=== PATIENT | female | born 1935 | race Caucasian/White ===

== ENCOUNTER 2017-03-20 21:20 | Emergency (ER) | payer MEDICARE, OTHER ==
--- NOTE | ~2017-03-20 | CT71 ---
[facility] A Service [facility] RADIOLOGY TEXT RESULTS PATIENT: DELONTE HERRING LOCATION: [facility] : 37 UNIT #: [id number] AGE: [address]: Reyna Mccarthy MD SEX: F ORDER DR: [id number] [place] [id number] [facility]. [place], [place] [address] [id number] E MR#: [id number] Acc #: [id number] NAME: DELONTE HERRING : 1935 SEX: F STUDY DATE/TIME: 03/20/2017 23:50 UNIT: [facility] ROOM: STUDY DESCRIPTION: CT Head Wo Contrast Attending Physician: Reyna Mccarthy M.D. Ordering Physician: Reyna Mccarthy M.D. Primary Care Physician: Sofiya Flowers M.D. MEDICAL IMAGING REPORT This report is preliminary unless electronic signature is present EXAM CT head INDICATIONS Headache for [address] of the head without contrast. This CT exam was performed with one or more of the following radiation dose reduction techniques: Automatic exposure control, adjustment of mA and/or kV according to patient size, and iterative reconstruction. COMPARISON 04/11/2014. FINDINGS Axial noncontrast images were obtained from the skull base to the vertex. Ventricular size and configuration are normal. There is no evidence of acute infarct or hemorrhage. There are no extra-axial fluid collections. No mass lesion or mass effect is seen. There are no skull fractures. There is moderate atherosclerotic calcifications within the intracranial vasculature. IMPRESSION Normal noncontrast head CT. Dictated by... Tapan Dye M.D. THIS IS AN ELECTRONICALLY VERIFIED REPORT Tapan Dye M.D. at 03/21/2017 4:02 AM [facility] A Service [facility] RADIOLOGY TEXT RESULTS PATIENT: DELONTE HERRING LOCATION: [facility] : 37 UNIT #: [id number] AGE: [address]: Reyna Mccarthy MD SEX: F ORDER DR: Milly TD: 03/21/2017 03:29 JOB #: [id number] MEDICAL IMAGING REPORT Page 1 of 1 COPY
[~2017-03-20 21:20] MED LIST: ACETAMINOPHEN PO; ALBUTEROL17 GM INH; ATENOLOL25 MG PO; COUMADIN2.5 MG PO; COUMADIN3 MG PO; COUMADIN5 MG PO; FUROSEMIDE40 MG PO; GLIPIZIDE10 MG PO; GLUCOTROL10 MG PO; IMDUR-ER30 M2 PO; JANUVIA50 MG PO; LANOXICAPS0.1 M1 PO; LANOXIN PO; LASIX PO; LIPITOR PO; LISINOPRIL5 MG PO; METFORMIN HCL1000 M1 PO; METFORMIN HCL500 M1 PO; METFORMIN PO; NORCO 5/325 TAB1 TAB PO; PERCOCET5/325 PO; SIMVASTATIN20 MG PO; TENORMIN25 M1 PO; VENTOLIN5 MG/ML; ZESTRIL5 MG PO
[2017-03-20] MEDS ORDERED: COUMADIN5 MG PO (21:37)
[2017-03-20] MEDS ORDERED: METFORMIN HCL1000 M1 PO (21:37)
[2017-03-20] MEDS ORDERED: LASIX PO (21:38)
[2017-03-20] MEDS ORDERED: IMDUR-ER30 M1 PO (21:38)
[2017-03-20] MEDS ORDERED: ZESTRIL10 M1 PO (21:38)
[2017-03-20] MEDS ORDERED: VIT B-12 PO (21:38)
[2017-03-20] MEDS ORDERED: ADVANCED EYE RE OU (21:39)
[2017-03-20] MEDS ORDERED: LORTAB 5-325 M1 EACH PO (21:39)
== END 2017-03-21 04:00 | disposition home or self-care (01) ==
LOC: CED 21:20
DX: R51 Headache (principal); Z88.8 Allergy status to other drugs, medicaments and biological substances; Z79.899 Other long term (current) drug therapy; Z79.01 Long term (current) use of anticoagulants
CPT/HCPCS: 70450; 99284

== ENCOUNTER 2017-04-06 15:19 | Inpatient (IN) | payer MEDICARE, OTHER ==
--- NOTE | ~2017-04-06 | CR63 ---
[facility] A Service of [facility] RADIOLOGY TEXT RESULTS PATIENT: DELONTE HERRING LOCATION: [facility] 568-01 : 37 UNIT #: [id number] AGE: [address]: Hima Norman MD SEX: F ORDER DR: [id number] [facility] [address] [place], [place] [address] [id number] I MR#: [id number] Acc #: [id number] NAME: DELONTE HERRING : 1935 SEX: F STUDY DATE/TIME: 04/17/2017 15:31 UNIT: [facility] ROOM: [facility] STUDY DESCRIPTION: CR Chest 2 View Attending Physician: Hima Norman M.D. Ordering Physician: Jose Hnog M.D. Primary Care Physician: Sofiya Flowers M.D. MEDICAL IMAGING REPORT This report is preliminary unless electronic signature is present EXAM Chest 04/17/2017 15:31 hours HISTORY 81-year-old woman, short of air cough, respiratory failure. History of diabetes, lymphoma. COMPARISON Chest 04/16/2017. FINDINGS 2-view chest demonstrates cardiomegaly with vascular congestion and prominent bilateral pleural effusions. Right neck approach central line remains well positioned. No appreciable improvement over the past 24 hours. IMPRESSION Findings consistent with congestive heart failure with bilateral pleural effusions. Central line remains satisfactorily positioned Dictated by... Nicolas Bhakta M.D. THIS IS AN ELECTRONICALLY VERIFIED REPORT Nicolas Bhakta M.D. at 04/18/2017 9:39 AM KHADRA/grace TD: 04/17/2017 19:57 JOB #: [id number] MEDICAL IMAGING REPORT Page 1 of 1 COPY
--- NOTE | ~2017-04-06 | CR72 ---
[facility] A Service of [facility] RADIOLOGY TEXT RESULTS PATIENT: DELONTE HERRING LOCATION: [address] : 37 UNIT #: [id number] AGE: [address]: Hima Norman MD SEX: F ORDER DR: [id number] [facility] [address] [place], [place] [address] [id number] I MR#: [id number] Acc #: [id number] NAME: DELONTE HERRING. : 1935 SEX: F STUDY DATE/TIME: 04/13/2017 5:26 UNIT: [facility] ROOM: [facility] STUDY DESCRIPTION: CR Chest Single View Portable Attending Physician: Hima Norman M.D. Ordering Physician: Jose Hong M.D. Primary Care Physician: Sofiya Flowers M.D. MEDICAL IMAGING REPORT This report is preliminary unless electronic signature is present EXAM Portable chest INDICATION Follow up tracheostomy tube and infiltrates. FINDINGS Today's portable view of the chest shows no change from yesterday's study. The central venous catheter and endotracheal tube are stable. There is left lower lobe atelectasis or infiltrate. Dictated by... Geoff Aceves M.D. THIS IS AN ELECTRONICALLY VERIFIED REPORT Geoff Aceves M.D. at 04/13/2017 1:55 PM BIRGIT/petar TD: 04/13/2017 06:32 JOB #: [id number] MEDICAL IMAGING REPORT Page 1 of 1 COPY
--- NOTE | ~2017-04-06 | CR72 ---
[facility] A Service of [facility] RADIOLOGY TEXT RESULTS PATIENT: DELONTE HERRING LOCATION: [address] : 37 UNIT #: [id number] AGE: [address]: Hima Norman MD SEX: F ORDER DR: [id number] [facility] [address] [place], [place] [address] [id number] I MR#: [id number] Acc #: [id number] NAME: DELONTE HERRING. : 1935 SEX: F STUDY DATE/TIME: UNIT: [facility] ROOM: [facility] STUDY DESCRIPTION: CR Chest Single View Portable Attending Physician: Hima Norman M.D. Ordering Physician: Michele Nagel M.D. Primary Care Physician: Sofiya Flowers M.D. MEDICAL IMAGING REPORT This report is preliminary unless electronic signature is present EXAM Portable chest 04/15 at 04:21 INDICATIONS Shortness of air, CHF. Ventilator patient. TECHNIQUE/COMPARISON AP portable chest compared with 04/14/2017 FINDINGS Cardiomegaly is stable. ET tube and right IJ line remain in good position. There is a small left effusion. There is still some mild infiltrates in both mid and lower lungs, but they are slightly improved in the interval. No pneumothorax. Dictated by... Jeffrey Vance Jr., M.D. THIS IS AN ELECTRONICALLY VERIFIED REPORT Jeffrey Vance Jr., M.D. at 04/15/2017 9:26 PM RLK/douglas TD: 04/15/2017 11:33 JOB #: [id number] MEDICAL IMAGING REPORT Page 1 of 1 COPY
--- NOTE | ~2017-04-06 | CR72 ---
[facility] A Service of [facility] RADIOLOGY TEXT RESULTS PATIENT: DELONTE HERRING LOCATION: [place] [id number] : 37 UNIT #: [id number] AGE: [address]: Hima Norman MD SEX: F ORDER DR: [id number] [facility] [address] [place], [place] [address] [id number] I MR#: [id number] Acc #: [id number] NAME: DELONTE HERRING : 1935 SEX: F STUDY DATE/TIME: 04/09/2017 8:10 UNIT: [facility] ROOM: [facility] STUDY DESCRIPTION: CR Chest Single View Portable Attending Physician: Hima Norman M.D. Ordering Physician: Chitra Escobar M.D. Primary Care Physician: Sofiya Flowers M.D. MEDICAL IMAGING REPORT This report is preliminary unless electronic signature is present EXAM AP portable chest 04/09/2017 HISTORY Shortness of breath today. History of congestive heart failure. COMPARISON AP portable chest 04/06/2017. FINDINGS Diffuse interstitial thickening in both lungs appear slightly increased, thought to represent worsening edema. There are small layering bilateral pleural effusions, increased on the right, new on the left. Stable degree of cardiac enlargement. No pneumothorax. IMPRESSION Features of interstitial edema appear increased compared to 04/02/2017 with increasing small bilateral pleural effusions. Dictated by... Kary Stallings M.D. THIS IS AN ELECTRONICALLY VERIFIED REPORT Kary Stallings M.D. at 04/10/2017 8:46 AM ORLY/petar TD: 04/09/2017 11:01 JOB #: [id number] MEDICAL IMAGING REPORT Page 1 of 1 COPY
--- NOTE | ~2017-04-06 | CO ---
Unit #: [id number] #: [id number] Patient: JODIE HERRING [id number] [address] [place], [place] [address] [id number] I MR#: [id number] NAME: JODIE HERRING ROOM: 568 Age: 81 Sex: F Admission Date: 04/06/2017 : 1935 Attending Physician: Hima Norman M.D. Primary Care Physician: Sofiya Flowers M.D. Consultation Date: 04/18/2017 CONSULTATION REPORT REASON FOR CONSULTATION Thrombocytopenia, please evaluate. HISTORY OF PRESENT ILLNESS Ms. Jodie Herring is 81 years old, well known to me with a history of low-grade non-Hodgkin lymphoma, treated with chemotherapy in 2011 when she presented with liver involvement, underwent rituximab reactivation of hepatitis B, which spontaneously subsided. She has since been followed without any evidence of disease. She was admitted to the hospital on 04/06/2017 with shortness of breathing and bilateral leg edema and was found to be in congestive heart failure and has been evaluated by Pulmonary as well as Nephrology with findings of worsening kidney function. She is a longstanding diabetic. Platelet count at the time of admission was normal as it has been in the office as an outpatient. Following admission on 04/06/2017, the platelet count was 209,000. Platelet count started dropping on 04/12/2017 to 133,000 and is currently 87,000 with a allan of 82,000. CBC on 04/07/2017 showed a white count of 5.9, hemoglobin is 10 and a platelet count of 185,000. Her current hemoglobin is 10.3, white count is 9.1. Ms. Verdin tells me she has been bruising, but this is not a new problem after being on Coumadin. No history of epistaxis, gum bleeding, melena, or hematochezia. No prior history of problems with thrombocytopenia except for immediately after her treatments. PAST MEDICAL HISTORY Hyperlipidemia, type 2 diabetes, hepatitis B, hypertension, and non-Hodgkin lymphoma as mentioned and diagnosed in 2011. She also has history of coronary artery disease and chronic atrial fibrillation on long-term anticoagulation with warfarin. PAST SURGICAL HISTORY Includes cholecystectomy, tonsillectomy, hysterectomy and cataract extraction. MEDICATIONS Both in and out of the hospital were reviewed. She received one dose of Lovenox on 04/15/2017, which is after the initiation of thrombocytopenia. Review of the medications does not show any new medications, which may be potentially culprits. Home medications include Coumadin, metformin, Januvia, Lasix, lisinopril, glipizide, Lipitor, hydrocodone and Symbicort. ALLERGIES Listed to macrolides, prednisone and simvastatin. Unit #: [id number] #: [id number] Patient: JODIE HERRING SOCIAL HISTORY Single lives by herself. Does not smoke. Quit drinking alcohol. She is . FAMILY HISTORY Negative for blood disorders except for sister with lung cancer. REVIEW OF SYSTEMS A 14-point review of systems was taken: CONSTITUTIONAL: Fatigue, weakness and decreased appetite. EYES: Negative. EARS, NOSE, MOUTH, AND THROAT: Some hardness of hearing. CARDIOVASCULAR: Shortness of breathing as discussed. No palpitations. RESPIRATORY: Shortness of breathing, cough, expectoration which is scant. No hemoptysis. GASTROINTESTINAL: Negative. GENITOURINARY: Negative. NEUROLOGIC: Negative. ALLERGIC: Negative. LYMPHATIC: Negative. SKIN: Decubitus ulcer. PHYSICAL EXAMINATION GENERAL: She is a pleasant woman, lying in bed, in mild distress secondary to shortness of breathing. VITAL SIGNS: Temperature is 97.5, pulse 88, respirations 18, blood pressure 120/66, pulse oximetry 97% on 2 L. HEENT: Shows pupils are equal, reactive well to light. She is pale, but not icteric. Mucosa moist. NECK: Without adenopathy, JVD, or thyromegaly. CARDIOVASCULAR: First and second heart sounds are heard and regular. LUNGS: Chest expansion is symmetric. Bilateral basal rales. ABDOMEN: Soft and nontender. Bowel sounds are active. No organomegaly. EXTREMITIES: Showed 1+ pitting pedal edema. Foot pulses present. NEUROLOGIC: She is awake, alert, and oriented x3 without any focal findings. SKIN: Scattered bruises probably related to her phlebotomies and a large bruise in the right forearm again related to blood draw. PSYCHIATRIC: Normal affect. ALLERGIC AND LYMPHATIC: Negative with no palpable lymph nodes. DIAGNOSTIC STUDIES LABORATORY RESULTS: Pro-time is 13.1, INR 3.5. Complete metabolic panel shows a BUN of 31 and creatinine is 1.98, EGFR is 24.6, albumin is 3.4, magnesium is 3.1. CBC today shows a white count of 9.1, hemoglobin is 10.3, and platelet count is 87,000. ASSESSMENT/PLAN Ms. Jodie Verdin is 81 years old with history of non-Hodgkin lymphoma, diagnosed in 2011, admitted with worsening of heart failure and acute on chronic kidney disease. She has moderate thrombocytopenia during the hospital stay, which may be marginally better with the platelet count currently being 89,000 and previously 87,000. She has had no significant changes in her hemoglobin during this hospital stay and this coupled with currently normal RDW would suggest that thrombotic microangiopathy is unlikely to be the cause. She has had mild thrombocytopenia following the chemotherapy in the past and this may be related to the stress of acute illness. She is also moderately anemic, much of which is chronic and Unit #: [id number] #: [id number] Patient: JODIE HERRING likely related to her chronic kidney disease. RECOMMENDATIONS 1. Iron studies to evaluate for Procrit, renal replacement therapy or parenteral iron supplementation. 2. LDH, retic count, haptoglobin. Review this with a peripheral smear to evaluate for thrombotic microangiopathy. 3. Continue serial observation of CBC. 4. Plans discussed with the patient. She likely will require skilled rehab placement after discharge. Thank you for allowing me to participate in her care. Dictated by... Harinder Thompson M.D. FRANCO/jomar TD: 04/19/2017 04:25 JOB #: [id number] CONSULTATION REPORT Page 1 of 1 X Harinder Thompson MD CONSULTATION REPORT
--- NOTE | ~2017-04-06 | CR72 ---
[facility] A Service of [facility] RADIOLOGY TEXT RESULTS PATIENT: DELONTE HERRING LOCATION: [place] [address] : 37 UNIT #: [id number] AGE: [address]: Hima Norman MD SEX: F ORDER DR: [id number] [facility] [address] [place], [place] [address] [id number] I MR#: [id number] Acc #: [id number] NAME: DELONTE HERRING : 1935 SEX: F STUDY DATE/TIME: 04/11/2017 UNIT: [facility] ROOM: [facility] STUDY DESCRIPTION: CR Chest Single View Portable Attending Physician: Hima Norman M.D. Ordering Physician: Jose Hong M.D. Primary Care Physician: Sofiya Flowers M.D. MEDICAL IMAGING REPORT This report is preliminary unless electronic signature is present EXAM Chest portable 04/11/2017 12:44 hours HISTORY 81-year-old woman with shortness of air, right lower lobe infiltrates, endotracheal tube placement today. Symptoms since 03/1969 17 COMPARISON 04/11/2017 05:56 hours FINDINGS Single upright view demonstrates a new endotracheal tube with tip terminating 3.2 cm above the halle. Heart size is stable. There is patchy right greater than left midlung density with interstitial prominence at the bases. A right effusion cannot be excluded. IMPRESSION New endotracheal tube tip is 3.2 cm above the halle. There are persistent right greater than left parenchymal densities in the lungs which could represent asymmetric edema or pneumonia. Question right effusion. Dictated by... Lilian Gregg M.D. THIS IS AN ELECTRONICALLY VERIFIED REPORT Lilian Gregg M.D. at 04/12/2017 9:32 AM ZIONM/rhiannon TD: 04/11/2017 13:18 JOB #: [id number] MEDICAL IMAGING REPORT [facility] A Service [facility] RADIOLOGY TEXT RESULTS PATIENT: DELONTE HERRING LOCATION: [address] : 37 UNIT #: [id number] AGE: [address]: Hima Norman MD SEX: F ORDER DR: Page 1 of 1 COPY
--- NOTE | ~2017-04-06 | EKG ---
PATIENT: DELONTE HERRING UNIT #: [id number] Ventricular Rate: 108 BPM Atrial Rate: 107 BPM QRS Duration: 80 ms Q-T Interval: 308 ms QTC Calculation(Bezet): 412 ms Calculated R [place]: -34 degrees Calculated T [place]: 66 degrees Diagnosis Line: Atrial fibrillation with rapid ventricular Diagnosis Line: response Diagnosis Line: Left axis deviation Diagnosis Line: Abnormal ECG Diagnosis Line: When compared with ECG of 13-APR-2014 05:36, Diagnosis Line: Vent. rate has increased BY 48 BPM Diagnosis Line: Nonspecific T wave abnormality no longer evident Diagnosis Line: in Inferior leads Diagnosis Line: Confirmed by ANTHONY ALEXIS MD ([id number]) on 04/08/2017 Diagnosis Line: 4:28:01 PM INTERPRETING MD: REUBEN PEARCE
--- NOTE | ~2017-04-06 | CR72 ---
[facility] A Service of [facility] & [facility] RADIOLOGY TEXT RESULTS PATIENT: DELONTE HERRING LOCATION: [place] [address] : 37 UNIT #: [id number] AGE: [address]: Hima Norman MD SEX: F ORDER DR: [id number] [facility] [address] [place], [place] [address] [id number] I MR#: [id number] Acc #: [id number] NAME: DELONTE HERRING : 1935 SEX: F STUDY DATE/TIME: 04/12/2017 5:22 UNIT: [facility] ROOM: [facility] STUDY DESCRIPTION: CR Chest Single View Portable Attending Physician: Hima Norman M.D. Ordering Physician: Jose Hong M.D. Primary Care Physician: Sofiya Flowers M.D. MEDICAL IMAGING REPORT This report is preliminary unless electronic signature is present EXAM Portable chest INDICATION Shortness of breath for 6 days. Follow up support lines and tubes. COMPARISON 04/11/2017. FINDINGS There has been interval placement of a nasoenteric tube with tube projecting below the level of the diaphragm but the tip is not seen on this study. ET tube and right IV central venous catheter are stable. Slight improvement of interstitial and alveolar infiltrates within the lungs. IMPRESSION Slight interval improvement of interstitial and alveolar infiltrates within the lungs. Dictated by... Joshua Garcia M.D. THIS IS AN ELECTRONICALLY VERIFIED REPORT Joshua Garcia M.D. at 04/12/2017 6:58 AM TANI/petar TD: 04/12/2017 06:52 JOB #: [id number] MEDICAL IMAGING REPORT Page 1 of 1 COPY
--- NOTE | ~2017-04-06 | CR72 ---
[facility] A Service of [facility] RADIOLOGY TEXT RESULTS PATIENT: DELONTE HERRING LOCATION: [facility] CICCU3-20 : 37 UNIT #: [id number] AGE: [address]: Hima Norman MD SEX: F ORDER DR: [id number] [facility] [address] [place], [place] [address] [id number] I MR#: [id number] Acc #: [id number] NAME: DELONTE HERRING. : 1935 SEX: F STUDY DATE/TIME: 04/06/2017 16:24 UNIT: [facility] ROOM: [id number] STUDY DESCRIPTION: CR Chest Single View Portable Attending Physician: Osman Manzanares M.D. Ordering Physician: Reyna Mccarthy M.D. Primary Care Physician: Sofiya Flowers M.D. MEDICAL IMAGING REPORT This report is preliminary unless electronic signature is present EXAMINATION AP portable chest. DATE 04/06/2017 HISTORY Cough and shortness of breath for 2-1/2 weeks. Additional history of diabetes, hypertension, 30-year smoking history. COMPARISON PA and lateral chest radiograph, 04/06/2017 at 13:57. FINDINGS Interstitial thickening in both lungs with mild cardiomegaly, favored to represent features of interstitial edema, not appreciably changed. There may be a trace right pleural effusion. No lung consolidations are identified. Lung bases are partially obscured by the patient's soft tissue habitus. Benign calcified granuloma in the periphery of the right midlung. IMPRESSION 1. Mild cardiomegaly with features of interstitial edema. 2. No definite lung consolidation. There is partial attenuation of lung bases about the patient's body habitus. 3. Questionable trace right pleural effusion. Dictated by... Kary Stallings M.D. THIS IS AN ELECTRONICALLY VERIFIED REPORT Kary Stallings M.D. at 04/09/2017 9:29 AM [facility] A Service of [facility] RADIOLOGY TEXT RESULTS PATIENT: DELONTE HERRING LOCATION: [facility] CICCU3-20 : 37 UNIT #: [id number] AGE: [address]: Hima Norman MD SEX: F ORDER DR: ORLY/thelma TD: 04/06/2017 21:09 JOB #: [id number] MEDICAL IMAGING REPORT Page 1 of 1 COPY
--- NOTE | ~2017-04-06 | DS ---
Unit #: [id number] #: [id number] Patient: DELONTE HERRING [id number] [address] [address] [id number] I MR#: [id number] NAME: DELONTE HERRING ROOM: 568 Age: 81 Sex: F Admission Date: 04/06/2017 : 1935 Discharge Date: 04/20/2017 Attending Physician: Hima Norman M.D. Primary Care Physician: Sofiya Flowers M.D. DISCHARGE SUMMARY DISCHARGE DIAGNOSES 1. Acute hypoxic respiratory failure, resolved. 2. Atypical pneumonia, stable. 3. Urinary tract infection with e-coli. 4. Chronic obstructive pulmonary disease. 5. Acute on chronic diastolic congestive heart failure, compensated. 6. Permanent atrial fibrillation with controlled ventricular rate. 7. Chronic anticoagulation with Coumadin, INR currently therapeutic. 8. Coronary artery disease with a history of angioplasty, with details unavailable. 9. Two-dimensional echocardiogram 04/07/2017 revealed an ejection fraction of 50%. Mild LVH. D-shaped left ventricle, consistent with right ventricular volume overload/pressure overload. Left atrium mildly dilated. Moderately dilated RV. RVSP 47 mmHg. Aortic valve area 2 cm2 with a maximum gradient 28 mmHg and a mean gradient of 17 mmHg. Mild mitral regurgitation. Mild tricuspid regurgitation. Suboptimal study due to poor echocardiographic window. 10. Morbid obesity. 11. Acute kidney on chronic kidney disease stage 3. 12. Hypertension. 13. Hyperlipidemia. 14. Diabetes mellitus type 2. 15. History of hepatitis B. 16. History of chronic anemia. 17. History of non-Hodgkin lymphoma. 18. Thrombocytopenia, stable. 19. Reformed tobacco abuse. DISCHARGE MEDICATIONS 1. Symbicort 160/4.5 mcg 1 puff inhalation daily. 2. Cortisporin 1 drop a.d. t.i.d. 3. Coumadin 2.5 mg p.o. at bedtime. 4. Januvia 50 mg daily. 5. Claritin 50 mg p.o. daily. 6. Metoprolol tartrate 50 mg p.o. b.i.d. 7. Furosemide 40 mg p.o. daily. 8. Lipitor 10 mg p.o. at bedtime. 9. NovoLog high-dose sliding scale protocol morning and evening. 10. Pepcid 20 mg p.o. b.i.d. 11. Hydrocodone 5/325 mg 1 tablet p.o. q.6 h. p.r.n. pain. 12. Glucotrol 10 mg p.o. daily. 13. Imdur ER 30 mg p.o. daily. HOSPITAL COURSE Unit #: [id number] #: [id number] Patient: DELONTE HERRING This is a 81-year-old white female known to Dr. Norman, with a past medical history of coronary artery disease with a history of angioplasty with unknown details. The patient is known to have permanent atrial fibrillation on chronic anticoagulation with Coumadin. She has a history of chronic diastolic congestive heart failure, hypertension, hyperlipidemia, diabetes mellitus type 2, anemia, non-Hodgkin lymphoma as well as chronic kidney disease and chronic obstructive pulmonary disease. She presented to the emergency department on 04/06/2017 with complaints of shortness of breath. She was sent from her primary care physician's office with low O2 saturation of 76%. In the emergency department her O2 saturation was 95%. Initial BNP was 249. INR was mildly elevated at 3.9. Potassium was initially critical at 6.1. Creatinine was 1.2 with a BUN of 38. She was admitted for acute on chronic diastolic congestive heart failure and chronic kidney disease with hyperkalemia. She was placed on diuretics, strict intake and output and fluid restriction. Her potassium was treated with Kayexalate, calcium gluconate, insulin and D50. Her lisinopril was discontinued due to hyperkalemia. There were no complaints of chest pain. Cardiac enzymes are negative. She ruled out for myocardial infarction. A two-dimensional echocardiogram was obtained due to worsening congestive heart failure. Images revealed an ejection fraction of 60%. There was evidence of right ventricular volume overload and pressure overload. RVSP was 47. She had mild to moderate valvular disease. Please see details above. Dr. Escobar with nephrology was consulted for hyperkalemia and assistance with volume. The patient was placed on daily weights and a urinalysis and renal ultrasound were obtained. Please see details below. Her beta livia was adjusted. Her oral nitrates were stopped. She had some confusion on 04/09/2017 and ABG was obtained. Dr. Hong was consulted with pulmonology. She was given an extra dose of Lasix. She was placed on BiPAP, steroids and antibiotics. No sedating medicines were given. Blood cultures and sputum cultures were obtained. Nephrology stopped her Lasix briefly due to elevated creatinine and she was placed on gentle fluids. She was changed transferred to the intensive care unit for further management. She continued on BiPAP and antibiotics. She was found to be positive for pneumonia. However, final sputum report revealed rare normal respiratory taylor present. Cultures were negative. On 04/11/2017 a PICC line was ordered. The patient dropped her O2 saturations and ultimately had to be intubated on 04/11/2017. Dobbhoff tube was placed for medications. A central line was subsequently placed instead of PICC line on 04/11/2017. The patient was recently started on a Cardizem drip for management of her atrial fibrillation. Cardizem drip was discontinued. On 04/13/2017 she started weaning from the ventilator. She was extubated on 04/15/2017. She was ultimately transferred to [facility] telemetry for further management of respiratory failure and pneumonia. Physical therapy and occupational therapy were consulted and she was found to need outpatient rehab. On 04/17/2017 Dr. Thompson was consulted due to low platelets. The patient's platelets started at 208,000 and then dropped as low as 82,000. Labs were obtained by hematology. The patient's platelets have not dropped any further and are stable. The patient was given a percussion vest, which was also discontinued. Her steroids were weaned. Her antibiotics were stopped on 04/19/2017. Her creatinine is better and is currently 1.8. It did peak at 2.9. Films revealed atrial fibrillation with controlled ventricular rates. Volume Unit #: [id number] #: [id number] Patient: DELONTE HERRING status is stable. She is in stable condition and will be sent to [facility] today. Her Coumadin has been restarted at a lower dose. She will need outpatient INR testing with adjustment as needed. The patient's central line will be discontinued. Her IV steroids have been stopped and she is on all oral medications. CONSULTANTS 1. Dr. Escobar with nephrology. 2. Dr. Hong with pulmonology. 3. Dr. Thompson with hematology. DIAGNOSTIC DATA LABORATORY: White blood cell count 9.7, hemoglobin 9.7, hematocrit 31.2, platelets 92, sodium 137, potassium 4.5, chloride 92, CO2 36, BUN 80, creatinine 1.8, glucose 270, magnesium 1.8, total protein 5.5, albumin 3.2, AST 21, ALT 32, alkaline phosphatase 42, LVH 226, troponin 0.03 and 0.03. BNP 141. Hemoglobin A1c 6.9, lactic acid 1.2, TSH 1.34. Procalcitonin 0.08. INR 2.3 today. Peak INR 3.9. HVSAG negative. Hepatitis C antibody negative. AIDE screen pending. Compliment C3 128, compliment C4 30. AIDE negative. HIV nonreactive. Urinalysis with 3+ leukocytes, 2+ protein, 2+ blood, 2+ bacteria. Blood cultures negative. Sputum negative. Urine positive for e-coli. IMAGING: Chest x-ray on 04/17/2017 revealed no significant change in appearance. Small bilateral pleural effusions with bibasilar atelectasis. The heart size is stable. No new infiltrates. PHYSICAL EXAMINATION GENERAL: This is a 81-year-old female in no acute distress. VITALS: Blood pressure 100/63, heart rate 109. SKIN: Warm and dry. NECK: Supple. No jugular venous distension. No hepatojugular reflux. Normal carotid upstrokes. HEART: S1 and S2. Irregular irregular. No murmurs, rubs or gallops. LUNGS: Bilateral breath sounds have good air entry throughout all lung gilmore. Respirations are even and non-labored. No rales, rhonchi, or wheezes. ABDOMEN: Pendulous. Positive bowel sounds auscultated times four quadrants. EXTREMITIES: Bilateral lower extremities have decreased. Dorsalis pedis and posterior tibial pulses 2+. Capillary refill less than 3 seconds. DISCHARGE INSTRUCTIONS 1. The patient will be discharged to rehab today. 2. Follow up with Dr. Norman on 06/12/2017 at 1:45 p.m. 3. Follow up with Dr. Hong in six to eight weeks. 4. Follow up with Dr. Escobar or associate in six to eight weeks. 5. Follow up with Dr. Thompson in six to eight weeks. 6. Congestive heart failure education provided. 7. PT/INR monitoring as outpatient with adjustment of Coumadin as needed. Dictated by... Carla B. Jones, FAMILY COUNSELOR for Kathryn Gregory M.D. TR/gz Unit #: [id number] #: [id number] Patient: KEIRA HERRINGRODGER Fuentes TD: 04/20/2017 13:07 JOB #: [id number] DISCHARGE SUMMARY Page 1 of 1 X X DISCHARGE SUMMARY
--- NOTE | ~2017-04-06 | CR7 ---
[facility] A Service of [facility] RADIOLOGY TEXT RESULTS PATIENT: DELONTE HERRING [facility] UNIT #: [id number] AGE: [address]: Hima Norman MD SEX: F ORDER DR: [id number] [facility] [address] [place], [place] [address] [id number] MR#: [id number] Acc #: [id number] NAME: DELONTE HERRING : 1935 SEX: F STUDY DATE/TIME: 04/11/2017 18:27 UNIT: [facility] ROOM: [facility] STUDY DESCRIPTION: CR Abdomen Single AP View Attending Physician: Hima Norman M.D. Ordering Physician: Hima Norman M.D. Primary Care Physician: Sofiya Flowers M.D. MEDICAL IMAGING REPORT This report is preliminary unless electronic signature is present EXAM Frontal abdomen, 04/11/17. INDICATION 81-year-old female for Dobbhoff tube placement. TECHNIQUE Frontal abdomen was performed. COMPARISON No comparisons. FINDINGS Exam degraded by motion. There is an enteric tube present and the tip projects over expected location of a low-lying gastric pylorus or first segment of the duodenum. Probable small left effusion. IMPRESSION 1. The tip of the enteric tube is at the expected level of the gastric antrum/pylorus or perhaps the first segment of the duodenum of a low-lying stomach. Dictated by... Christophe Ash M.D. THIS IS AN ELECTRONICALLY VERIFIED REPORT Christophe Ash M.D. at 04/11/2017 10:18 PM Yusuf [facility] A Service [facility] RADIOLOGY TEXT RESULTS PATIENT: DELONTE HERRING [facility] : 37 UNIT #: [id number] AGE: [address]: Hima Norman MD SEX: F ORDER DR: TD: 04/11/2017 20:39 JOB #: [id number] MEDICAL IMAGING REPORT Page 1 of 1 COPY
--- NOTE | ~2017-04-06 | CO ---
Unit #: [id number] #: [id number] Patient: DELONTE HERRING [id number] [address] [place], [place] [address] [id number] MR#: [id number] NAME: DELONTE HERRING ROOM: [facility] Age: 81 Sex: F Admission Date: 04/06/2017 : 1935 Attending Physician: Hima Norman M.D. Primary Care Physician: Sofiya Flowers M.D. Consultation Date: 04/09/2017 CONSULTATION REPORT REASON FOR CONSULTATION Urgent evaluation for respiratory failure. HISTORY OF PRESENT ILLNESS A 81-year-old female who denies any history of lung disease, although apparently she is on some inhaled bronchodilators at home. Please note, her history may be somewhat unreliable. Her chief complaint to me was "I'm sleepy." She was awake, sitting up in bed, eating breakfast. She seemed in much less distress and I anticipated based on her ABG. She does have some chest congestion, some sputum production. She denies anginal chest pain, hemoptysis, fever, or wheezing. PAST MEDICAL HISTORY Remarkable for coronary artery disease, diastolic heart failure, pulmonary hypertension, permanent atrial fibrillation, hypertension, hyperlipidemia, diabetes, hepatitis B, non-Hodgkin lymphoma, and there is questionable history of COPD. MEDICATIONS At home were Coumadin, metformin, Januvia, Lasix, lisinopril, glipizide, Lipitor, Imdur, hydrocodone, and Symbicort. I see no benzodiazepines on her MAR. There is hydrocodone, it appears that she may have received 2 doses. ALLERGIES Macrolide antibiotics, prednisone, and simvastatin. When I asked her what her reaction was to prednisone, she could not really tell me, she could not describe the circumstances or definite reaction. She said "it may have taken my breath." SOCIAL HISTORY She lives at home. She has not been recently hospitalized other than this 3-day hospitalization. She is a reformed tobacco user, although she could not tell me exactly when she quit and she apparently does not drink alcohol. FAMILY HISTORY No definite familial lung disease. REVIEW OF SYSTEMS She does snore. She has not been diagnosed with sleep apnea, but said she was not tolerant to CPAP mask. Circumstances again are vague, but it sounds as if she may have been attempted with CPAP at one point in time, Unit #: [id number] #: [id number] Patient: DELONTE HERRING possibly during acute hospitalization. No fever. She does have arthritic pain that she says in her ribs and it comes and goes and has been that way for months. No chest pain per se. No abdominal pain, melena, hematochezia, hematuria, dysuria, focal weakness, paresthesias, leg pain, swelling, headache, dizziness. Further review of systems negative. PHYSICAL EXAMINATION GENERAL: Reveals an obese female. She appears sleepy, but she is awake and alert and in no distress. VITAL SIGNS: She is afebrile. Pulse 84, respiratory rate is 18, blood pressure is 95/57, 5 feet and 1, weight 253 pounds. BMI has not been calculated. HEENT: Pupils equal, round, and reactive to light. Sclerae anicteric. Head atraumatic. NECK: Supple. No supraclavicular or cervical adenopathy appreciated. She has dentures in place. Upper dentures, she has natural teeth which are in poor dentition. Mucous membranes are somewhat dry. CHEST: Decreased breath sounds. Decreased tidal volumes. She has crackles somewhat bilaterally more prominent posterior right lower lobe. There is some suggestion of egophony. CARDIAC: Reveals an irregular rhythm. Distant heart tones. Soft murmur. ABDOMEN: Soft and nontender. No hepatomegaly or rebound. EXTREMITIES: Reveal no clubbing, cyanosis, or edema. No calf tenderness. SKIN: Warm and dry without rash or diaphoresis. NEUROLOGIC: Grossly intact. No focal motor or sensory deficits. DIAGNOSTIC STUDIES IMAGING STUDIES: Chest x-ray, apparent new right lower lobe infiltrate. LABORATORY RESULTS: Arterial blood gas; pH is 7.18, pCO2 of 86, pO2 of 75. BUN is 59, creatinine is 2.9 and that has steadily increased, her sodium is 130. BNP is 392. INR is 2.1. Initial cardiac enzymes are negative. White blood cell count 5.9, hemoglobin 10, platelet count 185. Urinalysis; innumerable white cells, 25 to 50 red cells. Blood cultures have not been performed. Urine has been collected and is pending. Rhythm strips are atrial fibrillation. IMPRESSION 1. Acute hypercapnic hypoxemic respiratory failure, multifactorial. I suspect she has a new right lower lobe pneumonia. 2. Somnolence secondary to hypercapnia. 3. Suspect obstructive sleep apnea and some degree of obesity hypoventilation syndrome. 4. Pulmonary hypertension. Echocardiogram with normal LV function. Estimated RVSP at 47. 5. Coronary artery disease, diastolic heart failure, atrial fibrillation, urinary tract infection, and multiple medical problems listed above. PLAN Transfer to the intensive care unit, attempt noninvasive mask ventilation. I have discussed with the patient the severity of this condition and if she cannot tolerate mask ventilation, she may require intubation and mechanical ventilation. Blood cultures and broad-spectrum antibiotics. I will put her at somewhat increased risk of antibiotic resistant organisms because of her current hospitalization ranging 2 to 3 days. However, based on cultures, I suspect will be able to deescalate relatively rapidly. I would treat for atypicals for sure. I have discussed with her, her allergy to prednisone. As above, the circumstances are very Unit #: [id number] #: [id number] Patient: DELONTE HERRING zainab and I doubt that it is a true allergic reaction. I believe the benefits of treatment for severe pneumonia and possible airways disease in the setting of acute respiratory failure outweigh the risks of an allergic reaction. Therefore, a brief pulse steroids will be administered. Obviously, follow up cultures and adjust antibiotics as needed. Ultimately, she would benefit from nocturnal polysomnography and full PFTs. Thank you very much for allowing me to participate in the care of Ms. Herring. Dictated by... Jose Hong M.D. BRIGIDO/jomar TD: 04/10/2017 04:01 JOB #: [id number] CONSULTATION REPORT Page 1 of 1 X Jose Hong MD X CONSULTATION REPORT
--- NOTE | ~2017-04-06 | FU ---
[facility] Nutrition Therapy DATE: 04/13/17 Patient: DELONTE HERRING Physician: PANTERA Address: [address] [facility] Room/Bed: [address], Zip: [place] [address] Admit Date: 04/06/17 Date of : 39 Height: Weight: 266 121 NUTRITION MONITORING/FOLLOW-UP: Reason: Nutrition follow up Anthropometrics: Ht: 5'1" Adm wt: 115 kg BMI: 47.9 IBW: 47.7 kg Wt 04/13: 121 kg Labs: Gluc 325 BUN 87 Creat 1.8 Ca++ 8.1 Alb 3.2 Accuchecks 321-325 GFR 26.3 Meds: Solu-medrol, lopressor, protonix, novolog, versed, levaquin (IV), MgSO4, glucotrol I&O's: 1152/1, last BM unknown Skin: no changes noted Edema: BLE/ BUE 1+ Generalized Estimated Nutrition Needs: 7628-2885 kcals (11-14 kcals/kg adm BW) 95-105 grams protein (2.0-2.0 grams/kg IBW) Assessment: Chart reviewed, events noted. Pt is intubated in the ICU, currently receiving Nepro @ 35 mL/hr + 30 mL Prostat BID. Pt is tolerating this enteral regimen per RN report. Per pump history the pt has received 53% enteral goal volume over the past 24 hrs, noting that enteral nutrition was started yesterday. Pt's electrolytes have improved, and she no longer requires a renal enteral formula. Per RN report, MD is changing enteral formula to Glucerna. Please see recommendations below. Dx: Inadequate protein-energy intake RT clinical condition, respiratory distress AEB pt is too SOB to eat- NO LONGER RELEVANT (NPO, ENTERAL NUTRITION) 1) Morbid obesity RT likely poor lifestyle AEB BMI 47.9- ACTIVE 2) Inadequate protein-energy intake RT enteral nutrition recently started AEB 53% enteral goal volume met over 24 hrs. Intervention: 1. Change enteral nutrition formula to Glucerna Monitoring, Evaluation and Goals: [facility] Nutrition Therapy DATE: 04/13/17 Patient: DELONTE HERRING Physician: UMMARU Address: [address] [place] [address] Room/Bed: [address], Zip: [place] [address] Admit Date: 04/06/17 Date of : [birth year] Height: Weight: 266 121 1. Enteral nutrition; initiate- MET 2. Skin; prevent breakdown- IN PROGRESS/ CONTINUE 3. Weight; promote gradual weight loss towards healthy BMI range- IN PROGRESS/ CONTINUE 4. Oral intake- NO LONGER RELEVANT (INTUBATED) NEW GOALS: 1. Enteral nutrition; tolerate formula change, provide >80% goal volume x 24 hrs 2. Improve labs; glucose, BUN, creat, GFR Recommendations: 1. Recommend changing enteral formula from Nepro to Glucerna 1.5, as the pt's electrolytes have improved. Start Glucerna 1.5 @ 20 mL/hr + 30 mL Prostat once daily. Increase by 10 mL q 4 hrs as tolerated to goal of 40 mL/hr + 30 mL Prostat once daily to provide: 1540 kcals/ 94 grams protein/ 729 mL free H20 2. Optimize the pt's insulin regimen noting elevated blood glucose levels. 3. If the pt is extubated, recommend diet advancemet per MANUFACTURING [employer]CH[employer]IC recommendations + HH/CC diet restrictions. Status: Pt is at moderate nutritional risk. RD will continue to follow hospital course. Respectfully, BASIL MCCOLLUM RD, LD Food and Nutritional Services [facility] cc: client file
--- NOTE | ~2017-04-06 | A ---
[facility] Nutrition Therapy DATE: 04/11/17 Patient: DELONTE HERRING Physician: PANTERA Address: [id number] [place] [address] Room/Bed: [address], Zip: [place] [address] Admit Date: 04/06/17 Date of : [birth year] Height: Weight: 247 112.3 NUTRITIONAL ASSESSMENT: REASON: ICU nutrition assessment 81 yo female admitted for SOA, CHF, PNA PMH: CAD, Afib, CHF, HLD, DM, HTN, hepatitis B, anemia, possible COPD, non-hodgkin's lymphoma, cholecystectomy Anthropometrics: Ht: 61" Wt: 115 kg BMI: 47.9 IBW: 47.7 kg Labs: Na+ 131 Cl- 94 Gluc 168 BUN 78 Creat 2.7 Ca++ 7.4 Phos 6.2 Accuchecks 148 GFR 16.1 Meds: Levaquin (IV), coumadin, solu-medrol, lopressor, novolog, lipitor, MgSO4, gluctotrol I/O & Bowel function: 3681/840, last BM unknown Skin Integrity: Vericose vein BLE Intact abrasion to coccyx Redness to buttocks Edema: BLE 1+ Estimated Nutrition Needs: 4459-3892 kcals (11-14 kcals/kg ABW) 95-105 grams protein (2.0-2.0 grams/kg IBW) Diet: Heart healthy/ consistent carbohydrate Assessment: Chart reviewed, events noted. 81 yo female admitted for CHF exacerbation. Pt was transfered to the ICU for respiratory distress. Pt is ordered a heart healthy/ consistent carbohydrate diet, and was eating well yesterday with good appetite per information obtained at rounds. Per RN report today, the pt is too SOA to eat and may be intubated. Renal is following the pt, and notes that stage 3 CKD is likely. Phos, BUN and creat are elevated. Pt is on continuous BiPAP and no family in room to provided nutritional/ weight history at this time. Please refer to recommendations below. Dx: Inadequate protein-energy intake RT clinical condition, respiratory distress AEB pt too SOB to eat per RN report. 2) Morbid obesity RT likely poor lifestyle habits AEB BMI 47.9. [facility] Nutrition Therapy DATE: 04/11/17 Patient: DELONTE HERRING Physician: PANTERA Address: [address] [facility] Room/Bed: [address], Zip: [place] [address] Admit Date: 04/06/17 Date of : 37 Height: Weight: 247 112.3 Intervention: 1. Continue PO diet if respiratory status improves 2. EN if the pt is unable to take PO Monitoring, Evaluation and Goals: 1. Oral intake; monitor 2. EN; initiate if unable to take nutrition PO 3. Skin; prevent breakdown 4. Weight; promote gradual weight loss towards healthy BMI range as appropriate Recommendations: 1. Continue heart healthy/ consistent carbohydrate diet if the pt's respiratory status improves. 2. If the pt is intubated or unable to take nutrition PO, consider obtaining enteral access and initiating enteral nutrition with Nepro @ 15 mL/hr + 30 mL Prostat BID. Increase by 10 mL q 6 hrs as tolerated to goal of 35 mL/hr + 30 mL Prostat BID to provide: 1712 kcals/ 98 grams protein/ 613 mL free H20 -Free H20 flushes per MD orders noting CHF, CKD Please note: If the pt the's electrolytes improve, another enteral formula may be more appropriate. RD will follow up to make appropriate recommendations Pt is at moderate nutritional risk. RD will follow up per protocol. Respectfully, BASIL MCCOLLUM RD, LD Food and Nutritional Services [facility] cc: client file
--- NOTE | ~2017-04-06 | HP ---
Unit #: [id number] #: [id number] Patient: DELONTE HERRING [id number] [address] [place], [place] [address] [id number] MR#: [id number] NAME: DELONTE HERRING ROOM: 572 Age: 81 Sex: F Admission Date: 04/06/2017 : 1935 Attending Physician: Osman Manzanares M.D. Primary Care Physician: Sofiya Flowers M.D. HISTORY AND PHYSICAL HISTORY OF PRESENT ILLNESS This is a 81-year-old white female known to Dr. Norman with a past medical history of coronary artery disease with history of angioplasty with details unavailable. The patient is known to have permanent atrial fibrillation and is on chronic anticoagulation with Coumadin. She has a past medical history of chronic diastolic congestive heart failure with an ejection fraction of 60%, hyperlipidemia, diabetes mellitus type 2, hypertension, hepatitis B, anemia, and non-Hodgkin lymphoma. She is a reformed smoker. She presented to the emergency department with complaints of shortness of breath. She was sent from her primary care provider's office. In addition to shortness of breath, she has also had bilateral lower extremity edema. There are no reports of dizziness, chest pain, palpitations or syncope. She denies PND or orthopnea. Reportedly, in her primary care office, her O2 saturation was low at 76%. She states that her symptoms have been present for the last several days. She has had some pain in her back which she states is chronic. She denies a fever or chills. She has had an occasional productive cough and headache. She admits to some weight gain. In the emergency department, her temperature was 97.7, pulse 126, respirations 20 and blood pressure 110/70 with an O2 saturation of 95% on 3 L. Initial labs revealed a critical potassium of 6.1. EKG revealed atrial fibrillation with a left axis deviation and poor R waves. Labs revealed stable renal function. BNP was 249. INR was 3.9. Magnesium was normal. Chest x-ray revealed possible trace right pleural effusion. She was given a dose of IV Lasix and metoprolol. She was admitted for congestive heart failure and hyperkalemia. PAST MEDICAL HISTORY 1. Coronary artery disease with history of angioplasty with details unavailable. 2. 2D echocardiogram December 2013 revealed an ejection fraction of 60%, mild mitral regurgitation, moderate tricuspid regurgitation, mild aortic stenosis. RVSP 40 to 50 mmHg suggesting at least moderate pulmonary hypertension. 3. Permanent atrial fibrillation, on chronic anticoagulation with Coumadin. 4. Chronic diastolic congestive heart failure. 5. Hypertension. 6. Hyperlipidemia. 7. Diabetes mellitus type 2. 8. Hepatitis B. Unit #: [id number] #: [id number] Patient: DELONTE HERRING 9. Anemia, vitamin B12 deficiency. 10. Oral varices. 11. Non-Hodgkin lymphoma. 12. Possible COPD. 13. Reformed tobacco abuse. PAST SURGICAL HISTORY 1. Cholecystectomy. 2. Tonsillectomy. 3. Hysterectomy. 4. Cataract extraction. HOME MEDICATIONS 1. Coumadin 5 mg p.o. daily. 2. Metformin 1000 mg p.o. b.i.d. 3. Januvia 50 mg p.o. daily. 4. Lasix 40 mg p.o. daily. 5. Lisinopril 10 mg p.o. daily. 6. Glipizide 10 mg p.o. daily. 7. Lipitor 10 mg p.o. daily. 8. Imdur 30 mg p.o. daily. 9. Hydrocodone 5/325 mg, one tablet p.o. q.6 hours p.r.n. 10. Symbicort, one inhalation daily. ALLERGIES Macrolide antibiotics, prednisone, simvastatin. SOCIAL HISTORY The patient lives in a private residence alone. Her approximately six years ago. She is a reformed smoker. There are no reports of illicit drug use. No active alcohol use. FAMILY HISTORY Unchanged. REVIEW OF SYSTEMS Ten point review of systems negative except for details noted above in HPI. PHYSICAL EXAMINATION VITAL SIGNS: Temperature 97.8, pulse 90, blood pressure 105/59. CONSTITUTIONAL: This is a 81-year-old white female in no acute distress. SKIN: Warm and dry. NECK: Supple. No jugular vein distention. No hepatojugular reflux. Normal carotid upstrokes. No carotid bruits auscultated. HEART: S1 and S2. Irregularly irregular, slightly tachycardic. No murmurs, rubs or gallops. LUNGS: Bilateral breath sounds have fine rales in the bases. Respirations even and unlabored. No rhonchi or wheezes. ABDOMEN: Obese, soft, nontender, nondistended. Positive bowel sounds auscultated x4 quadrants. No ascites noted. EXTREMITIES: Lower extremities have 1+ pitting edema. DP and PT pulses 2+. Capillary refill less than three seconds. DIAGNOSTIC STUDIES LABORATORY: White blood cell count 6.1, hemoglobin 10.7, hematocrit 34.7, platelets 208, sodium 125, potassium 5.0, chloride 91, CO2 29, BUN 38, creatinine 1.2, previous potassium 6.1 yesterday. Magnesium 2.4, AST 23, Unit #: [id number] #: [id number] Patient: DELONTE HERRING ALT 20, alkaline phos. 77, BNP 249, INR 3.9 yesterday. IMAGING: Chest x-ray reveals mild cardiomegaly with a possible trace right pleural effusion. CARDIOVASCULAR: Electrocardiogram reveals atrial fibrillation with a left axis deviation. Poor R wave progression. IMPRESSION 1. Acute on chronic diastolic congestive heart failure: Ejection fraction 60%. 2. Moderate to severe pulmonary hypertension. 3. Moderate tricuspid regurgitation with mild aortic stenosis. 4. Permanent atrial fibrillation with rapid ventricular response, now controlled ventricular response. 5. Mild over anticoagulation with no evidence of bleeding. 6. Chronic anemia. 7. Hyperkalemia, improved. 8. Hyponatremia. 9. Hypertension. 10. Hyperlipidemia. 11. Diabetes mellitus type 2. 12. Reformed tobacco abuse. PLAN 1. The patient presented to the hospital with complaints of shortness of breath and lower extremity edema. She was admitted for congestive heart failure. 2. Will continue IV diuretics as dose and initiate strict intake and output and fluid restriction. 3. The patient's potassium was elevated on arrival and she was treated with Kayexalate, calcium gluconate, insulin and D50. Her lisinopril was discontinued. Her potassium has improved. 4. There are no complaints of chest pain. Will check serial cardiac enzymes and EKG. 5. 2D echocardiogram will be ordered to reassess LV function and valves due to worsening failure. 6. The patient's INR is slightly high at 3.9. Will check a daily PT/INR and hold Coumadin until INR is less than 3. 7. Nephrology has been consulted for hyperkalemia as well as low sodium. Dictated by Carla Jones APRN for Elina Maki TD: 04/08/2017 08:44 JOB #: [id number] Unit #: [id number] #: [id number] Patient: DELONTE HERRING HISTORY AND PHYSICAL Page 1 of 1 X X HISTORY AND PHYSICAL
--- NOTE | ~2017-04-06 | CO ---
Unit #: [id number] #: [id number] Patient: DELONTE HERRING [id number] [address] [address] [id number] I MR#: [id number] NAME: DELONTE HERRING. ROOM: [facility] Age: 81 Sex: F Admission Date: 04/06/2017 : 1935 Attending Physician: Hima Norman M.D. Primary Care Physician: Sofiya Flowers M.D. Consultation Date: 04/07/2017 CONSULTATION REPORT REASON FOR CONSULTATION Acute kidney injury and hyperkalemia. HISTORY OF PRESENT ILLNESS This 81-year-old white female with coronary artery disease, hypertension, atrial fibrillation, and pulmonary hypertension, came to the emergency room for shortness of breath. Her primary doctor sent her in. In the emergency room, she is found to have a potassium of 6.1 and a BUN and creatinine of 38 and 1.2. Her DEBRA inhibitor was discontinued. She was given 40 mg of Lasix, Kayexalate, insulin, and D50 as well as calcium gluconate. Her potassium responded quickly. She was also found to have some congestive heart failure on x-ray. PAST MEDICAL HISTORY 1. Type 2 diabetes. 2. Coronary artery disease. 3. Moderate pulmonary hypertension. 4. Atrial fibrillation, on chronic anticoagulation with Coumadin. 5. Diastolic dysfunction. 6. Hypertension. 7. Non-Hodgkin lymphoma. 8. Hyperlipidemia. PAST SURGICAL HISTORY Cholecystectomy, tonsillectomy, and hysterectomy. MEDICATIONS Home medicines include Coumadin, metformin, Januvia, Lasix, lisinopril, glipizide, Lipitor, Imdur, hydrocodone, and Symbicort. Current medicines include NovoLog, hydralazine, Lipitor, magnesium, Lopressor, Imdur, Januvia, furosemide, and Glucotrol. ALLERGIES To prednisone, simvastatin, and macrolides. SOCIAL HISTORY She is a and lives alone. FAMILY HISTORY Noncontributory. REVIEW OF SYSTEMS She is currently eating while she is talking to me. She says she is less Unit #: [id number] #: [id number] Patient: DELONTE HERRING short of breath. She does have some weakness. No nausea, vomiting, or diarrhea. She does complain of some exertional dyspnea and some mild pedal edema. No urinary symptoms. Other 13 systems reviewed, unless noted are negative. PHYSICAL EXAMINATION VITAL SIGNS: Her temperature is 97.8, heart rate 90, blood pressure is 105/59. HEENT: Extraocular muscles are intact. No eye drainage or icterus. NECK: No JVD. CHEST: Shows bibasilar crackles. CARDIAC: S1 and S2. Irregularly irregular. ABDOMEN: Soft, nontender, and nondistended. EXTREMITIES: Shows 1+ pitting edema. DIAGNOSTIC STUDIES LABORATORY RESULTS: Shows sodium 125, potassium 5, chloride 91, bicarbonate 29, BUN 38, and creatinine 1.2. Hemoglobin 10.7. ASSESSMENT 1. Acute kidney injury with hyperkalemia, likely due to congestive heart failure and her DEBRA inhibitor. Her DEBRA inhibitor has been stopped and she is now being diuresed for her congestive heart failure. 2. Acute on chronic congestive heart failure. Her ejection fraction is 60%. She has diastolic heart failure. I agree with her IV Lasix 40 mg q.12 hours. 3. Fqikvwyv-wf-htzuor pulmonary hypertension. 4. Atrial fibrillation, on warfarin. 5. Hyperkalemia. This quickly improved with measures in the emergency room and her DEBRA inhibitor has been stopped. Initial hyponatremia, this is likely due to hypervolemia and is improving. Thank you very much for allowing me to see Ms. Conrad in consultation. We will follow closely with you. Dictated by... Leonora Rosario M.D. ASPEN/jomar TD: 04/09/2017 15:04 JOB #: [id number] CONSULTATION REPORT Page 1 of 1 X Leonora Rosario MD X CONSULTATION REPORT
--- NOTE | ~2017-04-06 | CR72 ---
[facility] A Service of [facility] & [facility] RADIOLOGY TEXT RESULTS PATIENT: DELONTE HERRING LOCATION: [place] [id number] : 37 UNIT #: [id number] AGE: [address]: Hima Norman MD SEX: F ORDER DR: [id number] [facility] [address] [facility] [place], [place] [address] [id number] I MR#: [id number] Acc #: [id number] NAME: DELONTE HERRING : 1935 SEX: F STUDY DATE/TIME: 04/11/2017 15:22 UNIT: [facility] ROOM: [facility] STUDY DESCRIPTION: CR Chest Single View Portable Attending Physician: Hima Norman M.D. Ordering Physician: Staff Doctor Not On Primary Care Physician: Sofiya Flowers M.D. MEDICAL IMAGING REPORT This report is preliminary unless electronic signature is present EXAM Portable chest. INDICATION Central line placement. COMPARISON Earlier today. FINDINGS Interval placement of right IJ central venous catheter with tip projecting over the cavoatrial junction. There is no evidence for pneumothorax. ET tube is stable. Bilateral pulmonary infiltrates are also stable. There is probably small bilateral pleural effusions. IMPRESSION Right IJ central venous catheter tip projects over the cavoatrial junction. No evidence for pneumothorax. Dictated by... Joshua Garcia M.D. THIS IS AN ELECTRONICALLY VERIFIED REPORT Joshua Garcia M.D. at 04/12/2017 7:02 AM TANI/thelma TD: 04/11/2017 16:12 JOB #: [id number] MEDICAL IMAGING REPORT Page 1 of 1 COPY
--- NOTE | ~2017-04-06 | BMI ---
[facility] Nutrition Therapy DATE: 04/07/17 Patient: DELONTE HERRING Physician: FLO Address: [address] [place] [address] Room/Bed: [address] [place] [address], Zip: [place] [address] Admit Date: 04/06/17 Date of : 37 Height: Weight: 247 112.03 HIGH BMI NOTE: DX: PATIENT ADMITTED FOR CHF ANTHROPOMETRICS: HT: 61", WT: 247#, BMI: 46.7 DIET: HEALTHY HEART RECOMMENDATIONS: CONTINUE HEALTHY HEART DIET TO PROMOTE A STEADY WEIGHT LOSS TOWARDS A HEALTHY BMI OF 19-25 Respectfully, ANDRE MATTHEWS, IVETTE, LD [facility] cc: client file
--- NOTE | ~2017-04-06 | CR72 ---
[facility] A Service of [facility] & [facility] RADIOLOGY TEXT RESULTS PATIENT: DELONTE HERRING LOCATION: [place] [id number] : 37 UNIT #: [id number] AGE: [address]: Hima Norman MD SEX: F ORDER DR: [id number] [facility] [address] [facility] [address] [place], [place] [address] [id number] I MR#: [id number] Acc #: [id number] NAME: DELONTE HERRING. : 1935 SEX: F STUDY DATE/TIME: 04/10/2017 5:14 UNIT: [facility] ROOM: [facility] STUDY DESCRIPTION: CR Chest Single View Portable Attending Physician: Hima Norman M.D. Ordering Physician: Jose Hong M.D. Primary Care Physician: Sofiya Flowers M.D. MEDICAL IMAGING REPORT This report is preliminary unless electronic signature is present EXAM Portable chest INDICTIONS Cough for 5 days. DATE: 04/10/17 COMPARISON: 04/09/17 FINDINGS This portable view of the chest shows mild diffuse interstitial prominence with small right greater than left effusions and cardiomegaly. There has been no change from prior study. Dictated by... Geoff Aceves M.D. THIS IS AN ELECTRONICALLY VERIFIED REPORT Geoff Aceves M.D. at 04/10/2017 1:22 PM BIRGIT/rhiannon TD: 04/10/2017 10:44 JOB #: [id number] MEDICAL IMAGING REPORT Page 1 of 1 COPY
--- NOTE | ~2017-04-06 | FU ---
[facility] Nutrition Therapy DATE: 04/17/17 Patient: DELONTE HERRING Physician: PANTERA Address: [address] [facility] Room/Bed: [address] [place] [address], Zip: [place] [address] Admit Date: 04/06/17 Date of : 37 Height: Weight: 246 112 NUTRITION MONITORING/FOLLOW-UP: Reason: Nutrition follow-up/diet education Admitting Dx: 81 y/o female admitted with CHF, PNA, KELL Anthropometrics: Ht: 61", admission wt: 115 kg, current wt: 112 kg, BMI: 47.9 (stage III obese; based on admission weight) Labs: K+ 5.4 (1st high reading since admission), glucose 229, BUN 83, Creat 1.8, GFR 26.3, glucose POC 04/16 120-437, Na/Mg/Phos WNL Meds: Solu-medrol, PPI, Lopressor, Novolog (low SSI), IV Levaquin, MgSO4, Januvia, Glucotrol GI: Last BM 04/14 (constipation noted) Skin: No new issues Edema: BUE/BLE trace, generalized Assessment: Chart reviewed, events noted. RN/family requested CHF diet education once pt extubated. On the patient was on a full liquid diet which was advanced to consistent carb + fluid restriction. As of today she is on a low potassium diet (+ KELL; one high potassium reading today, otherwise K+ WNL this admission), no longer on a fluid restriction. Morbid obesity noted. She is on 8L oxymizer, plan is for rehab. RD provided both verbal and written diet education on heart failure nutrition therapy with sodium-free flavoring tips. Materials were reviewed with the patient who showed moderate understanding and motivation. Barriers include advanced age, big lifestyle change, patient unable to grocery shop for herself. States her son does the grocery shopping but the patient herself cooks and admits to adding excessive salt to meals after they've been cooked. RD encouraged patient to share the education materials with her son, contact info left. RD stressed importance of avoiding excessive fluid intake while maintaining hydration, restricting sodium and daily weights. Patient agreeable and appreciative, however future compliance is questionable and the patient could benefit from outpatient education/further reinforcement while in rehab. She states she is eating well ~75%. See nutrition dx, goals and recs below. Dx: 1) Morbid obesity r/t likely poor lifestyle habits AEB BMI 47.9 - ACTIVE (pt down 3kg since admission; likely fluid loss) 2) Inadequate protein energy intake r/t enteral nutrition recently started AEB 53% enteral [facility] Nutrition Therapy DATE: 04/17/17 Patient: DELONTE HERRING Physician: [facility] Address: [address] [place] [address] Room/Bed: [address] [place] [address], Zip: [place] [address] Admit Date: 04/06/17 Date of : 37 Height: Weight: 246 112 goal volume met over 24 hours - NO LONGER RELEVANT (pt on PO diet) New dx: Food and nutrition related knowledge deficit r/t no prior diet education AEB need for CHF diet education, moderate understanding of education provided, pt needs reinforcement. Intervention: CHF/low sodium diet education, fluids per MD, daily weights, 2g sodium diet Monitoring, Evaluation and Goals: 1. Tolerate EN formula change, provide > 80% goal volume x 24 hours - NO LONGER RELEVANT 2. Improve labs (glucose, BUN, creat, GFR) - NOT MET, IN PROGRESS New goals: 1. Understanding of CHF/low sodium diet education and fluid needs. 2. Gradual weight loss towards a healthy BMI range. Recommendations: 1. Suggest changing diet to 2g sodium/60g carb. MD please education on appropriate fluid intake. 2. Daily weights. 3. RD provided both verbal and written CHF/low sodium diet education with contact info. Please encourage patient compliance upon discharge. Emphasized following < 2g sodium diet, avoiding excessive fluid intake and daily weights. Diet education reinforcement needed. 4. Optimize the patient's insulin regimen noting continued hyperglycemia (of note, the patient is on steroids). 5. Please consult with any further nutritional needs. Status: Mild nutrition risk Respectfully, Kathya Elliott, RD, LD [facility] Nutrition Therapy DATE: 04/17/17 Patient: DELONTE HERRING Physician: [facility] Address: [address] [place] [address] Room/Bed: [address] [place] [address], Zip: [place] [address] Admit Date: 04/06/17 Date of : 37 Height: Weight: 246 112 [facility] cc: client file
--- NOTE | ~2017-04-06 | CR72 ---
[facility] A Service of [facility] & [facility] RADIOLOGY TEXT RESULTS PATIENT: DELONTE HERRING LOCATION: [facility] 568- : 37 UNIT #: [id number] AGE: [address]: Hima Norman MD SEX: F ORDER DR: [id number] [facility] [address] [place], [place] [address] [id number] I MR#: [id number] Acc #: [id number] NAME: DELONTE HERRING. : 1935 SEX: F STUDY DATE/TIME: 04/11/2017 5:56 UNIT: [facility] ROOM: [facility] STUDY DESCRIPTION: CR Chest Single View Portable Attending Physician: Hima Norman M.D. Ordering Physician: Jose Hong M.D. Primary Care Physician: Sofiya Flowers M.D. MEDICAL IMAGING REPORT This report is preliminary unless electronic signature is present EXAM Portable AP view of the chest COMPARISON April 10, 2017, April 09, 2017. INDICATIONS 81-year-old female with dyspnea and respiratory failure for 5 days. Right lower lobe infiltrate. History of non-Hodgkin's lymphoma, hypertension and COPD. FINDINGS and IMPRESSION There appears to be stable small to moderate right pleural effusion with increasing small to moderate left pleural effusion. Underlying left basilar atelectasis or pneumonia and/or pulmonary edema cannot be excluded. There is cephalization and indistinctness of pulmonary vasculature, which appears stable and would seem to favor pulmonary edema. Clinical correlation recommended. There does appear to be cardiomegaly which appears grossly stable but this could be accentuated by portable technique. No pneumothorax. Dictated by... Paco Morse M.D. THIS IS AN ELECTRONICALLY VERIFIED REPORT Paco Morse M.D. at 04/17/2017 7:20 AM GOLDEN/rhiannon TD: 04/11/2017 07:30 JOB #: [id number] MEDICAL IMAGING REPORT Page 1 of 1 COPY
--- NOTE | ~2017-04-06 | CR63 ---
[facility] A Service of [facility] & [facility] RADIOLOGY TEXT RESULTS PATIENT: DELONTE HERRING LOCATION: [facility] 568-01 : 37 UNIT #: [id number] AGE: [address]: Hima Norman MD SEX: F ORDER DR: [id number] [facility] [address] [facility]. [place], [place] [address] [id number] I MR#: [id number] Acc #: [id number] NAME: DELONTE HERRING : 1935 SEX: F STUDY DATE/TIME: 04/19/2017 11:16 UNIT: [facility] ROOM: [facility] STUDY DESCRIPTION: CR Chest 2 View Attending Physician: Hima Norman M.D. Ordering Physician: Jose Hong M.D. Primary Care Physician: Sofiya Flowers M.D. MEDICAL IMAGING REPORT This report is preliminary unless electronic signature is present EXAM PA and lateral chest INDICATIONS Shortness of breath seconds since April 13. COMPARISON STUDIES 04/17/2017. FINDINGS Small bilateral pleural effusions with bibasilar atelectasis or consolidation. Heart size stable. No new infiltrates. Stable central venous catheter. IMPRESSION No significant change in the appearance of the chest. Dictated by... Joshua Garcia M.D. THIS IS AN ELECTRONICALLY VERIFIED REPORT Joshua Garcia M.D. at 04/20/2017 7:17 AM ARS/jerry TD: 04/19/2017 17:08 JOB #: [id number] MEDICAL IMAGING REPORT Page 1 of 1 COPY
--- NOTE | ~2017-04-06 | CR72 ---
[facility] A Service of [facility] RADIOLOGY TEXT RESULTS PATIENT: DELONTE HERRING LOCATION: [facility] : 37 UNIT #: [id number] AGE: [address]: Hima Norman MD SEX: F ORDER DR: [id number] [facility] [address] [facility] [place], [place] [address] [id number] I MR#: [id number] Acc #: [id number] NAME: DELONTE HERRING. : 1935 SEX: F STUDY DATE/TIME: 04/16/2017 5:20 UNIT: [facility] ROOM: [facility] STUDY DESCRIPTION: CR Chest Single View Portable Attending Physician: Hima Norman M.D. Ordering Physician: Michele Nagel M.D. Primary Care Physician: Sofiya Flowers M.D. MEDICAL IMAGING REPORT This report is preliminary unless electronic signature is present EXAM Portable chest Date: 04/16/2017 AT 05:20. HISTORY Shortness of breath with respiratory failure. Symptoms began approximately 10 days ago. Non-Hodgkin's lymphoma. Additional history of coronary disease, diabetes, hepatitis B, COPD, hypertension. COMPARISON AP portable chest 04/15/2017. FINDINGS There is persistent asymmetric elevation left hemidiaphragm with left basilar atelectasis/infiltrate and small left pleural effusion. Fine interstitial thickening is present throughout both lungs, may represent a point of mild interstitial edema. ET tube has been removed. Right IJ central line remains in the tli-ra-biesj SVC level. No visible pneumothorax. The Dobbhoff tube has been removed. IMPRESSION 1. Fine interstitial opacities in both lungs favored to represent changes of interstitial edema. Findings are not thought to be significantly changed compared to 04/15/2017, but do appear slightly improved when compared to the more remote chest radiograph from 04/14/2017. 2. Left basilar atelectasis/infiltrate and small left pleural effusion appear stable. 3. Dobbhoff tube and ET tube and removed. Dictated by... [facility] A Service of [facility] & [facility] RADIOLOGY TEXT RESULTS PATIENT: DELONTE HERRING LOCATION: [facility] 568-01 : 37 UNIT #: [id number] AGE: [address]: Hima Norman MD SEX: F ORDER DR: Kary Stallings M.D. THIS IS AN ELECTRONICALLY VERIFIED REPORT Kary Stallings M.D. at 04/17/2017 2:00 PM ORLY/kasandra TD: 04/16/2017 11:07 JOB #: [id number] MEDICAL IMAGING REPORT Page 1 of 1 COPY
--- NOTE | ~2017-04-06 | CR72 ---
[facility] A Service of [facility] & [facility] RADIOLOGY TEXT RESULTS PATIENT: DELONTE HERRING LOCATION: [facility] 568- : 37 UNIT #: [id number] AGE: [address]: Hima Norman MD SEX: F ORDER DR: [id number] [facility] [address] [place], [place] [address] [id number] I MR#: [id number] Acc #: [id number] NAME: DELONTE HERRING. : 1935 SEX: F STUDY DATE/TIME: 04/14/2017 5:57 UNIT: [facility] ROOM: [facility] STUDY DESCRIPTION: CR Chest Single View Portable Attending Physician: Hima Norman M.D. Ordering Physician: Jose Hong M.D. Primary Care Physician: Sofiya Flowers M.D. MEDICAL IMAGING REPORT This report is preliminary unless electronic signature is present EXAM Portable AP view of the chest. COMPARISON April 13, 2017; April 12, 2017; April 11, 2017. INDICATIONS 81-year-old female with dyspnea for 8 days. Respiratory failure requiring ventilatory support. History of hypertension and non-Hodgkin's lymphoma. FINDINGS AND IMPRESSION Chest appears stable from yesterday. Endotracheal tube is adequately positioned. Feeding tube not traced below the level of the stomach where it passes off the bottom aspect of the image. Right internal jugular catheter tip terminates in the lower SVC. No evidence of pneumothorax. There is a stable small left pleural effusion associated with left basilar atelectasis versus possibly pneumonia. There is diffuse pulmonary vascular indistinctness and noncardiogenic pulmonary edema cannot be excluded. Normal heart size. Dictated by... Paco Morse M.D. THIS IS AN ELECTRONICALLY VERIFIED REPORT Paco Morse M.D. at 04/19/2017 7:37 PM GOLDEN/eyal TD: 04/14/2017 10:13 JOB #: [id number] MEDICAL IMAGING REPORT Page 1 of 1 COPY
--- NOTE | ~2017-04-06 | US77 ---
[facility] A Service of [facility] & [facility] RADIOLOGY TEXT RESULTS PATIENT: DELONTE HERRING [address] 37 UNIT #: [id number] AGE: [address]: Hima Norman MD SEX: F ORDER DR: [id number] [facility] [address] [place], [place] [address] [id number] I MR#: [id number] Acc #: [id number] NAME: DELONTE HERRING. : 1935 SEX: F STUDY DATE/TIME: 04/09/2017 8:36 [id number] ROOM: [facility] STUDY DESCRIPTION: US Kidney Bilateral Complete Attending Physician: Hima Norman M.D. Ordering Physician: Osman Manzanares M.D. Primary Care Physician: Sofiya Flowers M.D. MEDICAL IMAGING REPORT This report is preliminary unless electronic signature is present EXAM Ultrasound kidney, bilateral, complete. HISTORY Acute kidney insufficiency. EGFR 14.8. BUN 59. Creatinine 2.9. TECHNIQUE Real-time ultrasonography of the bilateral kidneys performed. FINDINGS The visualized portions of liver show no acute abnormality. The right kidney measures 8.79 cm in greatest length. There is no hydronephrosis or nephrolithiasis. No cystic or solid mass lesion is seen. No perinephric fluid collection. There appears to be mild generalized cortical thinning. The urinary bladder contains a Gilbert catheter and is decompressed. The left kidney measures about 7.39 cm in greatest length. No hydronephrosis or nephrolithiasis. No cystic or solid mass lesion. No perinephric fluid collection. No definite renal cortical thinning of left kidney. IMPRESSION 1. No hydronephrosis or nephrolithiasis. No cystic or solid renal lesions are suggested and there are no perinephric fluid collections. There appears to be mild cortical thinning of the right kidney. 2. Urinary bladder decompressed by a Gilbert catheter. Dictated by... Pramod Moreno M.D. THIS IS AN ELECTRONICALLY VERIFIED REPORT Pramod Moreno M.D. at 04/10/2017 5:16 PM JSK/misaelw STS. [facility] A Service of [facility] & [facility] RADIOLOGY TEXT RESULTS PATIENT: DELONTE HERRING LOCATION: [address] : 37 UNIT #: [id number] AGE: [address]: Hima Norman MD SEX: F ORDER DR: TD: 04/09/2017 13:37 JOB #: [id number] MEDICAL IMAGING REPORT Page 1 of 1 COPY
[~2017-04-06 15:19] MED LIST changes: +ADVANCED EYE RE OU; +IMDUR-ER30 M1 PO; +LORTAB 5-325 M1 EACH PO; +VIT B-12 PO; +ZESTRIL10 M1 PO
[2017-04-06 16:23] LABS: BASOPHIL% 0.4 % (0-2.5); EOSINOPHIL% 0.4 % (0.0-7.0); HEMATOCRIT 34.7 % (35.0-45.0); HEMOGLOBIN 10.7 gm/dL (12.0-16.0); LYMPHOCYTE# 0.6 X10e3 (1.0-3.5); MEAN CELL VOLUME 89.4 FL (83-96); MEAN CORPUSCULAR HEMOGLOBIN 27.6 PG (28-34); MEAN CORPUSCULAR HGB CONC 30.8 g/dL (30-36); MEAN PLATELET VOLUME 6.6 FL (6.5-11.5); MONOCYTE# 0.6 X10e3 (0-1.0); MONOCYTE% 9.6 % (3.0-12.0); NEUTROPHIL% 80.6 % (40-75); PLATELET COUNT 208 X10e3 (140-420); RED BLOOD COUNT 3.88 X10e (3.90-5.30); RED CELL DISTRIBUTION WIDTH 16.7 % (11.0-15.5); WHITE BLOOD COUNT 6.1 X10e3 (4.0-10.5)
[2017-04-06 16:24] LABS: POC - TROPONIN <0.05 ng/mL (<=0.05)
[2017-04-06 16:41] LABS: INR 3.9
[2017-04-06 16:46] LABS: DIFF IND NO
[2017-04-06 16:57] LABS: ALBUMIN SERUM 4.3 g/dL (3.5-5.0); BILIRUBIN, DIRECT 0.1 mg/dL (0.0-0.2); BILIRUBIN,INDIRECT 0.6 mg/dL (0.0-0.9); BILIRUBIN,TOTAL 0.7 mg/dL (0.2-2.0); BUN/CREATININE RATIO 32.3; CALCIUM SERUM 8.2 mg/dL (8.4-10.2); CREATININE SERUM 1.3 mg/dL (0.6-1.4); PROTEIN TOTAL SERUM 7.6 g/dL (6.0-8.3)
[2017-04-06 17:01] LABS: POTASSIUM 6.1 mmol/L (3.5-5.1)
[2017-04-06 18:04] LABS: POC - CKMB 2.9 ng/mL (0.0-7.9); POC - TROPONIN <0.05 ng/mL (<=0.05)
[2017-04-06] MEDS ORDERED: COUMADIN5 MG PO (18:44)
[2017-04-06] MEDS ORDERED: JANUVIA50 MG PO (18:45)
[2017-04-06] MEDS ORDERED: GLUCOTROL10 MG PO (18:45)
[2017-04-06] MEDS ORDERED: LISINOPRIL10 MG PO (18:45)
[2017-04-06] MEDS ORDERED: METFORMIN PO (18:45)
[2017-04-06] MEDS ORDERED: LASIX PO (18:45)
[2017-04-06] MEDS ORDERED: LIPITOR PO (18:46)
[2017-04-06] MEDS ORDERED: IMDUR-ER30 M1 PO (18:46)
[2017-04-06] MEDS ORDERED: HYDROCODON-ACE1 EAC7 PO (18:47)
[2017-04-06] MEDS ORDERED: SYMBICORT INH (18:51)
[2017-04-06 19:29] LABS: BUN/CREATININE RATIO 34.16; CALCIUM SERUM 8.3 mg/dL (8.4-10.2); CREATININE SERUM 1.2 mg/dL (0.6-1.4); MAGNESIUM 2.4 mg/dL (1.6-3.0)
[2017-04-06 19:39] LABS: POTASSIUM 6.6 mmol/L (3.5-5.1)
[2017-04-07 00:21] LABS: BUN/CREATININE RATIO 31.66; CREATININE SERUM 1.2 mg/dL (0.6-1.4)
[2017-04-07 13:31] LABS: INR 3.6; PROTHROMBIN TIME (PATIENT) 40.1 SECONDS (9.6-11.5)
[2017-04-07 13:33] LABS: CALCIUM SERUM 7.8 mg/dL (8.4-10.2); CREATININE SERUM 1.2 mg/dL (0.6-1.4); POTASSIUM 4.7 mmol/L (3.5-5.1)
[2017-04-07 13:58] LABS: %MB 4.6 % (0.0-4.0); MB 4.1 ng/ml
[2017-04-07 17:47] LABS: %MB 4.6 % (0.0-4.0); MB 3.6 ng/ml
[2017-04-07 18:27] LABS: BASOPHIL% 0.4 % (0-2.5); EOSINOPHIL% 0.8 % (0.0-7.0); HEMATOCRIT 32.8 % (35.0-45.0); LYMPHOCYTE# 0.6 X10e3 (1.0-3.5); LYMPHOCYTE% 10.1 % (17.0-45.0); MEAN CELL VOLUME 89.3 FL (83-96); MEAN CORPUSCULAR HEMOGLOBIN 27.4 PG (28-34); MEAN CORPUSCULAR HGB CONC 30.7 g/dL (30-36); MEAN PLATELET VOLUME 6.6 FL (6.5-11.5); MONOCYTE# 1.1 X10e3 (0-1.0); MONOCYTE% 19.3 % (3.0-12.0); NEUTROPHIL# 4.1 X10e3 (1.5-7.1); NEUTROPHIL% 69.4 % (40-75); PLATELET COUNT 185 X10e3 (140-420); RED BLOOD COUNT 3.67 X10e (3.90-5.30); RED CELL DISTRIBUTION WIDTH 16.6 % (11.0-15.5); WHITE BLOOD COUNT 5.9 X10e3 (4.0-10.5)
[2017-04-07 18:29] LABS: DIFF IND NO
[2017-04-07 18:45] LABS: CALCIUM SERUM 7.8 mg/dL (8.4-10.2); CREATININE SERUM 1.3 mg/dL (0.6-1.4); MAGNESIUM 2.1 mg/dL (1.6-3.0); POTASSIUM 4.7 mmol/L (3.5-5.1)
[2017-04-08 07:12] LABS: BUN/CREATININE RATIO 26.87; CALCIUM SERUM 7.8 mg/dL (8.4-10.2); CREATININE SERUM 1.6 mg/dL (0.6-1.4); GLOM FILT RATE Estimated 30.3 mL/min (>60); POTASSIUM 4.6 mmol/L (3.5-5.1)
[2017-04-09 06:24] LABS: INR 2.1; PROTHROMBIN TIME (PATIENT) 22.7 SECONDS (9.6-11.5)
[2017-04-09 06:41] LABS: URINE APPEARANCE TURBID; URINE BLOOD 2+ (NEG); URINE COLOR DK YELLOW; URINE GLUCOSE NEG (NEG); URINE KETONE TRACE (NEG); URINE LEUKOCYTE ESTERASE 3+ (NEG); URINE NITRATE NEG (NEG); URINE PROTEIN 2+ (NEG); URINE SPECIFIC GRAVITY 1.019 (1.003-1.035)
[2017-04-09 06:43] LABS: BUN/CREATININE RATIO 20.34; CALCIUM SERUM 7.8 mg/dL (8.4-10.2); CREATININE SERUM 2.9 mg/dL (0.6-1.4); GLOM FILT RATE Estimated 14.8 mL/min (>60); POTASSIUM 4.2 mmol/L (3.5-5.1)
[2017-04-09 06:44] LABS: CULTURE INDICATED? YES; URBCS1 AUWI 25-50 /[HPF] (0-2); URINE BACTERIA AUWI 2+ (NEGATIVE); URINE SQUAMOUS EPITHELIAL CELL OCC /[HPF]; UWBCS1 AUWI INNUM (0-5)
[2017-04-09 06:49] LABS: URINE BILIRUBIN NEG (NEG)
[2017-04-09 08:27] LABS: ARTERIAL BLOOD GAS pH 7.186 (7.350-7.450)
[2017-04-09 08:28] LABS: ARTERIAL BLOOD GAS ALLEN TEST N; ARTERIAL BLOOD GAS ART SITE RIGHT RADIAL; ARTERIAL BLOOD GAS CARBOXY HB 1.4 %sat (0.0-9.0); ARTERIAL BLOOD GAS DELIVERY OXYMIZER; ARTERIAL BLOOD GAS HCO3 32.7 mmol/L; ARTERIAL BLOOD GAS MET HB 0.6 %sat (0.0-2.0); ARTERIAL BLOOD GAS PCO2 86.5 mmHg (35.0-45.0); ARTERIAL BLOOD GAS PO2 75.8 mmHg (80.0-100); ARTERIAL DRAW? YES
[2017-04-09 14:00] LABS: CREATININE,RANDOM URINE 254 mg/dL; TOTAL PROTEIN,RANDOM URINE 90 mg/dl (<10)
[2017-04-10 04:04] LABS: HEMATOCRIT 30.4 % (35.0-45.0); HEMOGLOBIN 9.4 gm/dL (12.0-16.0); MEAN CORPUSCULAR HEMOGLOBIN 27.3 PG (28-34); RED BLOOD COUNT 3.46 X10e (3.90-5.30); RED CELL DISTRIBUTION WIDTH 16.1 % (11.0-15.5)
[2017-04-10 04:35] LABS: ALBUMIN SERUM 3.3 g/dL (3.5-5.0); BILIRUBIN,TOTAL 0.7 mg/dL (0.2-2.0); BUN/CREATININE RATIO 22.41; CALCIUM SERUM 7.3 mg/dL (8.4-10.2); CREATININE SERUM 2.9 mg/dL (0.6-1.4); GLOM FILT RATE Estimated 14.8 mL/min (>60); MAGNESIUM 2.1 mg/dL (1.6-3.0); PHOSPHOROUS 6.2 mg/dL (2.5-4.6); POTASSIUM 4.5 mmol/L (3.5-5.1)
[2017-04-10 04:49] LABS: ARTERIAL BLOOD GAS PCO2 61.1 mmHg (35.0-45.0); ARTERIAL BLOOD GAS pH 7.287 (7.350-7.450)
[2017-04-10 04:50] LABS: ARTERIAL BLD GAS O2 SATURATION 95.6 % (90.0-100.0); ARTERIAL BLOOD GAS ALLEN TEST NORMAL; ARTERIAL BLOOD GAS ART SITE RIGHT RADIAL; ARTERIAL BLOOD GAS CARBOXY HB 1.5 %sat (0.0-9.0); ARTERIAL BLOOD GAS DELIVERY BIPAP 16/8; ARTERIAL BLOOD GAS HCO3 29.1 mmol/L; ARTERIAL BLOOD GAS MET HB 1.1 %sat (0.0-2.0); ARTERIAL DRAW? YES
[2017-04-10 09:57] LABS: TMH HEPATITIS B SURFACE AG -JH Negative (Negative); TMH HEPATITIS C AB - JH Negative (Negative)
[2017-04-11 04:12] LABS: ARTERIAL BLD GAS O2 SATURATION 97.3 % (90.0-100.0); ARTERIAL BLOOD GAS ALLEN TEST NORMAL; ARTERIAL BLOOD GAS ART SITE RIGHT RADIAL; ARTERIAL BLOOD GAS CARBOXY HB 1.3 %sat (0.0-9.0); ARTERIAL BLOOD GAS HCO3 29.3 mmol/L; ARTERIAL BLOOD GAS MET HB 0.9 %sat (0.0-2.0); ARTERIAL BLOOD GAS PCO2 82.9 mmHg (35.0-45.0); ARTERIAL BLOOD GAS pH 7.156 (7.350-7.450); ARTERIAL DRAW? YES
[2017-04-11 04:13] LABS: ARTERIAL BLOOD GAS DELIVERY OXYMIZER
[2017-04-11 04:36] LABS: HEMATOCRIT 35.2 % (35.0-45.0); HEMOGLOBIN 10.9 gm/dL (12.0-16.0); MEAN CELL VOLUME 89.3 FL (83-96); MEAN CORPUSCULAR HEMOGLOBIN 27.6 PG (28-34); MEAN CORPUSCULAR HGB CONC 30.9 g/dL (30-36); MEAN PLATELET VOLUME 7.2 FL (6.5-11.5); RED BLOOD COUNT 3.95 X10e (3.90-5.30); RED CELL DISTRIBUTION WIDTH 16.4 % (11.0-15.5)
[2017-04-11 04:37] LABS: WHITE BLOOD COUNT 7.6 X10e3 (4.0-10.5)
[2017-04-11 04:40] LABS: INR 1.9; PROTHROMBIN TIME (PATIENT) 20.5 SECONDS (9.6-11.5)
[2017-04-11 05:02] LABS: BUN/CREATININE RATIO 28.88; CALCIUM SERUM 7.4 mg/dL (8.4-10.2); CREATININE SERUM 2.7 mg/dL (0.6-1.4); GLOM FILT RATE Estimated 16.1 mL/min (>60); MAGNESIUM 2.4 mg/dL (1.6-3.0); POTASSIUM 4.3 mmol/L (3.5-5.1)
[2017-04-11 07:52] LABS: COMPLEMENT C3 128 mg/dL (90-180); COMPLEMENT C4 30 mg/dL (16-47)
[2017-04-11 12:16] LABS: ARTERIAL BLOOD GAS PCO2 74.2 mmHg (35.0-45.0); ARTERIAL BLOOD GAS pH 7.193 (7.350-7.450)
[2017-04-11 12:17] LABS: ARTERIAL BLOOD GAS ALLEN TEST NORMAL; ARTERIAL BLOOD GAS ART SITE RIGHT RADIAL; ARTERIAL BLOOD GAS CARBOXY HB 1.2 %sat (0.0-9.0); ARTERIAL BLOOD GAS DELIVERY BIPAP; ARTERIAL BLOOD GAS HCO3 28.5 mmol/L; ARTERIAL BLOOD GAS MET HB 0.7 %sat (0.0-2.0); ARTERIAL BLOOD GAS PO2 93.5 mmHg (80.0-100); ARTERIAL DRAW? YES
[2017-04-11 15:50] LABS: ARTERIAL BLOOD GAS ALLEN TEST N; ARTERIAL BLOOD GAS ART SITE LEFT RADIAL; ARTERIAL BLOOD GAS DELIVERY VENT; ARTERIAL BLOOD GAS HCO3 27.5 mmol/L; ARTERIAL BLOOD GAS MET HB 0.8 %sat (0.0-2.0); ARTERIAL BLOOD GAS PCO2 61.8 mmHg (35.0-45.0); ARTERIAL BLOOD GAS VENT MODE AC; ARTERIAL BLOOD GAS pH 7.256 (7.350-7.450); ARTERIAL DRAW? YES
[2017-04-12 04:13] LABS: ARTERIAL BLD GAS O2 SATURATION 98.3 % (90.0-100.0); ARTERIAL BLOOD GAS ALLEN TEST NORMAL; ARTERIAL BLOOD GAS ART SITE RIGHT RADIAL; ARTERIAL BLOOD GAS CARBOXY HB 1.4 %sat (0.0-9.0); ARTERIAL BLOOD GAS DELIVERY VENT; ARTERIAL BLOOD GAS HCO3 25.6 mmol/L; ARTERIAL BLOOD GAS MET HB 0.6 %sat (0.0-2.0); ARTERIAL BLOOD GAS PCO2 33.2 mmHg (35.0-45.0); ARTERIAL BLOOD GAS PO2 84.6 mmHg (80.0-100); ARTERIAL BLOOD GAS pH 7.494 (7.350-7.450); ARTERIAL DRAW? YES
[2017-04-12 04:14] LABS: ARTERIAL BLOOD GAS VENT MODE PC IP 20
[2017-04-12 04:39] LABS: BASOPHIL% 0.1 % (0-2.5); DIFF IND NO; HEMATOCRIT 30.5 % (35.0-45.0); HEMOGLOBIN 9.5 gm/dL (12.0-16.0); LYMPHOCYTE# 0.3 X10e3 (1.0-3.5); LYMPHOCYTE% 3.7 % (17.0-45.0); MEAN CELL VOLUME 86.8 FL (83-96); MEAN CORPUSCULAR HEMOGLOBIN 27.2 PG (28-34); MEAN CORPUSCULAR HGB CONC 31.3 g/dL (30-36); MEAN PLATELET VOLUME 7.4 FL (6.5-11.5); NEUTROPHIL% 84.2 % (40-75); PLATELET COUNT 133 X10e3 (140-420); RED BLOOD COUNT 3.51 X10e (3.90-5.30); WHITE BLOOD COUNT 8.3 X10e3 (4.0-10.5)
[2017-04-12 05:00] LABS: BUN/CREATININE RATIO 34.16; CALCIUM SERUM 7.8 mg/dL (8.4-10.2); CREATININE SERUM 2.4 mg/dL (0.6-1.4); GLOM FILT RATE Estimated 18.6 mL/min (>60)
[2017-04-12 14:25] LABS: ANA SCREEN Negative (Negative); MYELOPEROXIDASE AB (PNL) <1.0 AI (<1.0); PROTEINASE-3 AB (PNL) <1.0 AI (<1.0)
[2017-04-13 03:54] LABS: BASOPHIL% 0.1 % (0-2.5); HEMATOCRIT 31.5 % (35.0-45.0); HEMOGLOBIN 9.8 gm/dL (12.0-16.0); LYMPHOCYTE# 0.1 X10e3 (1.0-3.5); LYMPHOCYTE% 2.5 % (17.0-45.0); MEAN CELL VOLUME 86.9 FL (83-96); MEAN CORPUSCULAR HEMOGLOBIN 27.1 PG (28-34); MEAN CORPUSCULAR HGB CONC 31.2 g/dL (30-36); MEAN PLATELET VOLUME 7.6 FL (6.5-11.5); MONOCYTE# 0.7 X10e3 (0-1.0); MONOCYTE% 13.1 % (3.0-12.0); NEUTROPHIL# 4.6 X10e3 (1.5-7.1); NEUTROPHIL% 84.3 % (40-75); PLATELET COUNT 125 X10e3 (140-420); RED BLOOD COUNT 3.62 X10e (3.90-5.30); RED CELL DISTRIBUTION WIDTH 16.1 % (11.0-15.5); WHITE BLOOD COUNT 5.4 X10e3 (4.0-10.5)
[2017-04-13 03:56] LABS: DIFF IND NO
[2017-04-13 04:11] LABS: INR 3.3; PROTHROMBIN TIME (PATIENT) 35.5 SECONDS (10.0-11.7)
[2017-04-13 04:15] LABS: ARTERIAL BLD GAS O2 SATURATION 98.8 % (90.0-100.0); ARTERIAL BLOOD GAS ALLEN TEST NORMAL; ARTERIAL BLOOD GAS ART SITE RIGHT RADIAL; ARTERIAL BLOOD GAS CARBOXY HB 0.9 %sat (0.0-9.0); ARTERIAL BLOOD GAS DELIVERY VENT; ARTERIAL BLOOD GAS HCO3 27.6 mmol/L; ARTERIAL BLOOD GAS MET HB 0.6 %sat (0.0-2.0); ARTERIAL BLOOD GAS PCO2 42.3 mmHg (35.0-45.0); ARTERIAL BLOOD GAS VENT MODE AC; ARTERIAL BLOOD GAS pH 7.423 (7.350-7.450); ARTERIAL DRAW? YES
[2017-04-13 04:27] LABS: ALBUMIN SERUM 3.2 g/dL (3.5-5.0); BILIRUBIN,TOTAL 1.1 mg/dL (0.2-2.0); BUN/CREATININE RATIO 48.33; CALCIUM SERUM 8.1 mg/dL (8.4-10.2); CREATININE SERUM 1.8 mg/dL (0.6-1.4); GLOM FILT RATE Estimated 26.3 mL/min (>60); MAGNESIUM 2.5 mg/dL (1.6-3.0); PHOSPHOROUS 2.9 mg/dL (2.5-4.6); PROTEIN TOTAL SERUM 5.7 g/dL (6.0-8.3)
[2017-04-14 06:26] LABS: BASOPHIL% 0.1 % (0-2.5); HEMATOCRIT 32.4 % (35.0-45.0); HEMOGLOBIN 9.9 gm/dL (12.0-16.0); LYMPHOCYTE# 0.3 X10e3 (1.0-3.5); LYMPHOCYTE% 3.1 % (17.0-45.0); MEAN CELL VOLUME 87.6 FL (83-96); MEAN CORPUSCULAR HEMOGLOBIN 26.9 PG (28-34); MEAN CORPUSCULAR HGB CONC 30.7 g/dL (30-36); MONOCYTE# 1.4 X10e3 (0-1.0); MONOCYTE% 12.4 % (3.0-12.0); NEUTROPHIL# 9.4 X10e3 (1.5-7.1); NEUTROPHIL% 84.4 % (40-75); PLATELET COUNT 120 X10e3 (140-420); RED CELL DISTRIBUTION WIDTH 15.8 % (11.0-15.5)
[2017-04-14 06:49] LABS: INR 2.2; PROTHROMBIN TIME (PATIENT) 23.7 SECONDS (10.0-11.7)
[2017-04-14 06:54] LABS: DIFF IND NO; WHITE BLOOD COUNT 11.1 X10e3 (4.0-10.5)
[2017-04-14 06:59] LABS: BUN/CREATININE RATIO 44.73; CALCIUM SERUM 8.6 mg/dL (8.4-10.2); CREATININE SERUM 1.9 mg/dL (0.6-1.4); GLOM FILT RATE Estimated 24.6 mL/min (>60); POTASSIUM 4.6 mmol/L (3.5-5.1)
[2017-04-14 08:15] LABS: ARTERIAL BLD GAS O2 SATURATION 99.2 % (90.0-100.0); ARTERIAL BLOOD GAS CARBOXY HB 0.9 %sat (0.0-9.0); ARTERIAL BLOOD GAS HCO3 32.7 mmol/L; ARTERIAL BLOOD GAS pH 7.375 (7.350-7.450)
[2017-04-14 08:16] LABS: ARTERIAL BLOOD GAS ALLEN TEST NORMAL; ARTERIAL BLOOD GAS ART SITE RIGHT RADIAL; ARTERIAL BLOOD GAS DELIVERY VENT; ARTERIAL DRAW? YES
[2017-04-14 08:17] LABS: ARTERIAL BLOOD GAS VENT MODE A/C
[2017-04-15 04:50] LABS: INR 1.6
[2017-04-15 04:58] LABS: ALBUMIN SERUM 3.4 g/dL (3.5-5.0); BILIRUBIN,TOTAL 1.5 mg/dL (0.2-2.0); BUN/CREATININE RATIO 47.89; CALCIUM SERUM 8.6 mg/dL (8.4-10.2); CREATININE SERUM 1.9 mg/dL (0.6-1.4); GLOM FILT RATE Estimated 24.6 mL/min (>60); PHOSPHOROUS 2.7 mg/dL (2.5-4.6); POTASSIUM 4.3 mmol/L (3.5-5.1); PROTEIN TOTAL SERUM 6.2 g/dL (6.0-8.3)
[2017-04-15 07:52] LABS: ARTERIAL BLD GAS O2 SATURATION 98.4 % (90.0-100.0); ARTERIAL BLOOD GAS ALLEN TEST N; ARTERIAL BLOOD GAS ART SITE RIGHT RADIAL; ARTERIAL BLOOD GAS CARBOXY HB 0.8 %sat (0.0-9.0); ARTERIAL BLOOD GAS DELIVERY VENT; ARTERIAL BLOOD GAS HCO3 38.1 mmol/L; ARTERIAL BLOOD GAS MET HB 0.7 %sat (0.0-2.0); ARTERIAL BLOOD GAS PCO2 55.5 mmHg (35.0-45.0); ARTERIAL BLOOD GAS pH 7.445 (7.350-7.450); ARTERIAL DRAW? YES
[2017-04-15 07:53] LABS: ARTERIAL BLOOD GAS VENT MODE AC
[2017-04-16 06:14] LABS: INR 1.7; PROTHROMBIN TIME (PATIENT) 18.1 SECONDS (10.0-11.7)
[2017-04-16 06:25] LABS: BASOPHIL% 0.1 % (0-2.5); EOSINOPHIL# 0.2 X10e3 (0-0.7); EOSINOPHIL% 1.4 % (0.0-7.0); HEMATOCRIT 32.4 % (35.0-45.0); HEMOGLOBIN 9.9 gm/dL (12.0-16.0); LYMPHOCYTE# 1.3 X10e3 (1.0-3.5); LYMPHOCYTE% 11.4 % (17.0-45.0); MEAN CELL VOLUME 88.2 FL (83-96); MEAN CORPUSCULAR HGB CONC 30.6 g/dL (30-36); MEAN PLATELET VOLUME 8.3 FL (6.5-11.5); MONOCYTE# 1.3 X10e3 (0-1.0); MONOCYTE% 11.6 % (3.0-12.0); NEUTROPHIL# 8.5 X10e3 (1.5-7.1); NEUTROPHIL% 75.5 % (40-75); RED BLOOD COUNT 3.68 X10e (3.90-5.30); RED CELL DISTRIBUTION WIDTH 16.3 % (11.0-15.5); WHITE BLOOD COUNT 11.3 X10e3 (4.0-10.5)
[2017-04-16 06:27] LABS: ALBUMIN SERUM 3.2 g/dL (3.5-5.0); BILIRUBIN,TOTAL 1.2 mg/dL (0.2-2.0); BUN/CREATININE RATIO 51.66; CALCIUM SERUM 8.3 mg/dL (8.4-10.2); CREATININE SERUM 1.8 mg/dL (0.6-1.4); GLOM FILT RATE Estimated 26.3 mL/min (>60); MAGNESIUM 1.9 mg/dL (1.6-3.0); PHOSPHOROUS 5.5 mg/dL (2.5-4.6); POTASSIUM 4.8 mmol/L (3.5-5.1)
[2017-04-16 07:13] LABS: DIFF IND YES; PLATELET COUNT 94 X10e3 (140-420)
[2017-04-16 07:19] LABS: PLATELET ESTIMATE DECREASED (NORMAL); RBC NORMAL YES
[2017-04-16 07:20] LABS: ANISOCYTOSIS MOD; HYPOCHROMIA SL
[2017-04-16 07:21] LABS: POIKILOCYTOSIS SL
[2017-04-17 04:39] LABS: BASOPHIL% 0.1 % (0-2.5); HEMATOCRIT 34.4 % (35.0-45.0); HEMOGLOBIN 10.6 gm/dL (12.0-16.0); LYMPHOCYTE# 0.4 X10e3 (1.0-3.5); LYMPHOCYTE% 4.2 % (17.0-45.0); MEAN CELL VOLUME 88.1 FL (83-96); MEAN CORPUSCULAR HEMOGLOBIN 27.2 PG (28-34); MEAN CORPUSCULAR HGB CONC 30.9 g/dL (30-36); MEAN PLATELET VOLUME 8.3 FL (6.5-11.5); MONOCYTE# 0.4 X10e3 (0-1.0); MONOCYTE% 4.4 % (3.0-12.0); NEUTROPHIL% 91.3 % (40-75); PLATELET COUNT 82 X10e3 (140-420); RED CELL DISTRIBUTION WIDTH 15.9 % (11.0-15.5); WHITE BLOOD COUNT 8.8 X10e3 (4.0-10.5)
[2017-04-17 04:40] LABS: DIFF IND NO
[2017-04-17 04:57] LABS: INR 2.7
[2017-04-17 05:02] LABS: BUN/CREATININE RATIO 46.11; CALCIUM SERUM 8.3 mg/dL (8.4-10.2); CREATININE SERUM 1.8 mg/dL (0.6-1.4); GLOM FILT RATE Estimated 26.3 mL/min (>60); MAGNESIUM 2.1 mg/dL (1.6-3.0); PHOSPHOROUS 4.6 mg/dL (2.5-4.6); POTASSIUM 5.4 mmol/L (3.5-5.1)
[2017-04-18 06:29] LABS: HEMATOCRIT 33.4 % (35.0-45.0); HEMOGLOBIN 10.3 gm/dL (12.0-16.0); MEAN CELL VOLUME 88.9 FL (83-96); MEAN CORPUSCULAR HEMOGLOBIN 27.4 PG (28-34); MEAN CORPUSCULAR HGB CONC 30.9 g/dL (30-36); MEAN PLATELET VOLUME 8.7 FL (6.5-11.5); RED BLOOD COUNT 3.76 X10e (3.90-5.30); RED CELL DISTRIBUTION WIDTH 15.7 % (11.0-15.5); WHITE BLOOD COUNT 9.1 X10e3 (4.0-10.5)
[2017-04-18 06:35] LABS: INR 3.5; PROTHROMBIN TIME (PATIENT) 38.1 SECONDS (10.0-11.7)
[2017-04-18 07:02] LABS: ALBUMIN SERUM 3.4 g/dL (3.5-5.0); BILIRUBIN,TOTAL 1.1 mg/dL (0.2-2.0); BUN/CREATININE RATIO 37.36; CALCIUM SERUM 8.2 mg/dL (8.4-10.2); CREATININE SERUM 1.9 mg/dL (0.6-1.4); GLOM FILT RATE Estimated 24.6 mL/min (>60); MAGNESIUM 2.1 mg/dL (1.6-3.0); POTASSIUM 4.9 mmol/L (3.5-5.1); PROTEIN TOTAL SERUM 6.2 g/dL (6.0-8.3)
[2017-04-18 11:22] LABS: IRON SERUM 141 ug/dL (28-170); LACTIC ACID DEHYDROGENASE 226 U/L (91-180); TOTAL IRON BINDING CAPACITY 326 ug/dL (269-535); TRANSFERRIN 233 mg/dL (192-382); TRANSFERRIN SATURATION 43 % (20-50)
[2017-04-19 06:25] LABS: INR 3.3; PROTHROMBIN TIME (PATIENT) 36.4 SECONDS (10.0-11.7)
[2017-04-19 06:27] LABS: HEMATOCRIT 32.1 % (35.0-45.0); MEAN CELL VOLUME 87.5 FL (83-96); MEAN CORPUSCULAR HEMOGLOBIN 27.3 PG (28-34); MEAN CORPUSCULAR HGB CONC 31.2 g/dL (30-36); MEAN PLATELET VOLUME 8.9 FL (6.5-11.5); RED BLOOD COUNT 3.67 X10e (3.90-5.30); RED CELL DISTRIBUTION WIDTH 15.4 % (11.0-15.5); WHITE BLOOD COUNT 8.7 X10e3 (4.0-10.5)
[2017-04-19 07:28] LABS: ALBUMIN SERUM 3.2 g/dL (3.5-5.0); BILIRUBIN,TOTAL 0.9 mg/dL (0.2-2.0); BUN/CREATININE RATIO 44.37; CALCIUM SERUM 8.4 mg/dL (8.4-10.2); CREATININE SERUM 1.6 mg/dL (0.6-1.4); GLOM FILT RATE Estimated 30.3 mL/min (>60); POTASSIUM 4.6 mmol/L (3.5-5.1); PROTEIN TOTAL SERUM 5.5 g/dL (6.0-8.3)
[2017-04-20 06:05] LABS: HEMATOCRIT 31.2 % (35.0-45.0); HEMOGLOBIN 9.7 gm/dL (12.0-16.0); MEAN CELL VOLUME 88.2 FL (83-96); MEAN CORPUSCULAR HEMOGLOBIN 27.4 PG (28-34); MEAN PLATELET VOLUME 8.8 FL (6.5-11.5); RED BLOOD COUNT 3.54 X10e (3.90-5.30); RED CELL DISTRIBUTION WIDTH 15.5 % (11.0-15.5); WHITE BLOOD COUNT 9.7 X10e3 (4.0-10.5)
[2017-04-20 06:35] LABS: BUN/CREATININE RATIO 44.44; CALCIUM SERUM 8.1 mg/dL (8.4-10.2); CREATININE SERUM 1.8 mg/dL (0.6-1.4); GLOM FILT RATE Estimated 26.3 mL/min (>60); MAGNESIUM 1.8 mg/dL (1.6-3.0); PHOSPHOROUS 3.9 mg/dL (2.5-4.6); POTASSIUM 4.5 mmol/L (3.5-5.1)
[2017-04-20 07:58] LABS: INR 2.3; PROTHROMBIN TIME (PATIENT) 25.1 SECONDS (10.0-11.7)
[2017-04-20 22:08] LABS: ANA SCREEN Negative (Negative)
== END 2017-04-20 14:15 | DRG 291 ==
LOC: CED 15:19 → C5C 18:15 → CEDOF 18:15 → C5C 18:31 → CED 18:31 → CEDOF 21:15 → C5C 21:15 → CICCU3 04-09 09:22 → CEDOF 04-12 09:46 → CICCU3 04-12 09:48 → C5C 04-16 14:52
PROVIDERS: Emergency Medicine; Internal Medicine; Internal Medicine Cardiovascular Disease; Internal Medicine Hematology & Oncology; Internal Medicine Nephrology; Nurse Practitioner; Orthopaedic Surgery; Physical Medicine & Rehabilitation
PROC: B246YZZ Ultrasonography of Right and Left Heart using Other Contrast (ICD-10-PCS; principal; 2017-04-07)
PROC: 0DH67UZ Insertion of Feeding Device into Stomach, Via Natural or Artificial Opening (ICD-10-PCS; 2017-04-07)
PROC: 5A1945Z Respiratory Ventilation, 24-96 Consecutive Hours (ICD-10-PCS; 2017-04-11)
PROC: 05HM33Z Insertion of Infusion Device into Right Internal Jugular Vein, Percutaneous Approach (ICD-10-PCS; 2017-04-11)
PROC: 0BH17EZ Insertion of Endotracheal Airway into Trachea, Via Natural or Artificial Opening (ICD-10-PCS; 2017-04-11)
DX: I13.0 Hypertensive heart and chronic kidney disease with heart failure and stage 1 through stage 4 chronic kidney disease, or unspecified chronic kidney disease (principal); I50.33 Acute on chronic diastolic (congestive) heart failure; J18.9 Pneumonia, unspecified organism; N17.9 Acute kidney failure, unspecified; E11.22 Type 2 diabetes mellitus with diabetic chronic kidney disease; D69.6 Thrombocytopenia, unspecified; J96.02 Acute respiratory failure with hypercapnia; J96.01 Acute respiratory failure with hypoxia; J44.0 Chronic obstructive pulmonary disease with (acute) lower respiratory infection; I27.2 Other secondary pulmonary hypertension; E87.1 Hypo-osmolality and hyponatremia; N39.0 Urinary tract infection, site not specified; E66.2 Morbid (severe) obesity with alveolar hypoventilation; N18.3 Chronic kidney disease, stage 3 (moderate); I48.2 Chronic atrial fibrillation; Z79.01 Long term (current) use of anticoagulants; I25.10 Atherosclerotic heart disease of native coronary artery without angina pectoris; E66.01 Morbid (severe) obesity due to excess calories; Z85.72 Personal history of non-Hodgkin lymphomas; Z87.891 Personal history of nicotine dependence; Z86.19 Personal history of other infectious and parasitic diseases; Z90.49 Acquired absence of other specified parts of digestive tract; Z90.710 Acquired absence of both cervix and uterus; Z98.49 Cataract extraction status, unspecified eye; E53.8 Deficiency of other specified B group vitamins; Z79.84 Long term (current) use of oral hypoglycemic drugs; Z88.8 Allergy status to other drugs, medicaments and biological substances; E87.5 Hyperkalemia; B96.89 Other specified bacterial agents as the cause of diseases classified elsewhere; B96.20 Unspecified Escherichia coli [E. coli] as the cause of diseases classified elsewhere
CPT/HCPCS: 36415; 36600; 71010; 71020; 74000; 76770; 80048; 80053; 80076; 80202; 81003; 82308; 82550; 82553; 82570; 82607; 82803; 82947; 83036; 83520; 83540; 83550; 83605; 83615; 83735; 83880; 84100; 84156; 84443; 84484; 85025; 85027; 85044; 85610; 86021; 86038; 86039; 86160; 86225; 86803; 87040; 87070; 87086; 87088; 87186; 87205; 87340; 87806; 89190; 93005; 93306; 94002; 94003; 94640; 94660; 94668; 94760; 97110; 97116; 97162; 97166; 97530; 99285; C9113; G8978-GP; G8979-GP; G8987-GO; G8988-GO; J0610; J1650; J1815; J1940; J1956; J2250; J2270; J2543; J2920; J3010; J3370

== ENCOUNTER 2017-05-10 16:05 | Inpatient (IN) | payer MEDICARE, OTHER ==
[~2017-05-10] VITALS: Ht 157.5 cm; Wt 109.2 kg
--- NOTE | ~2017-05-10 | CR71 ---
[facility] A Service of [facility] & [facility] RADIOLOGY TEXT RESULTS PATIENT: DELONTE HERRING LOCATION: [place] [address] : 37 UNIT #: [id number] AGE: [address]: Elder Sandhu MD SEX: F ORDER DR: [id number] [facility] [address] [place], [place] [address] [id number] I MR#: [id number] Acc #: [id number] NAME: DELONTE HERRING : 1935 SEX: F STUDY DATE/TIME: 05/11/2017 13:58 UNIT: C3A PCU ROOM: [facility] STUDY DESCRIPTION: CR Chest Single View Attending Physician: Shira Sandhu M.D. Ordering Physician: Damir Villatoro M.D. Primary Care Physician: Sofiya Flowers M.D. MEDICAL IMAGING REPORT This report is preliminary unless electronic signature is present EXAM Portable chest one-view 05/11/2017 HISTORY Status post left thoracentesis FINDINGS Decreased left pleural effusion but there is still left basilar consolidation. There is interstitial prominence and cardiomegaly but no pneumothorax. Dictated by... Damir Villatoro M.D. THIS IS AN ELECTRONICALLY VERIFIED REPORT Damir Villatoro M.D. at 05/16/2017 10:04 AM DEISI/pilar TD: 05/11/2017 16:52 JOB #: [id number] MEDICAL IMAGING REPORT Page 1 of 1 COPY
--- NOTE | ~2017-05-10 | CR72 ---
[facility] A Service of [facility] RADIOLOGY TEXT RESULTS PATIENT: DELONTE HERRING LOCATION: [facility] : 37 UNIT #: [id number] AGE: [address]: Elder Sandhu MD SEX: F ORDER DR: [id number] [facility] [address] [place], [place] [address] [id number] I MR#: [id number] Acc #: [id number] NAME: DELONTE HERRING : 1935 SEX: F STUDY DATE/TIME: 05/13/2017 6:00 UNIT: [facility] ROOM: [facility] STUDY DESCRIPTION: CR Chest Single View Portable Attending Physician: Shira Sandhu M.D. Ordering Physician: Marc Lozano M.D. Primary Care Physician: Sofiya Flowers M.D. MEDICAL IMAGING REPORT This report is preliminary unless electronic signature is present EXAM AP view of chest. COMPARISON STUDIES 05/11/2017, 05/10/2017. INDICATIONS 81-year-old female with dyspnea for 3 days. History of CHF and hypertension. FINDINGS Stable cardiomegaly. Stable small left pleural effusion with associated left basilar atelectasis or pneumonia or possibly asymmetric edema. Interstitial opacities throughout the lungs are otherwise grossly stable, likely reflecting mild pulmonary vascular congestion. Trace right pleural effusion cannot be excluded, not significantly change. IMPRESSION Stable chest with stable small left pleural effusion and associated left basilar atelectasis, pneumonia or possibly asymmetric edema. Diffuse pulmonary vascular congestion/mild interstitial edema is stable and there may be a stable trace right pleural effusion. Dictated by... Paco Morse M.D. THIS IS AN ELECTRONICALLY VERIFIED REPORT Paco Morse M.D. at 05/19/2017 8:45 PM BLM/pcl [facility] A Service of [facility] & [facility] RADIOLOGY TEXT RESULTS PATIENT: DELONTE HERRING LOCATION: [facility] : 37 UNIT #: [id number] AGE: [address]: Elder Sandhu MD SEX: F ORDER DR: TD: 05/13/2017 10:47 JOB #: [id number] MEDICAL IMAGING REPORT Page 1 of 1 COPY
--- NOTE | ~2017-05-10 | CR72 ---
[facility] A Service of [facility] & [facility] RADIOLOGY TEXT RESULTS PATIENT: DELONTE HERRING LOCATION: [facility] 318- : 37 UNIT #: [id number] AGE: [address]: Elder Sandhu MD SEX: F ORDER DR: [id number] [facility] [address] [place], [place] [address] [id number] I MR#: [id number] Acc #: [id number] NAME: DELONTE HERRING. : 1935 SEX: F STUDY DATE/TIME: 05/10/2017 18:43 UNIT: [address] ROOM: [facility] STUDY DESCRIPTION: CR Chest Single View Portable Attending Physician: Shira Sandhu M.D. Ordering Physician: Kenneth Zapata M.D. Primary Care Physician: Sofiya Flowers M.D. MEDICAL IMAGING REPORT This report is preliminary unless electronic signature is present EXAM Portable chest, 05/10/2017 HISTORY Shortness of breath beginning 1 day ago, congestive heart failure. Benign essential hypertension. FINDINGS The heart is enlarged but stable compared with 04/19/2017. Left pleural effusion with infiltrate or atelectasis left lower lobe. Atelectasis or infiltrate right base. The upper lungs are clear. No pneumothorax. IMPRESSION 1. Stable cardiac enlargement compared with 04/19/2017. 2. Small to moderate left pleural effusion with infiltrate or atelectasis left lower lobe. 3. Infiltrate or atelectasis right base. Dictated by... Gelacio Reich M.D. THIS IS AN ELECTRONICALLY VERIFIED REPORT Gelacio Reich M.D. at 05/11/2017 7:21 AM TAMMI/matt TD: 05/11/2017 00:23 JOB #: [id number] MEDICAL IMAGING REPORT Page 1 of 1 COPY
--- NOTE | ~2017-05-10 | EKG ---
PATIENT: DELONTE HERRING UNIT #: [id number] Ventricular Rate: 96 BPM Atrial Rate: 375 BPM QRS Duration: 78 ms Q-T Interval: 346 ms QTC Calculation(Bezet): 437 ms Calculated R Abrams: -14 degrees Calculated T Abrams: 41 degrees Diagnosis Line: Atrial fibrillation Diagnosis Line: Abnormal ECG Diagnosis Line: When compared with ECG of 06-APR-2017 15:37, Diagnosis Line: No significant change was found Diagnosis Line: Confirmed by ANTHONY ALEXIS MD ([id number]) on 05/11/2017 Diagnosis Line: 10:54:34 AM INTERPRETING MD: REUBEN PEARCE
--- NOTE | ~2017-05-10 | CT57 ---
[facility] A Service of [facility] RADIOLOGY TEXT RESULTS PATIENT: DELONTE HERRING LOCATION: [place] [address] : 37 UNIT #: [id number] AGE: [address]: Elder Sandhu MD SEX: F ORDER DR: [id number] [facility] [address] [place], [place] [address] [id number] I MR#: [id number] Acc #: [id number] NAME: DELONTE HERRING. : 1935 SEX: F STUDY DATE/TIME: 05/11/2017 12:49 UNIT: C3A PCU ROOM: [facility] STUDY DESCRIPTION: CT Chest Wo Cont Attending Physician: Shira Sandhu M.D. Ordering Physician: Shira Sandhu M.D. Primary Care Physician: Sofiya Flowers M.D. MEDICAL IMAGING REPORT This report is preliminary unless electronic signature is present EXAM CT of the chest without contrast INDICATIONS Shortness of breath for a few months. TECHNIQUE CT of the chest performed without contrast. Coronal and sagittal reformatted images were obtained. This CT exam was performed with one or more of the following radiation dose reduction techniques: automatic exposure control, adjustment of mA and/or kV according to patient size, and iterative reconstruction. COMPARISON STUDIES 12/17/2012. FINDINGS There are small bilateral pleural effusions. Emphysema. There are ground-glass changes in the lungs. There is consolidation/atelectasis involving the left lower lobe. Mild passive atelectasis of the right lower lobe. There are mildly prominent mediastinal lymph nodes, which are likely reactive given the findings in the lungs. Coronary artery calcification. Limited imaging of the upper abdomen is unremarkable. The bone windows are unremarkable. IMPRESSION 1. Small bilateral pleural effusions. 2. Ground-glass changes in the lungs, likely pulmonary edema given the patient's clinical history of congestive heart failure. 3. Left lower lobe atelectasis/consolidation and mild right lower lobe passive atelectasis. [facility] A Service [facility] RADIOLOGY TEXT RESULTS PATIENT: DELONTE HERRING LOCATION: [facility] : 37 UNIT #: [id number] AGE: [address]: Elder Sandhu MD SEX: F ORDER DR: Dictated by... Joshua Garcia M.D. THIS IS AN ELECTRONICALLY VERIFIED REPORT Joshua Garcia M.D. at 05/13/2017 12:11 PM ARS/pcl TD: 05/11/2017 21:48 JOB #: [id number] MEDICAL IMAGING REPORT Page 1 of 1 COPY
--- NOTE | ~2017-05-10 | XA203 ---
[facility] A Service of [facility] & [facility] RADIOLOGY TEXT RESULTS PATIENT: DELONTE HERRING LOCATION: [place] [address] : 37 UNIT #: [id number] AGE: [address]: Elder Sandhu MD SEX: F ORDER DR: [id number] [facility] [address] [place], [place] [address] [id number] I MR#: [id number] Acc #: [id number] NAME: DELONTE HERRING : 1935 SEX: F STUDY DATE/TIME: 05/11/2017 13:25 UNIT: C3A PCU ROOM: [facility] STUDY DESCRIPTION: XA Thoracentesis Attending Physician: Shira Sandhu M.D. Ordering Physician: Hima Norman M.D. Primary Care Physician: Sofiya Flowers M.D. MEDICAL IMAGING REPORT This report is preliminary unless electronic signature is present EXAM Ultrasound-guided left thoracentesis. HISTORY Pleural effusion. PROCEDURE Informed consent was obtained. A skin site was selected using ultrasound guidance and marked. Thoracentesis was performed with a Fliplife needle catheter. A total of 300 mL of yellowish slightly turbid fluid was aspirated and sent for testing. There were no complications. The patient tolerated the procedure well. IMPRESSION Successful ultrasound-guided thoracentesis with removal of 300 mL of yellowish, slightly turbid fluid. Dictated by... Damir Villatoro M.D. THIS IS AN ELECTRONICALLY VERIFIED REPORT Damir Villatoro M.D. at 05/16/2017 10:04 AM DEISI/jennifer TD: 05/11/2017 18:27 JOB #: [id number] MEDICAL IMAGING REPORT Page 1 of 1 COPY
--- NOTE | ~2017-05-10 | HP ---
Unit #: [id number] #: [id number] Patient: DELONTE HERRING [id number] [place] [address] [facility] [place], [place] [address] [id number] I MR#: [id number] NAME: DELONTE HERRING ROOM: 318 Age: 81 Sex: F Admission Date: 05/10/2017 : 1935 Attending Physician: Shira Sandhu M.D. Primary Care Physician: Sofiya Flowers M.D. HISTORY AND PHYSICAL CHIEF COMPLAINT Shortness of breath. HISTORY OF PRESENT ILLNESS The patient is a 81-year-old female known to Dr. Norman. The patient has had a cardiac catheterization with a plain balloon angioplasty to the left circumflex in the past. Most recent echo on 04/07/2017 revealed an ejection fraction of 50% with mild LVH. V-shaped left ventricle consistent with right ventricular volume overload/pressure overload. Left atrium mildly dilated. Mildly dilated right ventricle. RSVP of 47 mmHg. Aortic valve area 2 cm squared with maximum gradient of 28 mmHg with a mean gradient of 17 mmHg. Mitral and tricuspid regurgitation. Additional past history includes permanent atrial fibrillation on Coumadin, hypertension, hyperlipidemia, diabetes, chronic kidney disease stage 3, anemia, morbid obesity and non-Hodgkin lymphoma. The patient was recently admitted to [facility] 04/06/2017 through 04/20/2017 for acute hypoxic respiratory failure, atypical pneumonia and alxnt-qx-jxvzytg diastolic congestive heart failure exacerbation. Also at that time, nephrology was consulted for hyperkalemia and assistance with volume overload. She did have to be started on a Cardizem drip for management of her atrial fibrillation. The patient was treated with antibiotics that were stopped on 04/19/2017 for her pneumonia. The patient reports that she presented to the emergency department with complaints of shortness of breath times two to three days. She states that she is short of breath at rest and with exertion. The patient denies any chest pain, nausea, vomiting, fever or chills. She states that she is unable to lie flat at night. She endorses that she sleeps in a chair or sleeps on two to three pillows. The patient does live alone. The patient's EKG showed atrial fibrillation with a controlled ventricular rate. Chest x-ray shows findings concerning for left pleural effusion. Her creatinine is currently 1.6 and her BNP is 247. Her INR is 1.6. Her urinalysis is positive. PAST MEDICAL HISTORY 1. Coronary artery disease with a history of angioplasty to the left circumflex. 2. Two-dimensional echocardiogram on 04/07/2017 with an ejection fraction of 50%, mild LVH and a V-shaped left ventricle, consistent with right ventricular volume overload and volume pressure. Left atrium mildly dilated. Moderately dilated RV. RSVP 47 mmHg, aortic Unit #: [id number] #: [id number] Patient: DELONTE HERRING valve area 2 cm squared with a maximum gradient of 28 mmHg and a mean gradient of 17 mmHg. Mild mitral regurgitation and tricuspid regurgitation. 3. Chronic atrial fibrillation on Coumadin therapy. 4. Chronic diastolic congestive heart failure with an ejection fraction of 50%. 5. Chronic kidney disease stage 3. 6. Hypertension. 7. Hyperlipidemia. 8. Diabetes. 9. Chronic anemia. 10. Non-Hodgkin lymphoma. 11. Obesity with BMI greater than 40. 12. Reformed tobaccoism. PAST SURGICAL HISTORY 1. Cholecystectomy. 2. Tonsillectomy. 3. Hysterectomy. 4. Cataract extraction. SOCIAL HISTORY The patient denies tobacco, alcohol or illicit drug abuse. FAMILY HISTORY Negative for coronary artery disease . ALLERGIES Macrolide antibiotics, prednisone and simvastatin. HOME MEDICATIONS 1. Pepcid 20 mg p.o. b.i.d. 2. Coumadin 2 mg p.o. daily. 3. Calcium carbonate 600 mg p.o. b.i.d. 4. Bumex 2 mg p.o. b.i.d. 5. Januvia 50 mg p.o. daily. 6. Glipizide 10 mg p.o. daily. 7. Lipitor 10 mg p.o. daily. 8. Imdur ER 30 mg p.o. daily. 9. Hydrocodone/acetaminophen 5/325 mg 1 tablet p.o. q.6 h. p.r.n. pain. 10. Lopressor 25 mg p.o. b.i.d. 11. Melatonin 1 tablet p.o. at bedtime. 12. Claritin 10 mg p.o. daily. 13. Combivent 3 cc inhalation q.4 h. 14. Ferrex 150+ capsule, 1 tablet p.o. b.i.d. 15. Symbicort 160/4.5 mcg 1 puff inhalation daily. 16. Potassium 20 mEq p.o. t.i.d. 17. NovoLog sliding scale insulin. 18. Lorcet 5/325 mg 1 tablet p.o. q.6 h. p.r.n. pain. 19. Mucinex 1 tablet p.o. b.i.d. REVIEW OF SYSTEMS A 10-point review of systems has been done and is considered otherwise negative unless indicated in the history of present illness. PHYSICAL EXAMINATION GENERAL: The patient is awake and alert, in no acute distress. VITALS: Temperature 97.7, heart rate 89, respiratory rate 22, blood Unit #: [id number] #: [id number] Patient: DELONTE HERRING J pressure 107/47. She is oxygenating 97%. HEENT: Head is atraumatic, normocephalic. Pupils equal, round and reactive to light. Extraocular movements are intact. No drainage from ears or nares. NECK: Supple. Trachea is midline. Normal carotid upstrokes. No thyromegaly or lymphadenopathy is appreciated. CHEST: Lungs are diminished bilaterally with crackles in the left base. No wheezes. CARDIOVASCULAR: Irregularly irregular. No murmur, rub or gallop appreciated. ABDOMEN: Soft, nontender and nondistended. Bowel sounds are positive in all four quadrants. No hepatosplenomegaly is appreciated. SKIN: Appears to be warm, dry and intact. EXTREMITIES: No clubbing or cyanosis. There is trace edema. NEUROLOGIC: Patient is alert and oriented times 3. She is pleasant and conversant. No focal deficits. Cranial nerves II through XII appear to be intact. DIAGNOSTIC STUDIES IMAGING: Chest x-ray shows findings concerning for left pleural effusion. LABORATORY: Urinalysis is positive. White blood cell count 4.7, hemoglobin 8.8, hematocrit 28.7, platelets 182, sodium 143, potassium 4.3, chloride 94, CO2 40, BUN 34, creatinine 1.6, glucose 109, BNP 247, TSH 1.34. CARDIOVASCULAR: EKG shows atrial fibrillation with a rate of 96 beats per minute. ASSESSMENT/PLAN 1. Left pleural effusion. Possibly secondary to lymphoma. 2. Moderate pulmonary hypertension with an RSVP of 47 mmHg. 3. Chronic diastolic left ventricular dysfunction with an ejection fraction of 50%. 4. Permanent atrial fibrillation on Coumadin therapy. 5. Stable angina, status post plain balloon angioplasty to the left circumflex. 6. Hypertension. 7. Hyperlipidemia. 8. Diabetes. 9. Chronic kidney disease stage 3. 10. Reformed tobaccoism. 11. At this time will hold Coumadin. The patient will remain n.p.o. for a possible thoracentesis for her left pleural effusion. At this time, the patient's BNP is 247. There are no overt signs of fluid overload. The patient's pleural fluid will be sent for cell count, pathology, culture and chemistry. Will ask Dr. Hong and Dr. Thompson to evaluate the patient. Dictated by Cheryl Pacheco A.P.R.N. for Hima Norman M.D. AM/kasandra TD: 05/11/2017 10:36 JOB #: [id number] Unit #: [id number] #: [id number] Patient: DELONTE HERRING HISTORY AND PHYSICAL Page 1 of 1 X Cheryl Pacheco APRN HISTORY AND PHYSICAL
--- NOTE | ~2017-05-10 | BMI ---
[facility] Nutrition Therapy DATE: 05/11/17 Patient: DELONTE HERRING Physician: DELIA Address: [address] [facility] [address] [facility] Room/Bed: [address] [place] [address], Zip: [place] [address] Admit Date: 05/10/17 Date of : 37 Height: 5 2 Weight: 233 106 HIGH BMI NOTE: DX: 81 Y.O. FEMALE ADMITTED FOR CHF ANTHROPOMETRICS: 5'2", WT: 234# (106 KG), BMI: 42.8 DIET: CC+HH RECOMMENDATIONS: 1. RECOMMEND TO CONTINUE CURRENT DIET ORDER TO PROMOTE GRADUAL WEIGHT LOSS TOWARDS HEALTHY BMI (19.0-25.0) OR +/-10%IBW RD WILL F/U PER PROTOCOL Respectfully, RADHA COOPER MS, RD, LD [employer] [facility] Nutrition[facility] Services [facility] cc: client file
--- NOTE | ~2017-05-10 | DS ---
Unit #: [id number] #: [id number] Patient: DELONTE HERRING [id number] [address] [address] [id number] MR#: [id number] NAME: DELONTE HERRING ROOM: 557 Age: 81 Sex: F Admission Date: 05/10/2017 : 1935 Discharge Date: 05/15/2017 Attending Physician: Shira Sandhu M.D. Primary Care Physician: Sofiya Flowers M.D. DISCHARGE SUMMARY DISCHARGE DIAGNOSES 1. Acute hypercapnic hypoxic respiratory failure. 2. Acute on chronic diastolic congestive heart failure. 3. Pleural effusion status post left thoracentesis. 4. Pulmonary hypertension. 5. Permanent atrial fibrillation, on chronic anticoagulation with Coumadin. 6. History of non-Hodgkin lymphoma status post chemotherapy, followed by Dr. Thompson. 7. History of coronary artery disease. 8. Hypertension. 9. Hyperlipidemia. 10. Diabetes mellitus. 11. Chronic anemia. DISCHARGE MEDICATIONS 1. Albuterol ipratropium nebulizer q.4 hours p.r.n. 2. Calcium carbonate 600 mg p.o. b.i.d. 3. Flonase 1 spray nasally daily. 4. Warfarin 6 mg on 05/15 and 05/16, then warfarin 2 mg p.o. daily. 5. Januvia 50 mg p.o. daily. 6. Claritin 10 mg p.o. daily. 7. Dulera 200/5 two puffs inhalation b.i.d. 8. Metoprolol tartrate 50 mg p.o. b.i.d. 9. Bumex 2 mg p.o. b.i.d. 10. Guaifenesin 1 tab p.o. b.i.d. 11. Atorvastatin 10 mg p.o. daily. 12. NovoLog insulin subcu a.c. and h.s. 13. Ferrex 150 Plus 1 capsule p.o. b.i.d. 14. Famotidine 20 mg p.o. b.i.d. 15. Melatonin 1 tablet p.o. q.h.s. 16. Hydrocodone 5/325 mg 1 tab p.o. q.6 hours p.r.n. 17. Calcium 500 plus vitamin D 1 tab p.o. daily. 18. Potassium chloride 20 mEq p.o. b.i.d. 19. Glipizide 5 mg p.o. daily before breakfast. 20. Isosorbide mononitrate 30 mg p.o. daily. 21. Omnicef 300 mg 1 tablet p.o. b.i.d. x2 days. Stop after dose on 05/15/2017. HOSPITAL COURSE This is a 81-year-old female who follows with Dr. Norman. She was initially admitted with complaints of shortness of breath. She has a history of permanent atrial fibrillation and known coronary artery Unit #: [id number] #: [id number] Patient: DELONTE HERRING. The patient had a cardiac cath with a POBA to the left circumflex in the past. She also has chronic diastolic congestive heart failure, hypertension and diabetes mellitus. She presented to the emergency room for evaluation after experiencing increasing shortness of breath, worse with exertion, at [facility], as well as lower extremity edema. She had an elevated BNP on admission of 237. Chest x-ray showed a moderate left pleural effusion with infiltrate. Pulmonary was consulted, and it was determined that she needed thoracentesis. The patient underwent left thoracentesis with successful removal of 300 mL of fluid. Last known echocardiogram showed LVEF of 60%, RVSP of 47 mmHg, consistent with moderate pulmonary hypertension. Aortic valve leaflets were moderately calcified. Aortic valve area is 2 cm x 2 with a maximum gradient of 28 mmHg and a mean gradient of 17 mmHg. There was mild mitral regurgitation and moderate tricuspid regurgitation. The patient was diuresed during her hospitalization. She also had bilateral venous Doppler of her legs to rule out DVT, which was negative for any evidence of DVT. The patient had been on Coumadin therapy, which was stopped prior to her thoracentesis. This has since been resumed. Oncology was also consulted during her stay secondary to previous history of non-Hodgkin lymphoma. The patient had been originally diagnosed with this in 2011 and had undergone chemotherapy, followed by observation. Hematology service was agreeable to the left thoracentesis. Her anemia was felt to stable, and no further anemia workup was initiated. The patient was transferred to ICU during her hospitalization and placed on BiPAP for hypercapnic hypoxic respiratory failure. She was also found to have a urinary tract infection during this admission. After her thoracentesis, her Coumadin has been resumed. INR is currently subtherapeutic. She will be given 6 mg today, as well as tomorrow, and then changed to 2 mg daily. CONSULTANTS 1. Dr. Loyola of [facility] for medical management. 2. Dr. Thompson, hematology/oncology, secondary to history of non-Hodgkin lymphoma. 3. Dr. Lozano, pulmonary. DIAGNOSTIC STUDIES LABORATORY: Glucose 136, BUN 39, creatinine 1.7, sodium 140, potassium 5.3 (repeat is currently pending), chloride 90, CO2 46. PT 13.2, INR 1.2. Hemoglobin 8.4, hematocrit 27.5, WBC 5.2, platelet count 168. IMAGING: Chest x-ray from 05/13/2017 shows stable chest with small stable pleural effusions and associated left basilar atelectasis, pneumonia or possibly asymmetric edema. Diffuse pulmonary vascular congestion. Mild interstitial edema is stable, and there may be a stable trace right pleural effusion. CARDIOVASCULAR: EKG - Atrial fibrillation, 96 beats per minute, QTc interval 437 msec. No acute ischemic change. Unit #: [id number] #: [id number] Patient: DELONTE HERRING PHYSICAL EXAMINATION GENERAL: This is a pleasant 81-year-old female in no acute distress. She is currently up in the chair on some oxygen. Trilogy is at bedside. HEENT: Head is atraumatic, normocephalic. Pupils are equal and round. Extraocular movements are intact. Mucous membranes are moist. NECK: Supple. Trachea is midline. No JVD. No lymphadenopathy or thyromegaly. Normal carotid upstrokes. CHEST: Clear to auscultation anteriorly. Diminished in the bases. Mild bibasilar crackles are noted. CARDIOVASCULAR: S1, S2. Irregularly irregular. No murmur, gallop or rub. ABDOMEN: Obese pannus, soft, nontender, nondistended. Bowel sounds are present. EXTREMITIES: Pulses are palpable. Still with 1 to 2+ bilateral lower extremity edema. Skin is fragile. NEUROLOGIC: The patient is awake, alert and oriented x3. Moves all extremities equally and follows commands with ease. VITAL SIGNS: Temperature 98.1, respiratory rate 16 to 20, pulse 97, blood pressure 90/50 to 117/60. DISCHARGE INSTRUCTIONS The patient has been seen and evaluated by myself, as well as Dr. Norman today. It is felt she is stable for discharge to [facility] with Trilogy in place. She appears compensated from a congestive heart failure standpoint; however, the patient does still have some lower extremity edema, most likely secondary to venous stasis or malnutrition. Albumin is slightly low at 3.2. The patient is also noted to have a subtherapeutic INR. She does have permanent atrial fibrillation and is on chronic anticoagulation with Coumadin therapy. Today's INR is 1.2. We will give her a total Coumadin dose of 6 mg p.o. now and 6 mg tomorrow, followed by 2 mg p.o. daily. There is no need for Lovenox bridging per Dr. Norman's orders. The patient will have an INR every Sunday, Sunday and Sunday with orders to call to MD for further Coumadin orders. She will also follow with Dr. Norman in his office on June 26, at 2 p.m. She denies any complaints of chest pain. Her breathing is improved. Denies shortness of breath at this time. Currently has a repeat CMP, which is pending, due to her slightly elevated potassium level. The patient's rhythm remains atrial fibrillation with controlled ventricular rate. She is also being sent out on Omnicef for an additional 2 days for treatment of her urinary tract infection. Dictated by... Helena Haddad A.P.R.N. LMW/db TD: 05/15/2017 13:16 JOB #: [id number] Unit #: [id number] #: [id number] Patient: DELONTE HERRING Alfredo DISCHARGE SUMMARY Page 1 of 1 X Helena Haddad APRN DISCHARGE SUMMARY
--- NOTE | ~2017-05-10 | CO ---
Unit #: [id number] #: [id number] Patient: JODIE HERRING [id number] [address] [address] [id number] I MR#: [id number] NAME: JODIE HERRING ROOM: [facility] Age: 81 Sex: F Admission Date: 05/10/2017 : 1935 Attending Physician: Shira Sandhu M.D. Primary Care Physician: Sofiya Flowers M.D. Requesting Physician: Hima Norman M.D. Consultation Date: 05/11/2017 CONSULTATION REPORT REASON FOR CONSULTATION Left pleural effusion, possible recurrent lymphoma. HISTORY OF PRESENT ILLNESS Ms. Jodie Herring is well known to me with a history of follicular lymphoma originally diagnosed in 2011 when she presented with right pleural effusion, subsequently undergoing chemotherapy followed by observation. She was admitted to the hospital on 05/10/2017, complaining of shortness of breathing. She was found to be in mild heart failure but significantly had a large left pleural effusion which could not be explained by heart failure. She tells me she has been tired but has had no significant changes from appetite, weight, fevers and night sweats in recent months. PAST HISTORY 1. Longstanding type 2 diabetes mellitus. 2. Chronic atrial fibrillation, on Warfarin therapy. 3. CHF and bronchitis. 4. Low grade non-Hodgkin lymphoma, diagnosed after tonsillectomy on February 05, 2012. Workup revealed pleural involvement on the right side and she underwent treatment with Rituxan with reactivation of hepatitis B which spontaneously subsided. FAMILY HISTORY Lung cancer in a sister. SOCIAL HISTORY 35 pack-year history of smoking, quitting 30 years prior to visit in 2011. She has four children. ALLERGIES Erythromycins and prednisone. REVIEW OF SYSTEMS A 14-point review of systems was taken. CONSTITUTIONAL: As discussed. EYES: Negative. EARS, NOSE, MOUTH, AND THROAT: Negative. CARDIOVASCULAR: Shortness of breathing. No cough or hemoptysis. GASTROINTESTINAL: Negative. GENITOURINARY: Negative. NEUROLOGIC: Negative. ALLERGIC/LYMPHATIC: Negative. SKIN: Negative. PSYCHIATRIC: Negative. Unit #: [id number] #: [id number] Patient: JODIE HERRING PHYSICAL EXAMINATION GENERAL: She is a pleasant, elderly woman, lying in bed, currently in no distress. She is awake, alert, oriented x3. VITAL SIGNS: Temperature is 97.7, pulse rate is 94, respiratory rate 18, blood pressure 103/68, O2 sats 100% on room air. HEENT: Shows pupils equal, react well to light. No pallor or icterus. NECK: Without adenopathy, JVD, or thyromegaly. CARDIOVASCULAR: First and second heart sounds are heard, irregular. LUNGS: Chest expansion is symmetric with somewhat decreased air entry in the left base. There is no (1) adenopathy. ABDOMEN: Soft, nontender. Left and spleen are palpable. No inguinal adenopathy. EXTREMITIES: Warm with good pulses. No edema, cyanosis or clubbing. NEUROLOGIC: She is awake, alert, and oriented x3 without any focal findings. DIAGNOSTIC STUDIES LABORATORY RESULTS: Procalcitonin level is 0.06, protime is 17.7, INR 1.6. Basic metabolic panel shows a BUN of 34, creatinine is 1.6. CBC shows a white count of 4.7, hemoglobin is 8.8, platelet count is 182,000. IMAGING: Chest x-ray was personally reviewed by me and shows a moderate size left pleural effusion. ASSESSMENT AND PLAN Jodie Herring is 81 years old with a history of follicular lymphoma diagnosed in 2011 at which point she was treated and now is five years after diagnosis without any ongoing treatment. She is now admitted with shortness of breathing. Has been found to have a moderate left pleural effusion with only evidence of mild congestive heart failure suggesting another etiology. I discussed with Dr. Norman. It would be appropriate to proceed ahead with a left thoracentesis, both diagnostic and therapeutic, including flow cytometry. I discussed the procedure with interventional radiology staff to confirm the fluid will be sent for flow cytometry. Will also plan to get CT scan of the chest to be done without contrast in view of her chronic kidney disease stage 3. She is also moderately anemic and anemia workup will be initiated. Thank you for allowing me to participate in her care. Dictated by... Harinder Thompson M.D. Mariah TD: 05/14/2017 06:02 JOB #: [id number] Unit #: [id number] #: [id number] Patient: JODIE HERRING CONSULTATION REPORT Page 1 of 1 X Harinder Thompson MD CONSULTATION REPORT
--- NOTE | ~2017-05-10 | CO ---
Unit #: [id number] #: [id number] Patient: DELONTE HERRING [id number] [address] [place], [place] [address] [id number] I MR#: [id number] NAME: DELONTE HERRING ROOM: 557 Age: 81 Sex: F Admission Date: 05/10/2017 : 1935 Attending Physician: Shira Sandhu M.D. Primary Care Physician: Sofiya Flowers M.D. Consultation Date: 05/11/2017 CONSULTATION REPORT Ms. Herring is a 81-year-old white female who is admitted with increasing shortness of breath over the last few weeks. She has a history of atrial fibrillation, diastolic dysfunction, CHF, hypertension, diabetes, hypoxemic, hypercarbic, respiratory failure, possible JULIEN, possible obesity, hypoventilation syndrome, possible COPD. She presented with increasing shortness of breath. Chest x-ray showed a new left lower lobe density consistent with effusion and possible infiltrate. She had had no chest pain, cough, fever, or chills. PAST MEDICAL HISTORY Significant for coronary artery disease, status post angioplasty, history of diastolic cardiac dysfunction, history of pulmonary hypertension with right ventricular systolic pressure of 47, history of chronic AFib maintained on Coumadin. History of chronic kidney disease, stage 3, hypertension, hyperlipidemia, diabetes, chronic anemia, non-Hodgkin's lymphoma, morbid obesity. PAST SURGICAL HISTORY Cholecystectomy, tonsillectomy, hysterectomy, cataract extraction. SOCIAL HISTORY Reformed smoker. No alcohol or illicit drugs. FAMILY HISTORY Positive for coronary artery disease. ALLERGIES Macrolide antibiotics, prednisone, and simvastatin. HOME MEDICATIONS Pepcid, Coumadin, calcium, Bumex, Januvia, glipizide, Lipitor, Imdur, hydrocodone/APAP, Lopressor, melatonin, Claritin, Combivent, Ferrex, Symbicort, potassium, NovoLog, Lorcet, Mucinex. REVIEW OF SYSTEMS Otherwise negative ten point system. PHYSICAL EXAMINATION GENERAL: White female, obese, no distress. VITAL SIGNS: Blood pressure is 110/50, pulse is 90, respiratory rate is 20, and afebrile. HEENT: Normocephalic and atraumatic. Pupils equal, round, and reactive. Sclerae are nonicteric. Nasal passage is patent. Posterior pharynx crowded. Unit #: [id number] #: [id number] Patient: DELONTE HERRING NECK: Supple. Trachea midline. No cervical or supraclavicular lymphadenopathy. LUNGS: Revealed diminished breath sounds bilaterally. Crackles in the left base. CARDIAC: Irregular irregular rhythm. I do not appreciate murmur, rub or gallop. ABDOMEN: Nontender. Bowel sounds present. No hepatosplenomegaly. EXTREMITIES: Without clubbing, cyanosis or edema. NEUROLOGIC: Awake and oriented x3. Cranial nerves grossly intact. Muscle strength symmetric bilaterally. Affect calm. SKIN: Warm and dry. DIAGNOSTIC STUDIES LABORATORY STUDIES: Chest x-ray is noted. BMP is significant for creatinine of 1.6. CO2 of 40. BNP of 274. Procalcitonin 0.06. PT/INR 1.6. White count 4,700, hematocrit 28.7, platelet count normal. IMPRESSION 1. Dyspnea. 2. Presumed chronic obstructive pulmonary disease with hypoxemic hypercarbic respiratory failure. 3. Possible JULIEN with obesity, hyperventilation syndrome possible. 4. New left infiltrate/effusion. 5. Pulmonary hypertension. 6. Chronic diastolic dysfunction. 7. Coronary artery disease. 8. AFib, subtherapeutic ProTime. PLAN Will check arterial blood gases. Adjust the CT scan to evaluate effusion/infiltrate. Consider V/Q lung scan to rule out PE given subtherapeutic ProTime. Administer O2 to maintain adequate saturations, continue current pulmonary medicines. Further recommendations pending this. Dictated by... Marc Lozano M.D. LITTLE/sybil TD: 05/14/2017 07:22 JOB #: [id number] CONSULTATION REPORT Page 1 of 1 X Marc Lozano MD X CONSULTATION REPORT
--- NOTE | ~2017-05-10 | CO ---
Unit #: [id number] #: [id number] Patient: DELONTE HERRING [id number] [address] [place], [place] [address] [id number] I MR#: [id number] NAME: DELONTE HERRING. ROOM: 318 Age: 81 Sex: F Admission Date: 05/10/2017 : 1935 Attending Physician: Shira Sandhu M.D. Primary Care Physician: Sofiya Flowers M.D. Requesting Physician: Shira Sandhu M.D. Consultation Date: 05/11/2017 CONSULTATION REPORT REASON FOR CONSULT Medical management. HISTORY This 81-year-old female was admitted to the cardiology service for shortness of breath. She has a history of atrial fibrillation, possible coronary artery disease with normal LV function, chronic diastolic congestive heart failure, hypertension and diabetes mellitus. She states that, over the past few days at [facility], she has been increasingly short of breath, perhaps worse with exertion. Notes an intermittent cough, occasionally productive of yellow sputum but no fever, sweats, chills. No chest pain with the above. Denies any increased lower extremity swelling or orthopnea. She was seen in this emergency department last evening, was noted to have a modestly elevated BNP, and a call was made to cardiology, who had admitted the patient last month. The patient was treated with 20 mg of IV Lasix. She looks to be fairly comfortable. On examination, she does have crackles in the bases bilaterally and 1+ pedal edema. Labs are notable for chronic kidney disease, slightly worsening normocytic anemia and a mildly elevated BNP. Chest x-ray shows ghwon-tv-irojnvjv left lower lobe pleural effusion with infiltrates or atelectasis in the lower bases. The patient was last admitted to this facility 04/06 through 04/20/2017 for acute hypoxic respiratory failure requiring intubation. She was thought to have atypical pneumonia, was diagnosed with an E-coli urinary tract infection and had exacerbation of her COPD. An echocardiogram 04/07/2017 - Ejection fraction, I am not sure if this was 50% or 60%, right ventricular systolic pressure of 47 mmHg. Mild mitral regurgitation, mild tricuspid regurgitation and, I believe, moderate aortic stenosis. PAST MEDICAL HISTORY 1. Coronary artery disease with possible angioplasty in the past. Again, previous echo showed ejection fraction either 50% or 60% with wvos-[id number] valvular heart disease and right ventricular systolic pressure of 40 to 50 mmHg. 2. Permanent atrial fibrillation, on anticoagulation with Coumadin. 3. Chronic diastolic congestive heart failure. 4. Hypertension. 5. Hyperlipidemia. 6. Adult-onset diabetes mellitus. 7. Hepatitis B. Unit #: [id number] #: [id number] Patient: DELONTE HERRING 8. Anemia. The patient has a history of vitamin B deficiency, although recent iron, B12, folic acid stores checked last month were normal. 9. Oral varices. 10. Non-Hodgkin lymphoma, treated in 2011 with rituximab. 11. Possible COPD. 12. Cholecystectomy. 13. Tonsillectomy. 14. Hysterectomy. 15. Cataract extraction. JAIL MEDICATIONS 1. Lipitor 10 mg daily. 2. Bumex 2 mg t.i.d. 3. Calcium 1,500 mg b.i.d. 4. Ciprodex 2 drops right ear b.i.d. 5. Coumadin appears to be 2 mg daily. 6. Pepcid 20 mg b.i.d. 7. Iron plus B12 b.i.d. 8. Glipizide 10 mg daily. 9. DuoNeb t.i.d. p.r.n. and q.i.d. 10. Imdur 30 mg daily. 11. Januvia 50 mg daily. 12. Claritin 10 mg daily. 13. Melatonin 3 mg q.h.s. 14. Lopressor 50 mg b.i.d. 15. Mucinex b.i.d. 16. Skin care lotions. 17. [place] 5/325 mg q.6 hours as needed. 18. High dose sliding scale NovoLog. 19. Potassium 20 mEq t.i.d. 20. Symbicort 160/4.5 one puff b.i.d. 21. Tylenol p.r.n. FAMILY HISTORY Negative for coronary artery disease. SOCIAL HISTORY The patient lives at [facility]. Stopped smoking many years ago. Does not drink alcohol. REVIEW OF SYSTEMS Review of systems is notable for episodes of shortness of breath, right ear pain, atrial fibrillation, diabetes, hypertension, non-Hodgkin lymphoma, above-mentioned surgeries. All other systems were reviewed with the patient and are negative. PHYSICAL GENERAL: A pleasant, obese, 81-year-old female who currently is in no acute distress. VITAL SIGNS: Temperature is 97.8, pulse 93, respirations 23, blood pressure 139/75, O2 saturation 100% on 3 liters of oxygen, respirations 22. HEENT: Eyes-PERRLA. Extraocular muscles are intact. Pharynx is benign with poor dentition. NECK: Supple without adenopathy or thyromegaly. I believe the patient does have an element of JVD. CHEST: With crackles at the bases bilaterally. CARDIAC: Irregular, S1, S2 without definite murmur that I can auscultate. ABDOMEN: Bowel sounds are present, obese, nontender. No Unit #: [id number] #: [id number] Patient: DELONTE HERRING hepatosplenomegaly or masses. EXTREMITIES: With 1+ bilateral pedal edema. Pedal pulses are diminished. No ulcers on the feet. NEUROLOGIC: The patient is awake, alert, oriented. Cranial nerves are intact. There is equal strength throughout but is generally weak on exam. DIAGNOSTIC STUDIES LABS: Hematocrit is 28.5, down from 31.2 in March. Normal MCV, white count and platelet count. INR slightly subtherapeutic at 1.8. SMA-12 - BUN is 34, which is improved from before. Creatinine is 1.4, which is also improved. Chloride 91, CO2 43, calcium 7.4, albumin 3.2. BNP is 274. Cardiac markers are negative. IMAGING: Chest x-ray - Stable cardiomegaly. Sgpbh-bv-ivvtckip left lower lobe pleural effusion with atelectasis versus infiltrates at the right base and above the area, I believe, of pleural effusion. CARDIOVASCULAR: EKG - Atrial fibrillation, rate controlled at 96. ASSESSMENT 1. Dyspnea, rule out congestive heart failure, although chest x-ray is not typical for congestive heart failure. This does show a cbtf-ij-eomynhkp pleural effusion on the left with atelectasis versus infiltrate at the bases. She has had a mild cough but no fever, sweats or chills. Denies any chest pain with the above. Does have a history of underlying COPD. 2. Coronary artery disease with ejection fraction of 50% or 60% and history of diastolic dysfunction. Right ventricular systolic pressures of 47 mmHg and muqh-sk-pfbwnatr valvular heart disease. 3. Chronic atrial fibrillation with mildly subtherapeutic INR. 4. Adult-onset diabetes mellitus. 5. Essential hypertension. 6. COPD. 7. Normocytic anemia, slightly worse than before. Recent B12, folic acid and iron stores were normal last month. 8. Hepatitis B. 9. Treated non-Hodgkin lymphoma in 2011. 10. Chronic kidney disease. PLANS 1. Continue glipizide sliding scale insulin and Januvia. 2. Daily PT and INR, and will increase Coumadin to 2.5. 3. Check procalcitonin level in the morning. 4. Urinalysis. 5. Check Dopplers of the legs in the morning. 6. Consider pulmonary consultation if symptoms are not improving. 7. Hemoccult. Thank you very much for this consult. Dictated by... Bouchra Loyola M.D. AML/db Unit #: [id number] #: [id number] Patient: DELONTE HERRING TD: 05/11/2017 08:29 JOB #: [id number] CONSULTATION REPORT Page 1 of 1 X Bouchra Loyola MD X CONSULTATION REPORT
--- NOTE | ~2017-05-10 | US84 ---
[id number] [facility] [address] [place], [place] [address] [id number] MR#: [id number] Acc #: [id number] NAME: DELONTE HERRING : 1935 SEX: F STUDY DATE/TIME: 05/11/2017 9:09 UNIT: C3A PCU ROOM: 318 STUDY DESCRIPTION: US LE Veins Complete Uziel Stdy Attending Physician: Shira Sandhu M.D. Ordering Physician: Bouchra Loyola M.D. Primary Care Physician: Sofiya Flowers M.D. MEDICAL IMAGING REPORT This report is preliminary unless electronic signature is present EXAM Bilateral lower extremity venous duplex 05/11/2017 HISTORY Bilateral lower extremity edema, pedal edema for 3 days with shortness of breath, evaluate for deep vein thrombosis. TECHNIQUE Venous ultrasound examination of both lower extremities was performed using grayscale, spectral Doppler and color flow Doppler imaging. FINDINGS The examination is negative. There is no evidence of deep venous thrombus from the groin to the lower calf bilaterally. Visualized greater saphenous veins are also patent. IMPRESSION Negative examination. No evidence of lower extremity deep venous thrombosis. Dictated by... Gelacio Reich M.D. THIS IS AN ELECTRONICALLY VERIFIED REPORT Gleacio Reich M.D. at 05/11/2017 5:05 PM TAMMI/petar TD: 05/11/2017 13:01 JOB #: [id number] MEDICAL IMAGING REPORT Page 1 of 1 COPY
[~2017-05-10 16:05] MED LIST changes: +HYDROCODON-ACE1 EAC7 PO; +LISINOPRIL10 MG PO; +SYMBICORT INH
[2017-05-10 17:11] LABS: POC - CKMB <1.0 ng/mL (0.0-7.9); POC - TROPONIN <0.05 ng/mL (<=0.05)
[2017-05-10 17:29] LABS: BASOPHIL# 0.1 X10e3 (0-0.3); BASOPHIL% 1.8 % (0-2.5); EOSINOPHIL# 0.1 X10e3 (0-0.7); EOSINOPHIL% 2.7 % (0.0-7.0); HEMATOCRIT 28.5 % (35.0-45.0); HEMOGLOBIN 8.7 gm/dL (12.0-16.0); LYMPHOCYTE# 1.2 X10e3 (1.0-3.5); LYMPHOCYTE% 24.5 % (17.0-45.0); MEAN CELL VOLUME 90.4 FL (83-96); MEAN CORPUSCULAR HEMOGLOBIN 27.7 PG (28-34); MEAN CORPUSCULAR HGB CONC 30.6 g/dL (30-36); MEAN PLATELET VOLUME 7.2 FL (6.5-11.5); MONOCYTE% 19.5 % (3.0-12.0); NEUTROPHIL# 2.5 X10e3 (1.5-7.1); NEUTROPHIL% 51.5 % (40-75); PLATELET COUNT 198 X10e3 (140-420); RED BLOOD COUNT 3.15 X10e (3.90-5.30); RED CELL DISTRIBUTION WIDTH 18.2 % (11.0-15.5); WHITE BLOOD COUNT 4.9 X10e3 (4.0-10.5)
[2017-05-10 17:45] LABS: DIFF IND NO
[2017-05-10 18:04] LABS: ALBUMIN SERUM 3.2 g/dL (3.5-5.0); BILIRUBIN, DIRECT 0.1 mg/dL (0.0-0.2); BILIRUBIN,INDIRECT 0.3 mg/dL (0.0-0.9); BILIRUBIN,TOTAL 0.4 mg/dL (0.2-2.0); CALCIUM SERUM 7.4 mg/dL (8.4-10.2); CREATININE SERUM 1.4 mg/dL (0.6-1.4); GLOM FILT RATE Estimated 35.6 mL/min (>60); POTASSIUM 4.6 mmol/L (3.5-5.1); PROTEIN TOTAL SERUM 6.3 g/dL (6.0-8.3)
[2017-05-10 18:52] LABS: POC - CKMB 1.4 ng/mL (0.0-7.9); POC - TROPONIN <0.05 ng/mL (<=0.05)
[2017-05-10 19:17] LABS: INR 1.8; PARTIAL THROMBOPLASTIN TIME 30.4 SECONDS (23.5-31.3); PROTHROMBIN TIME (PATIENT) 19.3 SECONDS (10.0-11.7)
[2017-05-10] MEDS ORDERED: POTASSIUM CHLO20 ME1 PO (20:53)
[2017-05-10] MEDS ORDERED: NOVOLOG100 UNITS/ SUBQ (20:54)
[2017-05-10] MEDS ORDERED: LORCET 5-325 M1 EACH PO (20:55)
[2017-05-10] MEDS ORDERED: LOPRESSOR PO (20:56)
[2017-05-10] MEDS ORDERED: MUCINEX1200 MG PO (20:56)
[2017-05-10] MEDS ORDERED: CLARITIN10 M3 PO (20:57)
[2017-05-10] MEDS ORDERED: MELATIN3 MG PO (20:57)
[2017-05-10] MEDS ORDERED: FERREX 150 PLU1 EACH PO (21:03)
[2017-05-10] MEDS ORDERED: COMBIVENT U/D3 M1 INH (21:03)
[2017-05-10] MEDS ORDERED: COUMADIN PO (21:04)
[2017-05-10] MEDS ORDERED: FAMOTIDINE20 MG PO (21:04)
[2017-05-10] MEDS ORDERED: BUMEX2 MG PO (21:24)
[2017-05-10] MEDS ORDERED: CALCIUM CARBON500 M2 PO (21:24)
[2017-05-11 05:12] LABS: BASOPHIL# 0.1 X10e3 (0-0.3); BASOPHIL% 1.3 % (0-2.5); EOSINOPHIL# 0.2 X10e3 (0-0.7); EOSINOPHIL% 3.8 % (0.0-7.0); HEMATOCRIT 28.7 % (35.0-45.0); HEMOGLOBIN 8.8 gm/dL (12.0-16.0); LYMPHOCYTE# 1.3 X10e3 (1.0-3.5); LYMPHOCYTE% 28.1 % (17.0-45.0); MEAN CELL VOLUME 90.8 FL (83-96); MEAN CORPUSCULAR HEMOGLOBIN 27.8 PG (28-34); MEAN CORPUSCULAR HGB CONC 30.6 g/dL (30-36); MEAN PLATELET VOLUME 7.1 FL (6.5-11.5); MONOCYTE# 0.9 X10e3 (0-1.0); MONOCYTE% 18.6 % (3.0-12.0); NEUTROPHIL# 2.3 X10e3 (1.5-7.1); NEUTROPHIL% 48.2 % (40-75); PLATELET COUNT 182 X10e3 (140-420); RED BLOOD COUNT 3.17 X10e (3.90-5.30); RED CELL DISTRIBUTION WIDTH 18.2 % (11.0-15.5); WHITE BLOOD COUNT 4.7 X10e3 (4.0-10.5)
[2017-05-11 05:26] LABS: DIFF IND NO
[2017-05-11 06:05] LABS: INR 1.6; PROTHROMBIN TIME (PATIENT) 17.7 SECONDS (10.0-11.7)
[2017-05-11 06:14] LABS: URINE SOURCE CATH
[2017-05-11 06:24] LABS: URINE APPEARANCE CLEAR; URINE BILIRUBIN NEG (NEG); URINE BLOOD NEG (NEG); URINE COLOR YELLOW; URINE GLUCOSE NEG (NEG); URINE KETONE NEG (NEG); URINE LEUKOCYTE ESTERASE 3+ (NEG); URINE NITRATE NEG (NEG); URINE PROTEIN NEG (NEG); URINE SPECIFIC GRAVITY 1.013 (1.003-1.035); URINE UROBILINOGEN 0.2 MG/DL (NEG)
[2017-05-11 06:27] LABS: URINE BACTERIA AUWI 1+ (NEGATIVE); UWBCS1 AUWI 25-50 (0-5)
[2017-05-11 06:37] LABS: BUN/CREATININE RATIO 21.25; CALCIUM SERUM 7.8 mg/dL (8.4-10.2); CREATININE SERUM 1.6 mg/dL (0.6-1.4); GLOM FILT RATE Estimated 30.3 mL/min (>60); POTASSIUM 4.5 mmol/L (3.5-5.1)
[2017-05-11 06:47] LABS: URINE AMORPHOUS SEDIMENT AMORP URATES; URINE GRANULAR CAST 0-2 /[HPF]; URINE SQUAMOUS EPITHELIAL CELL OCC /[HPF]
[2017-05-11 15:04] LABS: BF TOTAL NUCLEATED CELL COUNT 84 CMM (0-100); BODY FLUID APPEARANCE HAZY; BODY FLUID RBC <10000 CMM; BODY FLUID SOURCE PLEURAL
[2017-05-11 15:39] LABS: PROTEIN, BODY FLUID 1.2 gm/dL
[2017-05-11 16:51] LABS: ARTERIAL BLD GAS O2 SATURATION 84.1 % (90.0-100.0); ARTERIAL BLOOD GAS CARBOXY HB 1.6 %sat (0.0-9.0); ARTERIAL BLOOD GAS HCO3 42.5 mmol/L; ARTERIAL BLOOD GAS MET HB 0.6 %sat (0.0-2.0); ARTERIAL BLOOD GAS pH 7.339 (7.350-7.450)
[2017-05-11 16:54] LABS: ARTERIAL BLOOD GAS ART SITE LEFT BRACHIAL; ARTERIAL BLOOD GAS PO2 53.1 mmHg (80.0-100); ARTERIAL DRAW? YES
[2017-05-12 05:23] LABS: INR 1.5; PROTHROMBIN TIME (PATIENT) 16.1 SECONDS (10.0-11.7)
[2017-05-12 05:34] LABS: HEMATOCRIT 31.3 % (35.0-45.0); HEMOGLOBIN 9.5 gm/dL (12.0-16.0); MEAN CELL VOLUME 91.3 FL (83-96); MEAN CORPUSCULAR HEMOGLOBIN 27.7 PG (28-34); MEAN CORPUSCULAR HGB CONC 30.3 g/dL (30-36); MEAN PLATELET VOLUME 7.1 FL (6.5-11.5); RED BLOOD COUNT 3.43 X10e (3.90-5.30); RED CELL DISTRIBUTION WIDTH 18.3 % (11.0-15.5); WHITE BLOOD COUNT 6.8 X10e3 (4.0-10.5)
[2017-05-12 05:44] LABS: BUN/CREATININE RATIO 21.33; CALCIUM SERUM 8.1 mg/dL (8.4-10.2); CREATININE SERUM 1.5 mg/dL (0.6-1.4); GLOM FILT RATE Estimated 32.8 mL/min (>60); POTASSIUM 5.1 mmol/L (3.5-5.1)
[2017-05-12 07:19] LABS: ARTERIAL BLD GAS O2 SATURATION 96.7 % (90.0-100.0); ARTERIAL BLOOD GAS CARBOXY HB 1.2 %sat (0.0-9.0); ARTERIAL BLOOD GAS HCO3 43.3 mmol/L; ARTERIAL BLOOD GAS MET HB 0.6 %sat (0.0-2.0); ARTERIAL BLOOD GAS pH 7.297 (7.350-7.450)
[2017-05-12 07:22] LABS: ARTERIAL BLOOD GAS PCO2 88.6 mmHg (35.0-45.0)
[2017-05-12 07:23] LABS: ARTERIAL BLOOD GAS ART SITE LEFT RADIAL; ARTERIAL BLOOD GAS DELIVERY BIPAP; ARTERIAL DRAW? YES
[2017-05-12 10:56] LABS: ARTERIAL BLD GAS O2 SATURATION 95.5 % (90.0-100.0); ARTERIAL BLOOD GAS CARBOXY HB 1.2 %sat (0.0-9.0); ARTERIAL BLOOD GAS HCO3 44.5 mmol/L; ARTERIAL BLOOD GAS MET HB 0.7 %sat (0.0-2.0); ARTERIAL BLOOD GAS PO2 87.8 mmHg (80.0-100); ARTERIAL BLOOD GAS pH 7.421 (7.350-7.450)
[2017-05-12 10:57] LABS: ARTERIAL BLOOD GAS PCO2 68.4 mmHg (35.0-45.0)
[2017-05-12 10:58] LABS: ARTERIAL BLOOD GAS ART SITE LEFT RADIAL; ARTERIAL BLOOD GAS DELIVERY BIPAP 20/5; ARTERIAL DRAW? YES
[2017-05-13 04:15] LABS: BASOPHIL# 0.1 X10e3 (0-0.3); BASOPHIL% 2.1 % (0-2.5); EOSINOPHIL# 0.1 X10e3 (0-0.7); EOSINOPHIL% 3.2 % (0.0-7.0); HEMATOCRIT 25.5 % (35.0-45.0); HEMOGLOBIN 7.9 gm/dL (12.0-16.0); LYMPHOCYTE# 1.4 X10e3 (1.0-3.5); LYMPHOCYTE% 29.6 % (17.0-45.0); MEAN CELL VOLUME 89.9 FL (83-96); MEAN CORPUSCULAR HEMOGLOBIN 27.8 PG (28-34); MEAN CORPUSCULAR HGB CONC 30.9 g/dL (30-36); MEAN PLATELET VOLUME 7.1 FL (6.5-11.5); MONOCYTE# 0.8 X10e3 (0-1.0); MONOCYTE% 17.8 % (3.0-12.0); NEUTROPHIL# 2.2 X10e3 (1.5-7.1); NEUTROPHIL% 47.3 % (40-75); PLATELET COUNT 166 X10e3 (140-420); RED BLOOD COUNT 2.83 X10e (3.90-5.30); RED CELL DISTRIBUTION WIDTH 18.5 % (11.0-15.5); WHITE BLOOD COUNT 4.6 X10e3 (4.0-10.5)
[2017-05-13 04:16] LABS: DIFF IND YES
[2017-05-13 04:24] LABS: INR 1.4
[2017-05-13 04:28] LABS: ARTERIAL BLD GAS O2 SATURATION 97.5 % (90.0-100.0); ARTERIAL BLOOD GAS CARBOXY HB 1.1 %sat (0.0-9.0); ARTERIAL BLOOD GAS HCO3 43.5 mmol/L; ARTERIAL BLOOD GAS MET HB 0.9 %sat (0.0-2.0); ARTERIAL BLOOD GAS pH 7.421 (7.350-7.450)
[2017-05-13 04:31] LABS: ARTERIAL BLOOD GAS ALLEN TEST NORMAL; ARTERIAL BLOOD GAS ART SITE RIGHT RADIAL; ARTERIAL BLOOD GAS DELIVERY BIPAP 20/5; ARTERIAL DRAW? YES
[2017-05-13 04:32] LABS: PLATELET ESTIMATE NORMAL (NORMAL); STOMATOCYTE PRESENT
[2017-05-13 04:33] LABS: ANISOCYTOSIS MOD; BUN/CREATININE RATIO 22.66; CALCIUM SERUM 7.3 mg/dL (8.4-10.2); CREATININE SERUM 1.5 mg/dL (0.6-1.4); GLOM FILT RATE Estimated 32.8 mL/min (>60); MICROCYTOSIS MOD; POTASSIUM 5.2 mmol/L (3.5-5.1)
[2017-05-13 08:55] LABS: BASOPHIL# 0.1 X10e3 (0-0.3); BASOPHIL% 1.4 % (0-2.5); EOSINOPHIL# 0.2 X10e3 (0-0.7); EOSINOPHIL% 4.1 % (0.0-7.0); HEMATOCRIT 26.2 % (35.0-45.0); HEMOGLOBIN 8.4 gm/dL (12.0-16.0); LYMPHOCYTE# 1.5 X10e3 (1.0-3.5); LYMPHOCYTE% 30.5 % (17.0-45.0); MEAN CORPUSCULAR HGB CONC 32.2 g/dL (30-36); MEAN PLATELET VOLUME 7.3 FL (6.5-11.5); MONOCYTE# 0.8 X10e3 (0-1.0); MONOCYTE% 17.2 % (3.0-12.0); NEUTROPHIL# 2.3 X10e3 (1.5-7.1); NEUTROPHIL% 46.8 % (40-75); PLATELET COUNT 168 X10e3 (140-420); RED BLOOD COUNT 2.91 X10e (3.90-5.30); RED CELL DISTRIBUTION WIDTH 18.5 % (11.0-15.5); WHITE BLOOD COUNT 4.9 X10e3 (4.0-10.5)
[2017-05-13 08:59] LABS: DIFF IND NO
[2017-05-14 07:14] LABS: BASOPHIL# 0.1 X10e3 (0-0.3); BASOPHIL% 2.1 % (0-2.5); EOSINOPHIL# 0.2 X10e3 (0-0.7); EOSINOPHIL% 3.2 % (0.0-7.0); HEMATOCRIT 27.5 % (35.0-45.0); HEMOGLOBIN 8.4 gm/dL (12.0-16.0); LYMPHOCYTE# 1.2 X10e3 (1.0-3.5); LYMPHOCYTE% 23.5 % (17.0-45.0); MEAN CELL VOLUME 90.8 FL (83-96); MEAN CORPUSCULAR HEMOGLOBIN 27.7 PG (28-34); MEAN CORPUSCULAR HGB CONC 30.5 g/dL (30-36); MONOCYTE# 0.9 X10e3 (0-1.0); MONOCYTE% 16.6 % (3.0-12.0); NEUTROPHIL# 2.8 X10e3 (1.5-7.1); NEUTROPHIL% 54.6 % (40-75); PLATELET COUNT 168 X10e3 (140-420); RED BLOOD COUNT 3.03 X10e (3.90-5.30); RED CELL DISTRIBUTION WIDTH 18.2 % (11.0-15.5); WHITE BLOOD COUNT 5.2 X10e3 (4.0-10.5)
[2017-05-14 07:21] LABS: DIFF IND NO
[2017-05-14 07:22] LABS: INR 1.2; PROTHROMBIN TIME (PATIENT) 12.9 SECONDS (10.0-11.7)
[2017-05-14 07:56] LABS: BUN/CREATININE RATIO 22.94; CALCIUM SERUM 7.4 mg/dL (8.4-10.2); CREATININE SERUM 1.7 mg/dL (0.6-1.4); GLOM FILT RATE Estimated 28.2 mL/min (>60); POTASSIUM 5.3 mmol/L (3.5-5.1)
[2017-05-15 04:49] LABS: INR 1.2; PROTHROMBIN TIME (PATIENT) 13.2 SECONDS (10.0-11.7)
[2017-05-15 15:13] LABS: CALCIUM SERUM 7.3 mg/dL (8.4-10.2); CREATININE SERUM 1.5 mg/dL (0.6-1.4); GLOM FILT RATE Estimated 32.8 mL/min (>60); POTASSIUM 4.2 mmol/L (3.5-5.1)
== END 2017-05-15 18:36 | DRG 291 ==
LOC: CED 16:05 → CEDOF 21:32 → C5B 21:32 → C3A PCU 22:41 → CICCU3 05-12 09:52 → C5B 05-12 17:56
PROVIDERS: Emergency Medicine; Internal Medicine; Internal Medicine Cardiovascular Disease; Psychiatry & Neurology Behavioral Neurology & Neuropsychiatry
PROC: 0W9B3ZZ Drainage of Left Pleural Cavity, Percutaneous Approach (ICD-10-PCS; principal; 2017-05-11)
DX: I13.0 Hypertensive heart and chronic kidney disease with heart failure and stage 1 through stage 4 chronic kidney disease, or unspecified chronic kidney disease (principal); I50.33 Acute on chronic diastolic (congestive) heart failure; J96.01 Acute respiratory failure with hypoxia; J96.02 Acute respiratory failure with hypercapnia; J91.8 Pleural effusion in other conditions classified elsewhere; E11.22 Type 2 diabetes mellitus with diabetic chronic kidney disease; Z68.41 Body mass index [BMI] 40.0-44.9, adult; B19.10 Unspecified viral hepatitis B without hepatic coma; N39.0 Urinary tract infection, site not specified; N18.3 Chronic kidney disease, stage 3 (moderate); I27.2 Other secondary pulmonary hypertension; I48.2 Chronic atrial fibrillation; Z79.01 Long term (current) use of anticoagulants; Z85.72 Personal history of non-Hodgkin lymphomas; I25.10 Atherosclerotic heart disease of native coronary artery without angina pectoris; Z95.5 Presence of coronary angioplasty implant and graft; E78.5 Hyperlipidemia, unspecified; Z79.4 Long term (current) use of insulin; D53.9 Nutritional anemia, unspecified; E66.01 Morbid (severe) obesity due to excess calories; Z87.891 Personal history of nicotine dependence; Z98.49 Cataract extraction status, unspecified eye; J44.9 Chronic obstructive pulmonary disease, unspecified; G47.33 Obstructive sleep apnea (adult) (pediatric); Z80.1 Family history of malignant neoplasm of trachea, bronchus and lung; B96.1 Klebsiella pneumoniae [K. pneumoniae] as the cause of diseases classified elsewhere; Z88.1 Allergy status to other antibiotic agents; Z88.8 Allergy status to other drugs, medicaments and biological substances; Z90.49 Acquired absence of other specified parts of digestive tract; Z90.710 Acquired absence of both cervix and uterus
CPT/HCPCS: 36415; 36600; 71010; 71250; 80048; 80076; 81003; 82308; 82553; 82803; 82945; 82947; 83615; 83880; 84157; 84484; 85025; 85027; 85610; 85730; 86850; 86900; 86901; 87086; 87088; 87186; 88108; 88184; 88185; 88305; 89051; 93005; 93970; 94640; 94660; 94664; 94760; 94761; 97110; 97116; 97163; 97166; 99285; G8978-GP; G8979-GP; G8980-GP; G8987-GO; G8988-GO; J0696; J1650; J1815; J1940; J3490

== ENCOUNTER 2017-05-21 07:17 | Inpatient (IN) | payer MEDICARE, OTHER ==
[~2017-05-21] VITALS: Ht 157.5 cm; Wt 111.8 kg
--- NOTE | ~2017-05-21 | EKG ---
PATIENT: DELONTE HERRING UNIT #: [id number] Ventricular Rate: 98 BPM Atrial Rate: 227 BPM QRS Duration: 86 ms Q-T Interval: 342 ms QTC Calculation(Bezet): 436 ms Calculated R [place]: 12 degrees Calculated T [place]: 56 degrees Diagnosis Line: Atrial fibrillation Diagnosis Line: Abnormal ECG Diagnosis Line: When compared with ECG of 10-MAY-2017 16:38, Diagnosis Line: No significant change was found Diagnosis Line: Confirmed by WILLIS OAKLEY MD ([id number]) on Diagnosis Line: 05/22/2017 5:02:52 PM INTERPRETING MD: CELE PEARCE
--- NOTE | ~2017-05-21 | HP ---
Unit #: [id number] #: [id number] Patient: DELONTE HERRING [id number] [address] [place], [place] [address] [id number] MR#: [id number] NAME: DELONTE HERRING. ROOM: 42301 Age: 81 Sex: F Admission Date: 05/21/2017 : 1935 Attending Physician: Ned Toney M.D. Primary Care Physician: Sofiya Flowers M.D. HISTORY AND PHYSICAL CHIEF COMPLAINT Shortness of breath. HISTORY OF PRESENT ILLNESS The patient is a 81-year-old female with a history of atrial fibrillation, coronary artery disease, chronic diastolic congestive heart failure, and pleural effusion likely transudative secondary to CHF, brought to the emergency room from rehab with shortness of breath. The patient is a poor historian, and the history is obtained by speaking with the patient's sister at the bedside. The patient was found to be in respiratory distress at the time of arrival with saturations in the 80s. The patient had an ABG at the time of admission with a pH of 7.1, PCO2 unable to measure, and PO2 of 74.8. The patient has been started on BiPAP. The patient had a prolonged stay from April 06 through April 20, and then patient had a recent discharge from the hospital on May 15 with acute hypercapnic, hypoxic respiratory failure and pleural effusion, status post left thoracocentesis. The patient is a little confused and does not know why she is in the hospital. She denies any productive cough. The patient's sister stated that patient has had problems with the oxygen tank that was frozen at rehab and concerned that patient was not getting oxygen at rehab. The patient is being admitted for the above reasons. PAST MEDICAL HISTORY 1. Coronary artery disease. 2. Permanent atrial fibrillation. 3. Chronic diastolic congestive heart failure. 4. Acute on chronic hypercapnic, hypoxic respiratory failure. 5. Pleural effusion, status post thoracocentesis. 6. Pulmonary hypertension. 7. Non-Hodgkin's lymphoma, status post chemo. 8. Hypertension. 9. Hyperlipidemia. 10. Diabetes mellitus. 11. Chronic anemia. PAST SURGICAL HISTORY Left thoracocentesis. HOME MEDICATIONS 1. Januvia. 2. Glucotrol. 3. Lipitor. 4. Imdur. Unit #: [id number] #: [id number] Patient: DELONTE HERRING 5. Hydrocodone. 6. Symbicort. 7. Potassium chloride. 8. NovoLog. 9. Mucinex. 10. Lopressor. 11. Melatonin. 12. Claritin. 13. Combivent. 14. Ferrex. 15. Famotidine. 16. Coumadin. 17. Calcium. 18. Bumex. ALLERGIES Macrolide, niacin, prednisone, simvastatin, Advair, and fluticasone. SOCIAL HISTORY The patient lives at [facility]. She stopped smoking many years ago. No history of alcohol. FAMILY HISTORY Negative for coronary artery disease. REVIEW OF SYSTEMS Positive for shortness of breath, positive for confusion. Other systems reviewed and negative. Only positive findings are described above. PHYSICAL EXAMINATION GENERAL: Patient is lying in bed not in acute distress. VITAL SIGNS: Temperature 98.2 rectally, pulse 95, respiratory rate 30, blood pressure 129/87, and saturating 80% on room air. HEENT: Head atraumatic, normocephalic. Pupils equal, round, and reactive to light and accommodation. NECK: Positive for JVP. LUNGS: Decreased air entry at the bases. Positive for rales. HEART: Irregular rate and rhythm. Positive for murmur. ABDOMEN: Soft. EXTREMITIES: Positive for trace edema. NEUROLOGIC: Awake, alert, and oriented x1. DIAGNOSTIC STUDIES LABORATORY: Sodium 136, potassium 5, chloride 88, bicarb 40, glucose 239, BUN 35, creatinine 1.7, and calcium 8.8. Lactic acid is 2. ABG shows a pH of 7.2, PCO2 of 109, PO2 of 66.4, bicarb 44.1, and oxygen saturation 89.2. WBC 13.2, hemoglobin 9.7, hematocrit 32.8, and platelets 190,000. BNP is 406. IMAGING: Chest x-ray shows no new dense consolidation and no significant change from May 13, 2017. Persistent vascular congestion, interstitial alveolar prominence, and bibasilar opacity. ASSESSMENT 1. Acute on chronic hypercapnic, hypoxic respiratory failure. 2. Acute on chronic diastolic heart failure. 3. Sepsis. 4. Atrial fibrillation. Unit #: [id number] #: [id number] Patient: DELONTE HERRING PLAN Admit patient as inpatient. Patient will be in the ICU with BiPAP. Wean off the vent per protocol. Continue the sepsis protocol. Continue with IV antibiotics with Zosyn. Add procalcitonin level. Pulmonary consult with Dr. Lozano and Cardiology consult with [facility]. Continue with (1) . Long-term prognosis is guarded. Further recommendations will follow as more lab results are available. Dictated by Elina Delgado TD: 05/21/2017 15:26 JOB #: [id number] HISTORY AND PHYSICAL Page 1 of 1 X NED TONEY MD X HISTORY AND PHYSICAL
--- NOTE | ~2017-05-21 | XA166 ---
[facility] A Service of [facility] RADIOLOGY TEXT RESULTS PATIENT: DELONTE HERRING LOCATION: B 561-01 : 37 UNIT #: [id number] AGE: [address]: CEASAR DOUGLAS V SEX: F ORDER DR: [id number] [facility] [address] [place], [place] [address] [id number] I MR#: [id number] Acc #: [id number] NAME: DELONTE HERRING. : 1935 SEX: F STUDY DATE/TIME: 05/22/2017 12:04 UNIT: [facility] ROOM: [facility] STUDY DESCRIPTION: XA PICC Line Placement WO Port Attending Physician: Ceasar Douglas M.D. Ordering Physician: Kathryn Gregory M.D. Primary Care Physician: Sofiya Flowers M.D. MEDICAL IMAGING REPORT This report is preliminary unless electronic signature is present EXAM PICC line placement INDICATION Need for IV access in a patient with history of respiratory failure and non-Hodgkin's lymphoma. PRE-PROCEDURE The procedure was explained to the patient and/or patient dermatology sales representative including risks, benefits, potential complications and potential for alternative forms of treatment. Informed consent was obtained, and prior to initiating the procedure a formal timeout procedure was performed. PROCEDURE Using full standard sterile barrier technique, including caps, gowns, gloves, masks, as well as sterile skin preparation and standard sterile draping, the right arm was prepped and draped in the usual fashion, and real-time sterile ultrasound guidance was used to localize an arm vein and to confirm vessel patency. A hard copy ultrasound image was recorded. After local anesthesia with 1% Xylocaine, the vein was punctured using real-time sterile ultrasound guidance, and an 0.018 guidewire was advanced into the superior vena cava, using fluoroscopic guidance. A 5 Swiss dual-lumen PICC was then measured and deployed with the tip positioned in the superior vena cava. The position of the line was documented with a radiographic image. The line was secured in place with an adhesive dressing and an antibiotic patch was applied. Total fluoro time was 0.1 minutes. AK was 5 mGy. IMPRESSION Successful placement of a 5 Swiss dual lumen PowerPICC via the right arm under ultrasound and fluoroscopic guidance. The tip of the PICC is in good position in the superior vena cava. [facility] A Service of [facility] RADIOLOGY TEXT RESULTS PATIENT: DELONTE HERRING LOCATION: [facility] 561-01 : 37 UNIT #: [id number] AGE: [address]: CEASAR DOUGLAS V SEX: F ORDER DR: Dictated by... Alyssa Andrew M.D. THIS IS AN ELECTRONICALLY VERIFIED REPORT Alyssa Andrew M.D. at 05/24/2017 5:06 PM ROBERT/vero TD: 05/24/2017 12:18 JOB #: [id number] MEDICAL IMAGING REPORT Page 1 of 1 COPY
--- NOTE | ~2017-05-21 | BMI ---
[facility] Nutrition Therapy DATE: 05/22/17 Patient: DELONTE HERRING Physician: BERNARDO Address: [address] [place] [address] Room/Bed: [address], Zip: [place] [address] Admit Date: 05/21/17 Date of : [birth year] Height: 5 2 Weight: 238 108 HIGH BMI NOTE: DX: 81 Y.O. FEMALE ADMITTED FOR SHORTNESS OF BREATH ANTHROPOMETRICS: 5'2", WT: 243# (110 KG), BMI: 44.4 DIET: HEALTHY HEART + FLUID RESTRICTION RECOMMENDATIONS: 1. RECOMMEND TO ADD CONSISTENT CARBOHYDRATE TO CURRENT DIET ORDER ABOVE TO PROMOTE GRADUAL WEIGHT LOSS TOWARDS HEALTHY BMI (19.0-25.0) OR +/-10%IBW RD WILL F/U PER PROTOCOL Respectfully, RADHA COOPER MS, RD, LD [facility] cc: client file
--- NOTE | ~2017-05-21 | CO ---
Unit #: [id number] #: [id number] Patient: DELONTE HERRING [id number] [place] [address] [facility]. [place], [place] [address] [id number] I MR#: [id number] NAME: DELONTE HERRING. ROOM: [facility] Age: 81 Sex: F Admission Date: 05/21/2017 : 1935 Attending Physician: Andreas Sawant M.D. Primary Care Physician: Sofiya Flowers M.D. Consultation Date: 05/21/2017 CONSULTATION REPORT REASON FOR CONSULTATION Respiratory failure. HISTORY OF PRESENT ILLNESS A 81-year-old female, well known to me from past hospitalizations, who has hypercapnic hypoxemic respiratory failure, pulmonary hypertension, cor pulmonale, possible obstructive sleep apnea, possible COPD, who again presents to the emergency room with lethargy. She was found to be markedly hypercapnic with respiratory acidosis placed on mask ventilation. With adjustments in her settings, she has slowly improved and now has become more conversant. When I asked why she came to the emergency room, she said "I don't know." When I asked her if she had shortness of breath, she said, "yes, that was it," therefore, I question the reliability. She denies chest pain, hemoptysis, sputum production, fever, or wheezing. PAST MEDICAL HISTORY Remarkable for recent hospitalization with acute on chronic hypercapnic hypoxemic respiratory failure. I had a lengthy discussion with her and family regarding the absolute need to wear her mask ventilation at night. Her hospitalization was actually delayed one day as to make sure she had AVAPS set up for her rehab. When I asked her if she is wearing it, again answers are very unreliable and at best she was wearing it only intermittently at night. Other medical problems include diastolic heart failure, transudative pleural effusion status post thoracentesis last hospitalization, pulmonary hypertension, permanent atrial fibrillation, history of non-Hodgkin lymphoma, coronary artery disease, hypertension, hyperlipidemia, diabetes, and chronic anemia. MEDICATIONS At the shelter, I do not have a formal med rec sheet. They appeared include Lipitor, Claritin, Dulera, iron, Flonase, glipizide, mini nebs, Imdur, melatonin, metoprolol, potassium, Bumex, Coumadin, Pepcid. But again formal med rec is pending. ALLERGIES According to the ER face sheet; macrolide antibiotics, niacin, prednisone, simvastatin, Advair, although she currently is on Dulera without problems and she has received steroids in the past without difficulty. She has received a dose of steroids here in the emergency room ordered by the nurse practitioner without apparent problems. SOCIAL HISTORY Currently is in rehab/shelter. She is reformed tobacco user. Unit #: [id number] #: [id number] Patient: DELONTE HERRING FAMILY HISTORY Unobtainable. REVIEW OF SYSTEMS Unobtainable other than above and likely unreliable. PHYSICAL EXAMINATION GENERAL: Reveals a patient who is awake, will converse, occasional twitches. VITAL SIGNS: Afebrile, pulse 107, respiratory rate 22, blood pressure 125/65, 5 feet 2 inches, 250 pounds, BMI is 42. HEENT: Pupils are equal, round, and reactive to light. Sclerae anicteric. Head, atraumatic. Mucous membranes moist, but oral exam and ENT exam are limited. She currently is on mask ventilation. NECK: Supple. No supraclavicular or cervical adenopathy appreciated. CHEST: Decreased breath sounds. No definite wheeze or stridor. Posterior auscultation could not be performed. CARDIAC: Reveals regular rhythm, controlled rate. No definite gallop. ABDOMEN: Soft and nontender. No hepatomegaly or rebound. EXTREMITIES: Reveal significant 2+ edema in lower extremities and dependent areas. NEUROLOGIC: Grossly intact with no focal motor or sensory deficits noted. SKIN: Warm and dry without rash or diaphoresis. DIAGNOSTIC STUDIES IMAGING STUDIES: Chest x-ray consistent with congestive heart failure. LABORATORY RESULTS: Blood gas with pH of 7.18, pCO2 of 115, PO2 of 86. Repeat on mask ventilation; pH of 7.21, pCO2 of 109, PO2 of 66. BUN 35, creatinine 1.5. BNP is 406. INR 1.1. White blood cell count 13.2, hemoglobin 9.7, platelet count 190. IMPRESSION 1. Acute on chronic hypercapnic hypoxemic respiratory failure. 2. Pulmonary hypertension, cor pulmonale. 3. Obstructive sleep apnea/obesity hypoventilation syndrome. 4. Atrial fibrillation. 5. Possible chronic obstructive pulmonary disease. 6. Transudative effusion secondary to congestive heart failure, tapped on last admission. 7. Medical problems listed above. PLAN Noninvasive mask ventilation, diuresis, maximize airways disease, but that will need steroids long-term, doubt pneumonia, but given the tenuous nature, we will start empirically, check her procalcitonin level and observe. We will recheck her chest x-ray tomorrow and if she has rapid improvement with diuresis likely we will stop antibiotics. Long-term prognosis is very poor. Certainly needs to be compliant with her mask ventilation at the shelter, if not, repeated hospitalizations will occur. When she is better, I will once again have goal of care conversation with her. If she wants full treatment and she re-presents with respiratory failure, I would suggest intubation and tracheostomy and consider nocturnal ventilation. Thank you very much for allowing me to participate in the care Ms. Gutierrez. Unit #: [id number] #: [id number] Patient: NEVAEHDELONTE Fuentes Dictated by... Elina Manrique/jomar TD: 05/22/2017 01:45 JOB #: [id number] CC: Hima Norman M.D. CONSULTATION REPORT Page 1 of 1 X Jose Hong MD X CONSULTATION REPORT
--- NOTE | ~2017-05-21 | DS ---
Unit #: [id number] #: [id number] Patient: DELONTE HERRING [id number] [address] [place], [place] [address] [id number] MR#: [id number] NAME: DELONTE HERRING. ROOM: [facility] Age: 81 Sex: F Admission Date: 05/21/2017 : 1935 Discharge Date: 05/27/2017 Attending Physician: Andreas Sawant M.D. Primary Care Physician: Sofiya Flowers M.D. DISCHARGE SUMMARY DISCHARGE DIAGNOSES 1. Ibwhv-im-vccpywu hypoxic respiratory failure. 2. Heppo-ti-bltlwlj diastolic heart failure. 3. End-stage chronic obstructive pulmonary disease. 4. Atrial fibrillation, on anticoagulation. 5. Hypertension. 6. Diabetes. 7. Pulmonary hypertension. 8. Cor pulmonale. HOSPITAL COURSE The patient is a 81-year-old female with diastolic heart failure and endstage COPD, who presents to [facility] emergency department with a complaint of shortness of breath. Patient was noted to be in respiratory distress and had oxygen saturations in the 80s with a pH of 7.1 and uncalculable pCO2, with a pO2 of 74. Patient was placed on BiPAP and admitted to the ICU. Patient was seen there in consultation by Dr. Hong. In the ICU patient was maintained on BiPAP until 05/22. Upon further discussion with the patient, apparently she has only been intermittently compliant with her avaPs at rehab. This was thought to be a significant contributing factor to her presentation. As a result, a hospice consult was placed given the patient's reluctance to use machinery that she needed and her overall very poor prognosis. The patient met with hospice, however, did not ultimately decide that she wanted to participate with hospice services. As a result, she is being discharged back to rehab now that her breathing is at baseline. Of note the patient was also noted to be somewhat volume overloaded and was treated for kblie-bn-nhfppqm diastolic heart failure. She was on IV Bumex. She diuresed approximately a net of 7 L since admission. She is being discharged on Bumex b.i.d. DISCHARGE MEDICATIONS 1. DuoNeb per nebulizer q.4 h. p.r.n. for shortness of breath. 2. Flonase one spray each nostril daily. 3. Prednisone 40 mg q.h.s. x2 more doses. 4. Tylenol 650 mg p.o. q.4 h. p.r.n. mild to moderate pain or fever. 5. Ocumycin ointment b.i.d. 6. Coumadin 2.5 mg daily. 7. Claritin 10 mg daily. 8. Dulera 200/5 two puffs b.i.d. 9. Lopressor 50 mg p.o. t.i.d. Unit #: [id number] #: [id number] Patient: DELONTE HERRING 10. Bumex 2 mg p.o. b.i.d. 11. Mucinex 1200 mg p.o. b.i.d. 12. Atorvastatin 10 mg p.o. q.h.s. 13. Niferex 150 Plus capsule one tab p.o. b.i.d. 14. Melatonin 1 mg p.o. q.h.s. 15. Augmentin 875 mg p.o. b.i.d. x3 doses. 16. Os-Gavin 500 plus D one tab daily. 17. Calcium carbonate one tab p.o. b.i.d. 18. Glucotrol 5 mg p.o. daily. 19. Imdur ER 30 mg p.o. daily. FOLLOWUP Patient should follow up with Dr. Rajiv Hong upon discharge from rehab. Dictated by... Timur Pacheco M.D. СВЕТЛАНА/kelsy TD: 05/27/2017 14:45 JOB #: [id number] DISCHARGE SUMMARY Page 1 of 1 X Timur Pacheco MD X DISCHARGE SUMMARY
--- NOTE | ~2017-05-21 | DS ---
Unit #: [id number] #: [id number] Patient: DELONTE HERRING [id number] [address] [place], [place] [address] [id number] I MR#: [id number] NAME: DELONTE HERRING. ROOM: [facility] Age: 81 Sex: F Admission Date: 05/21/2017 : 1935 Discharge Date: 05/30/2017 Attending Physician: Andreas Sawant M.D. Primary Care Physician: Sofiya Flowers M.D. DISCHARGE SUMMARY ADDENDUM DISCHARGE DIAGNOSES 1. Acute on chronic hypoxic respiratory failure. 2. Acute on chronic diastolic heart failure. 3. Endstage chronic obstructive pulmonary disease. 4. Atrial fibrillation, on anticoagulation with Coumadin. 5. Hypertension. 6. Diabetes mellitus. 7. Pulmonary hypertension. 8. Cor pulmonale. PERTINENT HISTORY AND HOSPITAL COURSE The patient is a 81-year-old woman with diastolic heart failure and endstage COPD who presented with respiratory failure with hypoxia and hypercapnia. She was placed on BiPAP during her hospitalization, and she was aggressively diuresed. With diuresis, her respiratory status improved. Her atrial fibrillation was rate controlled with digoxin, Cardizem and Metoprolol. Her anticoagulation was with Coumadin, and she was diuresed with Bumex. She was continued on nebulized bronchodilators and inhaled glucocorticoids during her admission, which stabilized her chronic respiratory failure. She is now to be discharged to short-term rehabilitation center for continuation of AVAPS (added volume assisted pressure support ventilation), which she will wear while asleep at bedtime and as needed during naps. DISCHARGE MEDICATIONS 1. Digoxin 0.125 mg tab 1 p.o. at noon. 2. Diltiazem CD 120 mg p.o. b.i.d. 3. Metoprolol 50 mg p.o. t.i.d. 4. Bumex 2 mg p.o. b.i.d. and additional 2 mg if there is increased shortness of breath or increased swelling. 5. Guaifenesin 600 mg 2 tablets p.o. b.i.d. 6. Lipitor 10 mg p.o. at bedtime. 7. High dose insulin aspart sliding scale coverage before meals. 8. Iron polysaccharide 150 mg p.o. once daily. 9. Combivent, albuterol ipratropium Mini-Neb q.i.d. and q.4 hours p.r.n. 10. Acetaminophen 650 mg p.o. q.4 p.r.n. pain or fever. 11. Flonase 1 spray nasally daily. 12. Coumadin 2.5 mg p.o. at bedtime. 13. Claritin 10 mg p.o. daily. 14. Dulera 200 mcg/5 mcg inhaler 2 puffs b.i.d. 15. Calcium with vitamin D 1 tablet p.o. daily. 16. Glipizide 5 mg p.o. daily. Unit #: [id number] #: [id number] Patient: DELONTE HERRING 17. Imdur ER 30 mg p.o. daily. 18. B complex multivitamin tab 1 p.o. once daily. DISCHARGE INSTRUCTIONS Patient to be discharged to short-term rehabilitation where she will continue her assisted noninvasive ventilatory support along with physical therapy and occupational therapy for deconditioning. Dictated by... Elina Ott/maria dolores TD: 05/30/2017 11:03 JOB #: [id number] DISCHARGE SUMMARY Page 1 of 1 X X DISCHARGE SUMMARY
--- NOTE | ~2017-05-21 | CR72 ---
[facility] A Service of [facility] RADIOLOGY TEXT RESULTS PATIENT: DELONTE HERRING LOCATION: [place] [address] : 37 UNIT #: [id number] AGE: [address]: CEASAR DOUGLAS V SEX: F ORDER DR: [id number] [facility] [address] [place], [place] [address] [id number] MR#: [id number] Acc #: [id number] NAME: DELONTE HERRING. : 1935 SEX: F STUDY DATE/TIME: 05/22/2017 05:32 UNIT: [facility] ROOM: [facility] STUDY DESCRIPTION: CR Chest Single View Portable Attending Physician: Ceasar Douglas M.D. Ordering Physician: Jose Hong M.D. Primary Care Physician: Sofiya Flowers M.D. MEDICAL IMAGING REPORT This report is preliminary unless electronic signature is present EXAM Portable chest, 05/22 at 05:32 INDICATION Respiratory failure. History of non-Hodgkin's lymphoma. FINDINGS AP portable chest is compared with 05/21/2017. Cardiomegaly is stable. Infiltrates in the lungs, left greater than right, are again seen. There is slight improvement in aeration at the right base. There is a persistent small left effusion. No pneumothorax. Dictated by... Jeffrey Vance Jr., M.D. THIS IS AN ELECTRONICALLY VERIFIED REPORT Jeffrey Vance Jr., M.D. at 05/22/2017 8:15 PM ANTHONY/vero TD: 05/22/2017 12:15 JOB #: [id number] MEDICAL IMAGING REPORT Page 1 of 1 COPY
--- NOTE | ~2017-05-21 | A ---
[facility] Nutrition Therapy DATE: 05/29/17 Patient: DELONTE HERRING Physician: BERNARDO Address: [address] [place] [address] Room/Bed: [address] [place] [address], Zip: [place] [address] Admit Date: 05/21/17 Date of : 37 Height: 5 2 Weight: 245 111.4 NUTRITIONAL ASSESSMENT: REASON: Consult re: weight reduction diet education Admitting dx: 81 y/o female admitted with SOB PMH: Non-hodgkin's lymphoma s/p chemo, DM, HTN, HLD, CHF, CAD, A-fib, pulmonary HTN, hypoxic respiratory failure, chronic anemia Anthropometrics: Ht: 62", Wt: 110 kg, BMI: 44.4 (stage III obese) Assessment: Chart reviewed, events noted. High BMI noted 05/22, RD previously educated on healthy heart/low sodium diet on 04/17/17. Today written and verbal diet education on weight loss was provided. Also discussed was fluid restriction and monitoring sodium in diet. Pt was provided with weight loss tips handout and 1800 calorie/day 5-day sample meal plan. All questions were answered. Again, pt reports son does her grocery shopping. States she cannot always cook herself and asked about [employer] and [employer] frozen meals- RD encouraged purchasing lower sodium/ lower calorie frozen meals such as Lean Cuisine and to limit consumption. Patient reports she is eating 3 meals per day- will D/C 6 small meals. Other dietary restrictions per CAMPGROUND CARETAKER, she is happy to now be getting thin liquids. Pt demonstrated questionable understanding and ability to comply with recommended dietary restrictions. She will require further reinforcement. Dx: 1) Stage III obese r/t PMH, diet, lifestyle AEB BMI 44.4 2) Food and nutrition related knowledge deficit r/t lack of understanding/compliance with previous diet education AEB RD consult. Intervention: weight loss education Monitoring, Evaluation and Goals: 1. Gradual weight loss towards a healthy BMI range. 2. Understanding/implementation of weight loss education. Recommendations: 1. Please D/C 6 small meals dietary restriction and provide daily snack ~8pm of 1 container peanut butter, 1 pack crackers and 1/2 cup fruit. Keep other dietary restrictions: mechanical soft/NDD2/consistent carb per CAMPGROUND CARETAKER. Fluids per MD (currently on 1800 ml fluid restriction). 2. RD provided both verbal and written weight loss diet eduation as desribed above. [facility] Nutrition Therapy DATE: 05/29/17 Patient: DELONTE HERRING Physician: BERNARDO Address: [id number] [place] [address] Room/Bed: [address] [place] [address], Zip: [place] [address] Admit Date: 05/21/17 Date of : 37 Height: 5 2 Weight: 245 111.4 Contact info left. Suggest outpatient diet counseling. 3. Please consult for further nutitional needs prior to discharge. Respectfully, Kathya Elliott RD, LD Food and Nutritional Services [facility] cc: client file
--- NOTE | ~2017-05-21 | EKG ---
PATIENT: DELONTE HERRING UNIT #: [id number] Ventricular Rate: 114 BPM Atrial Rate: 94 BPM QRS Duration: 86 ms Q-T Interval: 324 ms QTC Calculation(Bezet): 446 ms Calculated R [place]: -6 degrees Calculated T [place]: 63 degrees Diagnosis Line: Atrial fibrillation with rapid ventricular Diagnosis Line: response Diagnosis Line: Abnormal ECG Diagnosis Line: No previous ECGs available Diagnosis Line: Confirmed by ANTHONY ALEXIS MD ([id number]) on 05/30/2017 Diagnosis Line: 7:53:04 AM INTERPRETING MD: REUBEN PEARCE
--- NOTE | ~2017-05-21 | CR72 ---
[facility] A Service of [facility] RADIOLOGY TEXT RESULTS PATIENT: DELONTE HERRING LOCATION: [address]12-04 : 37 UNIT #: [id number] AGE: [address]: ASHLEY DOUGLASUJ V SEX: F ORDER DR: [id number] [facility] [address] [place], [place] [address] [id number] I MR#: [id number] Acc #: [id number] NAME: DELONTE HERRING. : 1935 SEX: F STUDY DATE/TIME: 05/21/2017 7:48 UNIT: CEDOF ROOM: 41666 STUDY DESCRIPTION: CR Chest Single View Portable Attending Physician: Curt Toney M.D. Ordering Physician: Pawel Lauren M.D. Primary Care Physician: Sofiya Flowers M.D. MEDICAL IMAGING REPORT This report is preliminary unless electronic signature is present EXAM Portable chest INDICATION Shortness of air today. PROCEDURE Frontal view chest. COMPARISON 05/13/2017 FINDINGS Heart size is unchanged. Persistent vascular congestion and interstitial alveolar prominence and bibasilar opacity. No pneumothorax. No new dense consolidation. IMPRESSION No significant change from 05/13/2017. No new dense consolidation. Dictated by... Antonio Hoffman M.D. THIS IS AN ELECTRONICALLY VERIFIED REPORT Antonio Hoffman M.D. at 05/22/2017 8:26 AM EED/df TD: 05/21/2017 11:31 JOB #: [id number] MEDICAL IMAGING REPORT Page 1 of 1 COPY
[~2017-05-21 07:17] MED LIST changes: +BUMEX2 MG PO; +CALCIUM CARBON500 M2 PO; +CLARITIN10 M3 PO; +COMBIVENT U/D3 M1 INH; +COUMADIN PO; +FAMOTIDINE20 MG PO; +FERREX 150 PLU1 EACH PO; +LOPRESSOR PO; +LORCET 5-325 M1 EACH PO; +MELATIN3 MG PO; +MUCINEX1200 MG PO; +NOVOLOG100 UNITS/ SUBQ; +POTASSIUM CHLO20 ME1 PO
[2017-05-21 07:57] LABS: POC - CKMB 3.4 ng/mL (0.0-7.9); POC - TROPONIN <0.05 ng/mL (<=0.05)
[2017-05-21 08:09] LABS: INR 1.1; PARTIAL THROMBOPLASTIN TIME 25.2 SECONDS (23.5-31.3)
[2017-05-21 08:24] LABS: BASOPHIL# 0.1 X10e3 (0-0.3); BASOPHIL% 0.8 % (0-2.5); EOSINOPHIL# 0.3 X10e3 (0-0.7); EOSINOPHIL% 1.9 % (0.0-7.0); HEMATOCRIT 32.8 % (35.0-45.0); HEMOGLOBIN 9.7 gm/dL (12.0-16.0); LYMPHOCYTE# 2.3 X10e3 (1.0-3.5); LYMPHOCYTE% 17.1 % (17.0-45.0); MEAN CELL VOLUME 93.5 FL (83-96); MEAN CORPUSCULAR HEMOGLOBIN 27.8 PG (28-34); MEAN CORPUSCULAR HGB CONC 29.7 g/dL (30-36); MEAN PLATELET VOLUME 7.3 FL (6.5-11.5); MONOCYTE# 1.1 X10e3 (0-1.0); MONOCYTE% 8.4 % (3.0-12.0); NEUTROPHIL# 9.5 X10e3 (1.5-7.1); NEUTROPHIL% 71.8 % (40-75); PLATELET COUNT 190 X10e3 (140-420); RED BLOOD COUNT 3.51 X10e (3.90-5.30); RED CELL DISTRIBUTION WIDTH 18.6 % (11.0-15.5); WHITE BLOOD COUNT 13.2 X10e3 (4.0-10.5)
[2017-05-21 08:25] LABS: ALBUMIN SERUM 3.7 g/dL (3.5-5.0); BILIRUBIN, DIRECT 0.1 mg/dL (0.0-0.2); BILIRUBIN,INDIRECT 1.2 mg/dL (0.0-0.9); BILIRUBIN,TOTAL 1.3 mg/dL (0.2-2.0); BUN/CREATININE RATIO 23.33; CALCIUM SERUM 8.9 mg/dL (8.4-10.2); CREATININE SERUM 1.5 mg/dL (0.6-1.4); DIFF IND YES; GLOM FILT RATE Estimated 32.8 mL/min (>60); POTASSIUM 5.4 mmol/L (3.5-5.1); PROTEIN TOTAL SERUM 7.1 g/dL (6.0-8.3)
[2017-05-21 08:30] LABS: ARTERIAL BLD GAS O2 SATURATION 86.3 % (90.0-100.0); ARTERIAL BLOOD GAS CARBOXY HB 1.3 %sat (0.0-9.0)
[2017-05-21 08:33] LABS: ARTERIAL BLOOD GAS ART SITE RIGHT RADIAL; ARTERIAL BLOOD GAS DELIVERY BIPAP; ARTERIAL BLOOD GAS PO2 74.3 mmHg (80.0-100); ARTERIAL BLOOD GAS VENT MODE AVAPS; ARTERIAL DRAW? YES
[2017-05-21 09:02] LABS: ANISOCYTOSIS MOD; PLATELET ESTIMATE NORMAL (NORMAL); POIKILOCYTOSIS SL
[2017-05-21 09:39] LABS: POC - CKMB 3.1 ng/mL (0.0-7.9); POC - TROPONIN <0.05 ng/mL (<=0.05)
[2017-05-21 10:19] LABS: ARTERIAL BLOOD GAS CARBOXY HB 1.4 %sat (0.0-9.0); ARTERIAL BLOOD GAS HCO3 43.4 mmol/L; ARTERIAL BLOOD GAS MET HB 0.9 %sat (0.0-2.0); ARTERIAL BLOOD GAS PO2 86.7 mmHg (80.0-100)
[2017-05-21 10:21] LABS: ARTERIAL BLOOD GAS ART SITE RIGHT RADIAL; ARTERIAL BLOOD GAS pH 7.184 (7.350-7.450); ARTERIAL DRAW? YES
[2017-05-21 10:22] LABS: ARTERIAL BLOOD GAS DELIVERY BIPAP; ARTERIAL BLOOD GAS VENT MODE AVAPS
[2017-05-21 11:27] LABS: ARTERIAL BLD GAS O2 SATURATION 89.2 % (90.0-100.0); ARTERIAL BLOOD GAS CARBOXY HB 1.5 %sat (0.0-9.0); ARTERIAL BLOOD GAS HCO3 44.1 mmol/L; ARTERIAL BLOOD GAS MET HB 0.7 %sat (0.0-2.0); ARTERIAL BLOOD GAS pH 7.215 (7.350-7.450)
[2017-05-21 11:29] LABS: ARTERIAL BLOOD GAS ART SITE LEFT RADIAL; ARTERIAL BLOOD GAS DELIVERY BIPAP; ARTERIAL BLOOD GAS PO2 66.4 mmHg (80.0-100); ARTERIAL BLOOD GAS VENT MODE AVCAPS; ARTERIAL DRAW? YES
[2017-05-21 13:20] LABS: BUN/CREATININE RATIO 20.58; CALCIUM SERUM 8.8 mg/dL (8.4-10.2); CREATININE SERUM 1.7 mg/dL (0.6-1.4); GLOM FILT RATE Estimated 28.2 mL/min (>60)
[2017-05-21 16:02] LABS: CK TOTAL 39 IU/L (26-140)
[2017-05-21] MEDS ORDERED: ATORVASTATIN CA10 MG PO (16:11)
[2017-05-21] MEDS ORDERED: CLARITIN10 M3 PO (16:12)
[2017-05-21] MEDS ORDERED: DULERA 200 MCG/13 GM INH (16:12)
[2017-05-21] MEDS ORDERED: CALCIUM 500 +1 EAC5 PO (16:12)
[2017-05-21] MEDS ORDERED: CAL-GEST200 MG PO (16:12)
[2017-05-21] MEDS ORDERED: GLUCOTROL PO (16:13)
[2017-05-21] MEDS ORDERED: IPRAT-ALBUT 0.5-3 ML NEB (16:13)
[2017-05-21] MEDS ORDERED: FLONASE ALLERG9.9 ML (16:13)
[2017-05-21] MEDS ORDERED: FERREX 150 PLU1 EACH PO (16:13)
[2017-05-21] MEDS ORDERED: MELATONIN1 MG PO (16:14)
[2017-05-21] MEDS ORDERED: LOPRESSOR PO (16:14)
[2017-05-21] MEDS ORDERED: IMDUR-ER30 M1 PO (16:14)
[2017-05-21] MEDS ORDERED: MUCINEX1200 MG PO (16:14)
[2017-05-21 22:01] LABS: CK TOTAL 25 IU/L (26-140)
[2017-05-22 04:32] LABS: ARTERIAL BLD GAS O2 SATURATION 97.3 % (90.0-100.0); ARTERIAL BLOOD GAS HCO3 45.7 mmol/L; ARTERIAL BLOOD GAS MET HB 0.7 %sat (0.0-2.0); ARTERIAL BLOOD GAS pH 7.335 (7.350-7.450)
[2017-05-22 04:34] LABS: ARTERIAL BLOOD GAS ALLEN TEST NORMAL; ARTERIAL BLOOD GAS ART SITE LEFT RADIAL; ARTERIAL BLOOD GAS PCO2 85.8 mmHg (35.0-45.0); ARTERIAL DRAW? YES
[2017-05-22 04:35] LABS: ARTERIAL BLOOD GAS DELIVERY BIPAP AVAPS R20 EP5
[2017-05-22 06:06] LABS: HEMATOCRIT 27.6 % (35.0-45.0); HEMOGLOBIN 8.6 gm/dL (12.0-16.0); MEAN CELL VOLUME 91.5 FL (83-96); MEAN CORPUSCULAR HEMOGLOBIN 28.5 PG (28-34); MEAN CORPUSCULAR HGB CONC 31.2 g/dL (30-36); MEAN PLATELET VOLUME 7.3 FL (6.5-11.5); RED BLOOD COUNT 3.02 X10e (3.90-5.30); RED CELL DISTRIBUTION WIDTH 18.1 % (11.0-15.5)
[2017-05-22 06:11] LABS: INR 1.2; PROTHROMBIN TIME (PATIENT) 12.7 SECONDS (10.0-11.7); WHITE BLOOD COUNT 4.1 X10e3 (4.0-10.5)
[2017-05-22 08:25] LABS: ARTERIAL BLOOD GAS PCO2 >120.0 mmHg (35.0-45.0)
[2017-05-22 14:22] LABS: CALCIUM SERUM 8.4 mg/dL (8.4-10.2); CREATININE SERUM 1.5 mg/dL (0.6-1.4); GLOM FILT RATE Estimated 32.8 mL/min (>60); MAGNESIUM 1.6 mg/dL (1.6-3.0); POTASSIUM 4.4 mmol/L (3.5-5.1)
[2017-05-23 04:22] LABS: BASOPHIL% 0.1 % (0-2.5); HEMATOCRIT 26.2 % (35.0-45.0); HEMOGLOBIN 8.3 gm/dL (12.0-16.0); LYMPHOCYTE# 0.6 X10e3 (1.0-3.5); LYMPHOCYTE% 8.7 % (17.0-45.0); MEAN CELL VOLUME 90.2 FL (83-96); MEAN CORPUSCULAR HEMOGLOBIN 28.5 PG (28-34); MEAN CORPUSCULAR HGB CONC 31.6 g/dL (30-36); MEAN PLATELET VOLUME 7.1 FL (6.5-11.5); MONOCYTE# 0.5 X10e3 (0-1.0); MONOCYTE% 6.3 % (3.0-12.0); NEUTROPHIL# 6.2 X10e3 (1.5-7.1); NEUTROPHIL% 84.9 % (40-75); PLATELET COUNT 161 X10e3 (140-420); RED BLOOD COUNT 2.91 X10e (3.90-5.30); RED CELL DISTRIBUTION WIDTH 17.7 % (11.0-15.5)
[2017-05-23 04:23] LABS: DIFF IND NO; WHITE BLOOD COUNT 7.3 X10e3 (4.0-10.5)
[2017-05-23 04:35] LABS: INR 1.2; PROTHROMBIN TIME (PATIENT) 12.8 SECONDS (10.0-11.7)
[2017-05-23 04:55] LABS: BUN/CREATININE RATIO 28.66; CALCIUM SERUM 8.5 mg/dL (8.4-10.2); CREATININE SERUM 1.5 mg/dL (0.6-1.4); GLOM FILT RATE Estimated 32.8 mL/min (>60); POTASSIUM 4.5 mmol/L (3.5-5.1)
[2017-05-23 09:47] LABS: ARTERIAL BLD GAS O2 SATURATION 92.8 % (90.0-100.0); ARTERIAL BLOOD GAS CARBOXY HB 1.1 %sat (0.0-9.0); ARTERIAL BLOOD GAS HCO3 44.2 mmol/L; ARTERIAL BLOOD GAS MET HB 0.6 %sat (0.0-2.0); ARTERIAL BLOOD GAS pH 7.368 (7.350-7.450)
[2017-05-23 09:48] LABS: ARTERIAL BLOOD GAS ART SITE RIGHT BRACHIAL; ARTERIAL BLOOD GAS DELIVERY O; ARTERIAL BLOOD GAS PO2 73.9 mmHg (80.0-100); ARTERIAL DRAW? YES
[2017-05-23 18:15] LABS: URINE SOURCE CATH
[2017-05-23 18:21] LABS: URINE APPEARANCE CLEAR; URINE BILIRUBIN NEG (NEG); URINE BLOOD 1+ (NEG); URINE COLOR YELLOW; URINE GLUCOSE NEG (NEG); URINE KETONE NEG (NEG); URINE LEUKOCYTE ESTERASE TRACE (NEG); URINE NITRATE NEG (NEG); URINE PH 5.5 (5-8); URINE PROTEIN NEG (NEG); URINE SPECIFIC GRAVITY 1.014 (1.003-1.035); URINE UROBILINOGEN 0.2 MG/DL (NEG)
[2017-05-23 18:22] LABS: URINE BACTERIA AUWI NEG (NEGATIVE); URINE SQUAMOUS EPITHELIAL CELL NONE SEEN /[HPF]; UWBCS1 AUWI 0-2 (0-5)
[2017-05-24 06:46] LABS: BASOPHIL% 0.1 % (0-2.5); HEMATOCRIT 26.2 % (35.0-45.0); HEMOGLOBIN 8.3 gm/dL (12.0-16.0); LYMPHOCYTE# 0.8 X10e3 (1.0-3.5); LYMPHOCYTE% 9.1 % (17.0-45.0); MEAN CELL VOLUME 89.8 FL (83-96); MEAN CORPUSCULAR HEMOGLOBIN 28.5 PG (28-34); MEAN CORPUSCULAR HGB CONC 31.7 g/dL (30-36); MEAN PLATELET VOLUME 7.1 FL (6.5-11.5); MONOCYTE% 11.7 % (3.0-12.0); NEUTROPHIL# 6.7 X10e3 (1.5-7.1); NEUTROPHIL% 79.1 % (40-75); PLATELET COUNT 158 X10e3 (140-420); RED BLOOD COUNT 2.92 X10e (3.90-5.30); RED CELL DISTRIBUTION WIDTH 18.1 % (11.0-15.5); WHITE BLOOD COUNT 8.5 X10e3 (4.0-10.5)
[2017-05-24 06:53] LABS: DIFF IND NO
[2017-05-24 06:59] LABS: INR 1.2; PROTHROMBIN TIME (PATIENT) 13.1 SECONDS (10.0-11.7)
[2017-05-24 07:14] LABS: BUN/CREATININE RATIO 29.28; CALCIUM SERUM 8.1 mg/dL (8.4-10.2); CREATININE SERUM 1.4 mg/dL (0.6-1.4); GLOM FILT RATE Estimated 35.6 mL/min (>60); MAGNESIUM 1.8 mg/dL (1.6-3.0); PHOSPHOROUS 2.7 mg/dL (2.5-4.6); POTASSIUM 4.7 mmol/L (3.5-5.1)
[2017-05-24 07:35] LABS: PROCALCITONIN 0.28 NG/ML
[2017-05-25 05:32] LABS: HEMATOCRIT 26.8 % (35.0-45.0); HEMOGLOBIN 8.6 gm/dL (12.0-16.0); INR 1.6; MEAN CELL VOLUME 89.9 FL (83-96); MEAN CORPUSCULAR HEMOGLOBIN 28.8 PG (28-34); MEAN PLATELET VOLUME 7.3 FL (6.5-11.5); PROTHROMBIN TIME (PATIENT) 17.8 SECONDS (10.0-11.7); RED BLOOD COUNT 2.98 X10e (3.90-5.30); RED CELL DISTRIBUTION WIDTH 17.8 % (11.0-15.5)
[2017-05-25 06:00] LABS: BUN/CREATININE RATIO 30.76; CREATININE SERUM 1.3 mg/dL (0.6-1.4); POTASSIUM 3.9 mmol/L (3.5-5.1)
[2017-05-26 07:25] LABS: INR 2.3; PROTHROMBIN TIME (PATIENT) 24.8 SECONDS (10.0-11.7)
[2017-05-27 06:26] LABS: HEMATOCRIT 27.3 % (35.0-45.0); HEMOGLOBIN 8.6 gm/dL (12.0-16.0); MEAN CELL VOLUME 89.9 FL (83-96); MEAN CORPUSCULAR HEMOGLOBIN 28.4 PG (28-34); MEAN CORPUSCULAR HGB CONC 31.6 g/dL (30-36); MEAN PLATELET VOLUME 7.5 FL (6.5-11.5); RED BLOOD COUNT 3.04 X10e (3.90-5.30); RED CELL DISTRIBUTION WIDTH 17.8 % (11.0-15.5)
[2017-05-27 06:48] LABS: INR 3.6
[2017-05-27 06:51] LABS: PROTHROMBIN TIME (PATIENT) 39.6 SECONDS (10.0-11.7)
[2017-05-27 07:54] LABS: CREATININE SERUM 1.3 mg/dL (0.6-1.4); POTASSIUM 4.3 mmol/L (3.5-5.1)
[2017-05-28 06:49] LABS: INR 1.7
[2017-05-28 06:50] LABS: PROTHROMBIN TIME (PATIENT) 18.7 SECONDS (10.0-11.7)
[2017-05-28 07:21] LABS: BUN/CREATININE RATIO 49.23; CALCIUM SERUM 8.1 mg/dL (8.4-10.2); CREATININE SERUM 1.3 mg/dL (0.6-1.4); MAGNESIUM 1.9 mg/dL (1.6-3.0); POTASSIUM 4.7 mmol/L (3.5-5.1)
[2017-05-29 06:45] LABS: INR 1.5; PROTHROMBIN TIME (PATIENT) 15.9 SECONDS (10.0-11.7)
[2017-05-30 05:54] LABS: INR 1.6; PROTHROMBIN TIME (PATIENT) 17.6 SECONDS (10.0-11.7)
[2017-05-30 06:37] LABS: BUN/CREATININE RATIO 57.69; CREATININE SERUM 1.3 mg/dL (0.6-1.4)
[2017-05-30] MEDS ORDERED: ACETAMINOPHEN PR (11:11)
== END 2017-05-30 12:50 | DRG 291 ==
LOC: CED 07:17 → CICCU2 09:25 → CEDOF 09:25 → CED 11:04 → CEDOF 11:04 → CICCU2 21:25 → C5B 05-23 18:28
PROVIDERS: Emergency Medicine; Internal Medicine; Internal Medicine Cardiovascular Disease; Nurse Practitioner; Nurse Practitioner Family
PROC: 02HV33Z Insertion of Infusion Device into Superior Vena Cava, Percutaneous Approach (ICD-10-PCS; principal; 2017-05-22)
PROC: B548ZZA Ultrasonography of Superior Vena Cava, Guidance (ICD-10-PCS; 2017-05-22)
DX: I11.0 Hypertensive heart disease with heart failure (principal); J96.21 Acute and chronic respiratory failure with hypoxia; I27.2 Other secondary pulmonary hypertension; E66.2 Morbid (severe) obesity with alveolar hypoventilation; Z68.41 Body mass index [BMI] 40.0-44.9, adult; I27.81 Cor pulmonale (chronic); J96.22 Acute and chronic respiratory failure with hypercapnia; I50.33 Acute on chronic diastolic (congestive) heart failure; J44.9 Chronic obstructive pulmonary disease, unspecified; I48.2 Chronic atrial fibrillation; Z79.01 Long term (current) use of anticoagulants; E11.9 Type 2 diabetes mellitus without complications; Z79.84 Long term (current) use of oral hypoglycemic drugs; E78.5 Hyperlipidemia, unspecified; Z85.72 Personal history of non-Hodgkin lymphomas
CPT/HCPCS: 36415; 36600; 71010; 76937; 77001; 80048; 80076; 81003; 82308; 82550; 82553; 82803; 82947; 83605; 83735; 83880; 84100; 84484; 85025; 85027; 85610; 85730; 87040; 87086; 92526; 92610; 93005; 94640; 94660; 94760; 96374; 97110; 97116; 97161; 97166; 97530; 97535; 99291; C1751; G8978-GP; G8979-GP; G8987-GO; G8988-GO; G8996-GN; G8997-GN; G8998-GN; J1160; J1650; J1815; J1940; J2543; J2920; J2930; J3475

== ENCOUNTER 2017-06-04 17:52 | Inpatient (IN) | payer MEDICARE, OTHER ==
[~2017-06-04] VITALS: Ht 167.6 cm; Wt 105.4 kg
--- NOTE | ~2017-06-04 | CR72 ---
[facility] A Service of [facility] RADIOLOGY TEXT RESULTS PATIENT: DELONTE HERRING LOCATION: [facility] 328-01 : 37 UNIT #: [id number] AGE: [address]: CEASAR DOUGLAS V SEX: F ORDER DR: [id number] [facility] [address] [place], [place] [address] [id number] I MR#: [id number] Acc #: [id number] NAME: DELONTE HERRING : 1935 SEX: F STUDY DATE/TIME: 06/04/2017 18:50 UNIT: [address] ROOM: [facility] STUDY DESCRIPTION: CR Chest Single View Portable Attending Physician: Ceasar Douglas M.D. Ordering Physician: Kamala Garay M.D. Primary Care Physician: Sofiya Flowers M.D. MEDICAL IMAGING REPORT This report is preliminary unless electronic signature is present EXAM Frontal chest, 06/04/2017. INDICATIONS Short of air. Bilateral lower extremity edema today. TECHNIQUE Frontal chest compared with 05/22/2017. FINDINGS The heart is enlarged. There has been interval decrease in vascular congestion and interstitial edema. Bilateral effusions, left greater than right, with compressive atelectasis or pneumonia in the left lung base. Probable more confluent edema in the perihilar and lower lung zone on the right. IMPRESSION 1. Cardiomegaly with persistent pulmonary edema; however, slightly improved compared to the prior study. 2. Effusions, left greater than right, with compressive atelectasis or pneumonia in the left lung base. Dictated by... Christophe Ash M.D. THIS IS AN ELECTRONICALLY VERIFIED REPORT Christophe Ash M.D. at 06/05/2017 2:20 PM Rebeca TD: 06/05/2017 09:57 JOB #: [id number] MEDICAL IMAGING REPORT [facility] A Service of [facility] RADIOLOGY TEXT RESULTS PATIENT: DELONTE HERRING LOCATION: [facility] 328-01 : 37 UNIT #: [id number] AGE: [address]: CEASAR DOUGLAS V SEX: F ORDER DR: Page 1 of 1 COPY
--- NOTE | ~2017-06-04 | CO ---
Unit #: [id number] #: [id number] Patient: DELONTE HERRING [id number] [address] [place], [place] [address] [id number] I MR#: [id number] NAME: DELONTE HERRING. ROOM: 328 Age: 81 Sex: F Admission Date: 06/04/2017 : 1935 Attending Physician: Andreas Sawant M.D. Primary Care Physician: Sofiya Flowers M.D. CONSULTATION REPORT CHIEF COMPLAINT "My legs are swelling." HISTORY OF PRESENT ILLNESS Patient is a 81-year-old female well known to me from past hospitalizations who has COPD and hypercapnic respiratory failure, on oxygen daily and AVAPS at night. She was recently at this institution and admitted to [facility] for rehab. She had become fairly compliant with her AVAPS and states compliance with AVAPS at the [facility]. In the past, this has been a problem. She denies chest pain, fever, sputum production, pleurisy, or hemoptysis. PAST MEDICAL HISTORY Extensive past hospitalizations for hypercapnic, hypoxemic respiratory failure, pulmonary hypertension, COPD, diastolic heart failure, transudative pleural effusions in the past, permanent atrial fibrillation, non-Hodgkin's lymphoma, coronary artery disease, systemic hypertension, hyperlipidemia, diabetes, and chronic anemia. MEDICATIONS From a medication reconciliation sheet include: 1. Glucotrol. 2. Imdur. 3. Calcium. 4. Flonase. 5. Claritin. 6. Lopressor. 7. Bumex. 8. Mucinex. 9. Dulera. 10. Iron. 11. Lidoderm patch. 12. Coumadin. 13. Melatonin. 14. Lipitor. 15. Tylenol. 16. Mini-nebs. ALLERGIES Macrolide antibiotics, niacin, prednisone is listed but she has received steroids in the past without difficulty, simvastatin, and salmeterol unclear reaction but I doubt true allergy. SOCIAL HISTORY Unit #: [id number] #: [id number] Patient: DELONTE HERRING She currently is at [facility] for rehab. She is a reformed tobacco user. FAMILY HISTORY No definite familial lung disease. REVIEW OF SYSTEMS She does complain of arthritic pain. She has it occasionally in her neck, occasionally in her back, and occasionally elsewhere. It does seem to be intermittent and transient. No chest pain, palpitations, nausea, vomiting, diarrhea, hematuria, dysuria, focal weakness or paresthesias, fever, chills, or weight loss. She states compliance with AVAPS. Further review of systems is negative. PHYSICAL EXAMINATION GENERAL: Patient is in no acute distress. She is awake and alert, sitting in a chair, on nasal cannula oxygen. VITAL SIGNS: Afebrile, pulse 78, respiratory rate 18, and blood pressure is 141/60. She is 5 feet 6 and 246 pounds. BMI is 39. HEENT: Pupils are equal, round, and reactive to light. Sclerae are anicteric. Head atraumatic. Mucous membranes are moist. NECK: Supple. No supraclavicular or cervical adenopathy appreciated. CHEST: A few crackles at the left posterior base. No wheeze, stridor, or consolidation. She does have a Lidoderm patch on her back. CARDIAC: Irregular rhythm, controlled rate. Soft murmur. ABDOMEN: Obese, soft, and nontender. No hepatomegaly or rebound. EXTREMITIES: With 3+ bilateral pitting edema. No calf tenderness. SKIN: Warm and dry without rash or diaphoresis. NEUROLOGIC: Grossly intact with no focal muscle or sensory deficits. DIAGNOSTIC STUDIES LABORATORY: Arterial blood gas shows pH of 7.39, PCO2 of 68, and PO2 of 121, and that was on 4 liters. BUN is 14 and creatinine is 1.4. BNP 274. White blood cell count 6.7, hemoglobin 7.7, and platelet count 214,000. INR was 1.5. IMAGING: Chest x-ray left greater than right basilar infiltrates. Overall appears improved. Lower extremity venous Dopplers are pending. CARDIOLOGY: Rhythm strips show atrial fibrillation. EKG shows atrial fibrillation and no definite acute ischemic changes. IMPRESSION 1. Lower extremity edema likely secondary to cor pulmonale and diastolic heart failure. 2. Chronic hypoxemic, hypercapnic respiratory failure, appears compensated. 3. Chronic obstructive pulmonary disease. 4. Obstructive sleep apnea with obesity hypoventilation syndrome. 5. Anemia. 6. Do Not Resuscitate status. 7. Medical problems listed above. PLAN Continue oxygen during the day and AVAPS at night. We will check nocturnal oximetry on AVAPS. If she has persistent hypoxemia at night despite compliant use of AVAPS, this could explain her worsening lower extremity edema. Agree with lower extremity venous Dopplers to rule out Unit #: [id number] #: [id number] Patient: DELONTE HERRING DVT as her pro time was therapeutic. Ongoing efforts at diuresis. Thank you very much for allowing me to participate in the care of Ms. Herring. Dictated by... Elina Manrique/bill TD: 06/05/2017 18:21 JOB #: [id number] CONSULTATION REPORT Page 1 of 1 X Jose Hong MD X CONSULTATION REPORT
--- NOTE | ~2017-06-04 | DS ---
Unit #: [id number] #: [id number] Patient: DELONTE HERRING [id number] [address] [place], [place] [address] [id number] I MR#: [id number] NAME: DELONTE HERRING ROOM: 328 Age: 81 Sex: F Admission Date: 06/04/2017 : 1935 Discharge Date: 06/08/2017 Attending Physician: Andreas Sawant M.D. Primary Care Physician: Sofiya Flowers M.D. DISCHARGE SUMMARY DISCHARGE DIAGNOSES 1. Diastolic heart failure with pulmonary edema. 2. Acute on chronic respiratory failure with chronic obstructive pulmonary disease exacerbation. 3. Chronic atrial fibrillation on chronic anticoagulation with Coumadin. 4. Chronic kidney disease. PERTINENT HISTORY/HOSPITAL COURSE The patient presented with symptoms of shortness of breath and extremity edema. She was noted to be in pulmonary edema and acute exacerbation of diastolic heart failure along with acute exacerbation of chronic obstructive pulmonary disease requiring continuous use of AVAPS and oxygen. During her admission, the patient was diuresed with Bumex and Zaroxolyn was added. She was continued on AVAPS. She received (1) bronchodilators and inhaled corticosteroids. With diuresis, her symptoms improved. She was no longer short of breath. Her peripheral edema also resolved. The patient will be discharged to [facility]. She will be followed up with her research nurse practitioner, Dr. Hong, and she will continue AVAPS for respiratory support. DISCHARGE MEDICATIONS 1. Combivent nebulizers q.4 p.r.n. 2. Acetaminophen 650 mg p.o. q.6 p.r.n. 3. Coumadin 4 mg p.o. once daily. 4. Claritin 10 mg p.o. once daily. 5. Dulera 200 mcg/5 mcg inhaler, two puffs twice daily. 6. Digoxin 0.125 mg p.o. once daily. 7. Metoprolol 50 mg p.o. q.12 hours. 8. Bumex 2 mg p.o. twice daily. 9. Zaroxolyn 2.5 mg p.o. on Mondays, Wednesdays and Fridays. 10. Lipitor 10 mg p.o. at bedtime. 11. Low dose sliding scale insulin coverage. 12. Melatonin 1 mg p.o. at bedtime. 13. Calcium 500 with vitamin D 200, one capsule p.o. b.i.d. 14. Glipizide 5 mg p.o. once daily. 15. Imdur 30 mg p.o. once daily. DISCHARGE INSTRUCTIONS The patient will be discharged to [facility]. She will need to use AVAPS as needed and continuously at bedtime as well as supplemental oxygen to maintain O2 sats above 90%. Also, discharge instructions to follow up with Dr. Hong at [facility]. Unit #: [id number] #: [id number] Patient: DELONTE HERRING Dictated by... Elina Ott/luiz TD: 06/08/2017 13:03 JOB #: [id number] DISCHARGE SUMMARY Page 1 of 1 X X DISCHARGE SUMMARY
--- NOTE | ~2017-06-04 | HP ---
Unit #: [id number] #: [id number] Patient: DELONTE HERRING [id number] [address] [place], [place] [address] [id number] I MR#: [id number] NAME: DELONTE HERRING. ROOM: 00669 Age: 81 Sex: F Admission Date: 06/04/2017 : 1935 Attending Physician: Bouchra Loyola M.D. Primary Care Physician: Sofiya Flowers M.D. HISTORY AND PHYSICAL CHIEF COMPLAINT Increasing shortness of breath and pedal edema, likely related to CHF secondary to diastolic dysfunction. Worsening normocytic anemia. HISTORY This pleasant 81-year-old female with CAD and fairly normal LV function, atrial fibrillation, chronic kidney disease, hypertension, diabetes mellitus, is admitted for worsening shortness of breath and pedal edema. Patient lives at [facility]. States that today she developed sudden onset of shortness of breath with worsening pedal edema. Notes increasing left flank pain as well; denies chest pain or cough, no fever, sweats, chills or urinary symptoms. Her family tells me that O2 sats were about 86% earlier on 3 L of oxygen. The patient was increased to 4 L of oxygen at [facility] and given albuterol treatment. She was brought to this emergency department with an O2 saturation of 100% on 4 L of oxygen. On examination she does have bilateral pitting pedal edema. There are some crackles at the left base. Chest x-ray shows persistent but improved congestive heart failure with left greater than right pleural effusions and compressive atelectasis versus infiltrate at the left base. In the ER she was given 1 mg of IV Bumex without improvement. States that she was making good urine until today when her urine output dropped. Denies melena or hematochezia but it is of note that her chronic anemia is worse. Her hemoglobin was 8.6 over a week ago. Currently it is 7.7. INR is subtherapeutic at 1.4. Patient states that she did receive Coumadin prior to her transfer, believes that she was given an extra dose today. PAST MEDICAL HISTORY 1. CAD with history of angioplasty to the left circumflex. Echocardiogram 04/07/2017, ejection fraction 50%, mild LVH and V-shaped left ventricle consistent with right ventricular volume overload and volume pressure. Moderately dilated RV. RSVP 47 mmHg. Mild MR and TR. 2. Chronic atrial fibrillation, anticoagulated with Coumadin. 3. Chronic kidney disease. 4. Essential hypertension. 5. Hyperlipidemia. 6. AODM. 7. Hepatitis C. 8. Chronic normocytic anemia. Patient does have a history of B12 deficiency although in March iron, B12, folic acid stores were normal. 9. Non-Hodgkin lymphoma, treated in 2011 with chemotherapy, followed by Dr. Thompson. Unit #: [id number] #: [id number] Patient: DELONTE HERRING 10. Possible COPD. 11. Obstructive sleep apnea. 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 13. Cholecystectomy. 14. Tonsillectomy. 15. Hysterectomy. 16. Cataract extraction. ALLERGIES Macrolide antibiotics, niacin, prednisone, Zocor, Advair. ASSISTED MEDICATIONS 1. Glipizide 5 mg daily. 2. Imdur 30 mg daily. 3. Os-Gavin 500 mg with vitamin D daily. 4. Flonase nasal spray daily. 5. Claritin 10 mg daily. 6. Lopressor 50 mg p.o. t.i.d. 7. Bumex 2 mg b.i.d. 8. Mucinex 1200 mg b.i.d. 9. Dulera 200/5 two puffs b.i.d. 10. Calcium carbonate 650 mg one tablet b.i.d. 11. Ferrex 150 mg b.i.d. 12. Patient uses a Trilogy vent q.h.s. to q.a.m. and is maintained on oxygen. 13. Lidocaine patch to the lower back. 14. Coumadin 3 mg daily. 15. Melatonin 1 mg q.h.s. 16. Lipitor 10 mg daily. 17. P.r.n. Tylenol. 18. DuoNeb q.4 h. p.r.n. FAMILY HISTORY Negative for CAD. SOCIAL HISTORY The patient lives at [facility] under the care of Dr. Espinoza, stopped smoking many years ago, does not drink alcohol. REVIEW OF SYSTEMS Shortness of breath, pedal edema, CAD, atrial fibrillation, diabetes, hypertension, back pain, right ear fullness, abovementioned surgeries. All other systems were reviewed and are otherwise negative. PHYSICAL EXAMINATION GENERAL: Pleasant obese 81-year-old female currently in no acute distress. VITAL SIGNS: Temperature 98.7. Pulse 72. Respirations 20. Blood pressure 108/60. O2 saturation 100% on 4 L of oxygen. HEENT: Eyes PERRLA, extraocular muscles are intact, status post bilateral cataract extraction. Her pharynx is benign. Of note I did check the TMs and the right TM does have some fluid behind it. NECK: Supple, without adenopathy or thyromegaly. Elevated JVD. CHEST: Crackles at the left base. CARDIAC: Fairly normal S1 and S2, without definite murmur. ABDOMEN: Bowel sounds are present. No hepatosplenomegaly, tenderness or masses. BACK: Reveals left CVA percussion tenderness. EXTREMITIES: With bilateral pitting edema. Negative Homans sign. Pedal Unit #: [id number] #: [id number] Patient: NEVAEH,DELONTE J pulses present although more palpable on the right than the left. No ulcers on the feet. NEUROLOGIC EXAM: Patient is awake, alert, oriented. Cranial nerves are intact. Equal strength throughout but generally weak on exam. DIAGNOSTIC STUDIES ADMISSION LABORATORY: Hematocrit is 24.7, down from 27.3 over a week ago, normal white count, platelet count and MCV. SMA-12 with glucose 193, BUN 41, creatinine 1.4, a change from a BUN of 75, creatinine of 1.3 a week ago, chloride is 89, CO2 40, calcium is 8.2, albumin is 3.3. BNP is 274. Digoxin level 0.2. Cardiac markers are negative. ABG pH 7.38, pCO2 69, pO2 is 121, O2 saturation is 97.7% on 4 L of oxygen. IMAGING: Chest x-ray persistent congestive heart failure although somewhat improved, left greater than right pleural effusions with compressive atelectasis versus infiltrate of the left base. CARDIOVASCULAR: EKG afib, rate controlled, rate 66. ASSESSMENT 1. Shortness of breath and increasing bilateral pedal edema, probably related to diastolic dysfunction with exacerbation and congestive heart failure. No chest pain or cough. 2. Worsening normocytic anemia, likely on the basis of chronic disease and chronic kidney disease. Anemia workup was performed 03/2017. 3. Pleural effusions. Of note patient did undergo a thoracentesis 04/2017. This was transudative pleural effusion. 4. Chronic rate controlled atrial fibrillation, anticoagulated with a subtherapeutic INR. 5. Coronary artery disease with ejection fraction about 50%. No chest pain. 6. Treated non-Hodgkin lymphoma. 7. Chronic kidney disease. 8. History of hepatitis B. 9. Obstructive sleep apnea, on avaPs. PLANS 1. Will decrease Lopressor to b.i.d. while CHF is exacerbated. IV Bumex, obtain Is and Os and daily weights, consult patient's bending roll operator. 2. Check Hemoccult and transfuse one unit. 3. Pulmonary consultation. 4. Obtain urinalysis. 5. Venous Dopplers of the legs. 6. Increase Coumadin, add low-dose Lovenox until INR is about 2. 7. Patient is DNR per her papers. 8. Repeat all labs in the morning. 9. Will ask for the MAR to be refaxed as at the time of discharge four days ago patient was taking digoxin and Cardizem in addition to sliding scale insulin. Dictated by Bouchra Loyola M.D. AML/cf Unit #: [id number] #: [id number] Patient: DELONTE HERRING TD: 06/04/2017 22:38 JOB #: [id number] HISTORY AND PHYSICAL Page 1 of 1 X Bouchra Loyola MD HISTORY AND PHYSICAL
--- NOTE | ~2017-06-04 | US84 ---
[id number] [facility] [address] [place], [place] [address] [id number] I MR#: [id number] Acc #: [id number] NAME: DELONTE HERRING : 1935 SEX: F STUDY DATE/TIME: 06/05/2017 7:31 UNIT: C3A PCU ROOM: 328 STUDY DESCRIPTION: US LE Veins Complete Uziel Stdy Attending Physician: Andreas Sawant M.D. Ordering Physician: Bouchra Loyola M.D. Primary Care Physician: Sofiya Flowers M.D. MEDICAL IMAGING REPORT This report is preliminary unless electronic signature is present EXAM Bilateral lower extremity venous duplex, 06/05/2017. HISTORY Bilateral lower extremity edema for 1 week extending from the knee to foot bilaterally. Evaluate for deep vein thrombosis. TECHNIQUE Venous ultrasound examination of both lower extremities was performed using grayscale, spectral Doppler and color flow Doppler imaging. FINDINGS The examination is negative. There is no evidence of deep venous thrombus from the groin to the lower calf bilaterally. Visualized greater saphenous veins are also patent. IMPRESSION Negative examination. No evidence of lower extremity deep venous thrombosis. Dictated by... Gelacio Reich M.D. THIS IS AN ELECTRONICALLY VERIFIED REPORT Gelacio Reich M.D. at 06/06/2017 2:36 PM TAMMI/stan TD: 06/05/2017 14:00 JOB #: [id number] MEDICAL IMAGING REPORT Page 1 of 1 COPY
--- NOTE | ~2017-06-04 | EKG ---
PATIENT: DELONTE HERRING UNIT #: [id number] Ventricular Rate: 66 BPM Atrial Rate: 36 BPM QRS Duration: 86 ms Q-T Interval: 386 ms QTC Calculation(Bezet): 404 ms Calculated R [place]: -12 degrees Calculated T [place]: 44 degrees Diagnosis Line: Atrial fibrillation Diagnosis Line: Abnormal ECG Diagnosis Line: When compared with ECG of 27-MAY-2017 21:46, Diagnosis Line: Vent. rate has decreased BY 48 BPM Diagnosis Line: Nonspecific T wave abnormality no longer evident Diagnosis Line: in Lateral leads Diagnosis Line: Confirmed by ANTHONY ALEXIS MD ([id number]) on 06/05/2017 Diagnosis Line: 11:48:50 PM INTERPRETING MD: REUBEN PEARCE
--- NOTE | ~2017-06-04 | HP ---
Unit #: [id number] #: [id number] Patient: DELONTE HERRING [id number] [address] [address] [id number] E MR#: [id number] NAME: DELONTE HERRING ROOM: Age: 81 Sex: F Admission Date: 06/04/2017 : 1935 Attending Physician: Kamala Garay M.D. Primary Care Physician: Sofiya Flowers M.D. HISTORY AND PHYSICAL ADDENDUM The patient was recently admitted to this facility 05/21 through 05/30/2017 for fvfdw-pb-hwmvisl hypoxic respiratory failure secondary to vjljw-cs-pqeakyt diastolic heart failure. Again, at the retirement she initially did well over the past four days until today when she became short of breath and had a worsening edema. Dictated by Bouchra Loyola M.D. AML/cf TD: 06/04/2017 22:12 JOB #: [id number] HISTORY AND PHYSICAL Page 1 of 1 X Bouchra Loyola MD HISTORY AND PHYSICAL
[~2017-06-04 17:52] MED LIST changes: +ACETAMINOPHEN PR; +ATORVASTATIN CA10 MG PO; +CAL-GEST200 MG PO; +CALCIUM 500 +1 EAC5 PO; +DULERA 200 MCG/13 GM INH; +FLONASE ALLERG9.9 ML; +GLUCOTROL PO; +IPRAT-ALBUT 0.5-3 ML NEB; +MELATONIN1 MG PO
[2017-06-04 18:52] LABS: ARTERIAL BLD GAS O2 SATURATION 97.7 % (90.0-100.0); ARTERIAL BLOOD GAS CARBOXY HB 1.2 %sat (0.0-9.0); ARTERIAL BLOOD GAS HCO3 41.6 mmol/L; ARTERIAL BLOOD GAS MET HB 0.6 %sat (0.0-2.0); ARTERIAL BLOOD GAS pH 7.389 (7.350-7.450)
[2017-06-04 18:59] LABS: BASOPHIL% 0.6 % (0-2.5); DIFF IND YES; EOSINOPHIL# 0.2 X10e3 (0-0.7); EOSINOPHIL% 3.1 % (0.0-7.0); HEMATOCRIT 24.7 % (35.0-45.0); HEMOGLOBIN 7.7 gm/dL (12.0-16.0); LYMPHOCYTE# 1.1 X10e3 (1.0-3.5); MEAN CELL VOLUME 90.7 FL (83-96); MEAN CORPUSCULAR HEMOGLOBIN 28.1 PG (28-34); MEAN PLATELET VOLUME 6.5 FL (6.5-11.5); MONOCYTE# 0.6 X10e3 (0-1.0); MONOCYTE% 9.4 % (3.0-12.0); NEUTROPHIL# 4.8 X10e3 (1.5-7.1); NEUTROPHIL% 70.9 % (40-75); PLATELET COUNT 214 X10e3 (140-420); RED BLOOD COUNT 2.73 X10e (3.90-5.30); RED CELL DISTRIBUTION WIDTH 18.1 % (11.0-15.5); WHITE BLOOD COUNT 6.7 X10e3 (4.0-10.5)
[2017-06-04 19:02] LABS: ARTERIAL BLOOD GAS ART SITE LEFT RADIAL; ARTERIAL BLOOD GAS DELIVERY NASAL CANNULA; ARTERIAL BLOOD GAS PCO2 68.9 mmHg (35.0-45.0); ARTERIAL DRAW? YES
[2017-06-04 19:12] LABS: ALBUMIN SERUM 3.3 g/dL (3.5-5.0); ALKALINE PHOSPHATASE 67 U/L (32-92); ALT (SGPT) 36 U/L (10-40); AST (SGOT) 27 U/L (10-42); BILIRUBIN,TOTAL 0.6 mg/dL (0.2-2.0); BLOOD UREA NITROGEN 41 mg/dL (9-23); BUN/CREATININE RATIO 29.28; CALCIUM SERUM 8.2 mg/dL (8.4-10.2); CARBON DIOXIDE 40 mmol/L (22-31); CHLORIDE 89 mmol/L (100-111); CREATININE SERUM 1.4 mg/dL (0.6-1.4); DIGOXIN (LANOXIN) 0.2 ng/ml (1.0-2.0); GLOM FILT RATE Estimated 35.6 mL/min (>60); GLUCOSE FASTING 193 mg/dL (70-110); INR 1.5; MAGNESIUM 1.9 mg/dL (1.6-3.0); PARTIAL THROMBOPLASTIN TIME 26.6 SECONDS (23.5-31.3); POTASSIUM 4.2 mmol/L (3.5-5.1); PROTEIN TOTAL SERUM 6.2 g/dL (6.0-8.3); PROTHROMBIN TIME (PATIENT) 16.7 SECONDS (10.0-11.7); SODIUM 137 mmol/L (135-145)
[2017-06-04 19:14] LABS: ANISOCYTOSIS SL; HYPOCHROMIA SL; PLATELET ESTIMATE NORMAL (NORMAL)
[2017-06-04 19:16] LABS: BILIRUBIN, DIRECT <0.1 mg/dL (0.0-0.2); BILIRUBIN,INDIRECT 0.5 mg/dL (0.0-0.9)
[2017-06-04 19:18] LABS: POC - CKMB <1.0 ng/mL (0.0-7.9); POC - TROPONIN <0.05 ng/mL (<=0.05)
[2017-06-04] MEDS ORDERED: IMDUR PO (20:58)
[2017-06-04] MEDS ORDERED: GLUCOTROL PO (20:58)
[2017-06-04] MEDS ORDERED: CALCIUM 500 +1 EAC5 PO (20:59)
[2017-06-04] MEDS ORDERED: FLONASE 0.05% N16 G1 (21:00)
[2017-06-04] MEDS ORDERED: CLARITIN10 M3 PO (21:00)
[2017-06-04] MEDS ORDERED: LOPRESSOR PO (21:01)
[2017-06-04] MEDS ORDERED: BUMETANIDE2 M1 PO (21:01)
[2017-06-04] MEDS ORDERED: CALCIUM CARBON650 M1 PO (21:02)
[2017-06-04] MEDS ORDERED: MUCINEX1200 MG PO (21:02)
[2017-06-04] MEDS ORDERED: DULERA 200 MCG/13 GM INH (21:02)
[2017-06-04] MEDS ORDERED: LIDODERM1 EACH TOP (21:05)
[2017-06-04] MEDS ORDERED: FERREX 150 PLU1 EACH PO (21:05)
[2017-06-04] MEDS ORDERED: COUMADIN3 MG PO (21:06)
[2017-06-04] MEDS ORDERED: MELATONIN1 MG PO (21:06)
[2017-06-04] MEDS ORDERED: LIPITOR PO (21:06)
[2017-06-04] MEDS ORDERED: IPRAT-ALBUT 0.5-3 ML INH (21:07)
[2017-06-04] MEDS ORDERED: ACETAMINOPHEN PO (21:07)
[2017-06-04 22:06] LABS: POC - CKMB 1.3 ng/mL (0.0-7.9); POC - TROPONIN <0.05 ng/mL (<=0.05)
[2017-06-05 02:19] LABS: URINE SOURCE CLEAN CATCH
[2017-06-05 02:24] LABS: URINE APPEARANCE CLEAR; URINE BILIRUBIN NEG (NEG); URINE BLOOD NEG (NEG); URINE COLOR YELLOW; URINE GLUCOSE 500 MG/DL (NEG); URINE KETONE NEG (NEG); URINE LEUKOCYTE ESTERASE TRACE (NEG); URINE NITRATE NEG (NEG); URINE PH 6.5 (5-8); URINE PROTEIN NEG (NEG); URINE SPECIFIC GRAVITY 1.012 (1.003-1.035); URINE UROBILINOGEN 0.2 MG/DL (NEG)
[2017-06-05 02:26] LABS: URBCS1 AUWI 0-2 /[HPF] (0-2); URINE BACTERIA AUWI NEG (NEGATIVE); URINE SQUAMOUS EPITHELIAL CELL NONE SEEN /[HPF]
[2017-06-05 02:34] LABS: CULTURE INDICATED? NO
[2017-06-05 09:37] LABS: HEMATOCRIT 28.2 % (35.0-45.0); MEAN CELL VOLUME 88.3 FL (83-96); MEAN CORPUSCULAR HEMOGLOBIN 28.2 PG (28-34); MEAN PLATELET VOLUME 6.4 FL (6.5-11.5); RED BLOOD COUNT 3.19 X10e (3.90-5.30); RED CELL DISTRIBUTION WIDTH 19.9 % (11.0-15.5); RETICULOCYTE 2.9 % (0.5-2.8); WHITE BLOOD COUNT 6.2 X10e3 (4.0-10.5)
[2017-06-05 09:51] LABS: INR 1.5; PROTHROMBIN TIME (PATIENT) 16.8 SECONDS (10.0-11.7)
[2017-06-05 10:22] LABS: FERRITIN 41 ng/mL (11-307)
[2017-06-05 10:36] LABS: BUN/CREATININE RATIO 27.5; CALCIUM SERUM 8.3 mg/dL (8.4-10.2); CREATININE SERUM 1.2 mg/dL (0.6-1.4); POTASSIUM 3.9 mmol/L (3.5-5.1)
[2017-06-06 06:48] LABS: INR 1.6; PROTHROMBIN TIME (PATIENT) 16.9 SECONDS (10.0-11.7)
[2017-06-06 07:20] LABS: BUN/CREATININE RATIO 32.72; CALCIUM SERUM 8.2 mg/dL (8.4-10.2); CREATININE SERUM 1.1 mg/dL (0.6-1.4); GLOM FILT RATE Estimated 47.7 mL/min (>60); POTASSIUM 4.5 mmol/L (3.5-5.1)
[2017-06-07 05:41] LABS: INR 1.7
[2017-06-07 06:28] LABS: BUN/CREATININE RATIO 28.33; CALCIUM SERUM 8.1 mg/dL (8.4-10.2); CREATININE SERUM 1.2 mg/dL (0.6-1.4); POTASSIUM 3.5 mmol/L (3.5-5.1)
[2017-06-08 04:01] LABS: HEMATOCRIT 28.3 % (35.0-45.0); HEMOGLOBIN 9.1 gm/dL (12.0-16.0); MEAN CELL VOLUME 87.8 FL (83-96); MEAN CORPUSCULAR HEMOGLOBIN 28.2 PG (28-34); MEAN CORPUSCULAR HGB CONC 32.1 g/dL (30-36); MEAN PLATELET VOLUME 6.6 FL (6.5-11.5); RED BLOOD COUNT 3.23 X10e (3.90-5.30); RED CELL DISTRIBUTION WIDTH 19.3 % (11.0-15.5); WHITE BLOOD COUNT 5.6 X10e3 (4.0-10.5)
[2017-06-08 04:15] LABS: INR 1.9; PROTHROMBIN TIME (PATIENT) 20.2 SECONDS (10.0-11.7)
[2017-06-08 04:38] LABS: BUN/CREATININE RATIO 26.15; CALCIUM SERUM 8.3 mg/dL (8.4-10.2); CREATININE SERUM 1.3 mg/dL (0.6-1.4); POTASSIUM 3.9 mmol/L (3.5-5.1)
== END 2017-06-08 14:30 | DRG 291 ==
LOC: CED 17:52 → CEDOF 22:00 → CED 22:15 → C3A PCU 22:57 → CEDOF 22:57 → C3A PCU 22:57
PROVIDERS: Internal Medicine; Internal Medicine Cardiovascular Disease; Student in an Organized Health Care Education/Training Program
PROC: 30233N1 Transfusion of Nonautologous Red Blood Cells into Peripheral Vein, Percutaneous Approach (ICD-10-PCS; principal; 2017-06-05)
DX: I13.0 Hypertensive heart and chronic kidney disease with heart failure and stage 1 through stage 4 chronic kidney disease, or unspecified chronic kidney disease (principal); I50.33 Acute on chronic diastolic (congestive) heart failure; J96.21 Acute and chronic respiratory failure with hypoxia; E11.22 Type 2 diabetes mellitus with diabetic chronic kidney disease; J96.22 Acute and chronic respiratory failure with hypercapnia; J44.1 Chronic obstructive pulmonary disease with (acute) exacerbation; E66.2 Morbid (severe) obesity with alveolar hypoventilation; N18.9 Chronic kidney disease, unspecified; Z87.891 Personal history of nicotine dependence; Z79.84 Long term (current) use of oral hypoglycemic drugs; I48.2 Chronic atrial fibrillation; Z79.01 Long term (current) use of anticoagulants; D63.1 Anemia in chronic kidney disease; I27.81 Cor pulmonale (chronic); Z68.39 Body mass index [BMI] 39.0-39.9, adult; Z66 Do not resuscitate; I27.2 Other secondary pulmonary hypertension; I25.10 Atherosclerotic heart disease of native coronary artery without angina pectoris; Z95.5 Presence of coronary angioplasty implant and graft; Z85.72 Personal history of non-Hodgkin lymphomas; Z86.19 Personal history of other infectious and parasitic diseases; Z88.1 Allergy status to other antibiotic agents; Z88.8 Allergy status to other drugs, medicaments and biological substances; Z83.6 Family history of other diseases of the respiratory system
CPT/HCPCS: 36415; 36430; 36600; 71010; 80048; 80076; 80162; 81003; 82274; 82550; 82553; 82607; 82728; 82803; 82947; 83735; 83880; 84484; 85025; 85027; 85044; 85610; 85730; 86850; 86900; 86901; 86923; 93005; 93970; 94640; 94660; 94664; 94760; 96374; 97116; 97162; 97165; 97530; 99285; G8978-GP; G8979-GP; G8987-GO; G8988-GO; G8989-GO; J1650; J1815; P9016

== ENCOUNTER → 2017-07-18 | Outpatient (CLI) | payer MEDICARE, OTHER ==
[~2017-07-18] MED LIST changes: +BUMETANIDE2 M1 PO; +CALCIUM CARBON650 M1 PO; +FLONASE 0.05% N16 G1; +IMDUR PO; +IPRAT-ALBUT 0.5-3 ML INH; +LIDODERM1 EACH TOP
--- NOTE | ~2017-07-18 | CR181 ---
[facility] A Service of [facility] & [facility] RADIOLOGY TEXT RESULTS PATIENT: DELONTE HERRING LOCATION: [facility] : 37 UNIT #: [id number] AGE: [address]: Sofiya Flowers MD SEX: F ORDER DR: [id number] [facility] [address] [place], [place] [address] [id number] O MR#: [id number] Acc #: [id number] NAME: DELONTE HERRING. : 1935 SEX: F STUDY DATE/TIME: 07/18/2017 20:57 UNIT: [facility] ROOM: STUDY DESCRIPTION: CR Lumbar Spine 2 or 3 Views Attending Physician: Sofiya Flowers M.D. Ordering Physician: Sofiya Flowers M.D. Primary Care Physician: Sofiya Flowers M.D. MEDICAL IMAGING REPORT This report is preliminary unless electronic signature is present EXAM Lumbar spine, 07/18 INDICATION Low back pain for 3 months but worse over the last 3 weeks. FINDINGS 3 views of the lumbar spine are compared with 03/29/2016. There is multilevel facet arthropathy in the vga-lr-jvcto lumbar spine. There is very mild grade 1 anterolisthesis of L5 on S1 and L4 on L5, presumably degenerative. There is a transitional S1 segment. There are no compression fractures. IMPRESSION Multilevel facet arthropathy with mild multilevel spondylolisthesis. No compression fractures. Dictated by... Jeffrey Vance Jr., M.D. THIS IS AN ELECTRONICALLY VERIFIED REPORT Jeffrey Vance Jr., M.D. at 07/19/2017 6:27 PM ANTHONY/vero TD: 07/19/2017 12:56 JOB #: [id number] MEDICAL IMAGING REPORT Page 1 of 1 COPY
--- NOTE | ~2017-07-18 | CR242 ---
[facility] A Service of [facility] RADIOLOGY TEXT RESULTS PATIENT: DELONTE HERRING LOCATION: [facility] : 37 UNIT #: [id number] AGE: [address]: Sofiya Flowers MD SEX: F ORDER DR: [id number] [facility] [address] [place], [place] [address] [id number] O MR#: [id number] Acc #: [id number] NAME: DELONTE HERRING. : 1935 SEX: F STUDY DATE/TIME: 07/18/2017 20:55 UNIT: [facility] ROOM: STUDY DESCRIPTION: CR Thoracic Spine 2 Views Attending Physician: Sofiya Flowers M.D. Ordering Physician: Sofiya Flowers M.D. Primary Care Physician: Sofiya Flowers M.D. MEDICAL IMAGING REPORT This report is preliminary unless electronic signature is present EXAM Thoracic spine, 07/18 INDICATION Upper back pain for 3 months but worse over the last 3 weeks. FINDINGS 3 views of thoracic spine are compared with PA and lateral chest x-ray from 04/19/2017. There is diffuse degenerative disease in the thoracic spine with endplate spurring. There is also diffuse degenerative disc disease and facet arthropathy in the cervical spine as seen on the swimmer's view today. No thoracic compression fractures are seen, and there is no subluxation. IMPRESSION Multilevel degenerative endplate disease. No fracture or subluxation is identified. Dictated by... Jeffrey Vance Jr., M.D. THIS IS AN ELECTRONICALLY VERIFIED REPORT Jeffrey Vance Jr., M.D. at 07/19/2017 6:27 PM ANTHONY/vero TD: 07/19/2017 13:15 JOB #: [id number] MEDICAL IMAGING REPORT Page 1 of 1 COPY
--- NOTE | ~2017-07-18 | CR63 ---
[facility] A Service of [facility] & [facility] RADIOLOGY TEXT RESULTS PATIENT: DELONTE HERRING LOCATION: [facility] : 37 UNIT #: [id number] AGE: [address]: Sofiya Flowers MD SEX: F ORDER DR: [id number] [facility] [address] [place], [place] [address] [id number] O MR#: [id number] Acc #: [id number] NAME: DELONTE HERRING. : 1935 SEX: F STUDY DATE/TIME: 07/18/2017 20:40 UNIT: [facility] ROOM: STUDY DESCRIPTION: CR Chest 2 View Attending Physician: Sofiya Flowers M.D. Ordering Physician: Sofiya Flowers M.D. Primary Care Physician: Sofiya Flowers M.D. MEDICAL IMAGING REPORT This report is preliminary unless electronic signature is present EXAM Chest x-ray 07/18 INDICATIONS Upper back pain, shortness of air for 3 months but worse over the last 3 weeks. FINDINGS 2 views of the chest compared with 06/04/2017. Heart remains enlarged. Mild interstitial opacity in the kkt-vl-fsvxw lungs bilaterally suggest mild edema. There are small residual pleural effusions. Findings are minimally improved relative to the prior study. There is no pneumothorax. IMPRESSION Cardiomegaly with probable mild residual edema and small bilateral effusions. Findings are slightly improved since the previous exam. Dictated by... Jeffrey Vance Jr., M.D. THIS IS AN ELECTRONICALLY VERIFIED REPORT Jeffrey Vance Jr., M.D. at 07/19/2017 6:27 PM ANTHONY/grace TD: 07/19/2017 13:02 JOB #: [id number] MEDICAL IMAGING REPORT Page 1 of 1 COPY
== END | disposition home or self-care (01) ==
LOC: CRAD 19:35
DX: M54.9 Dorsalgia, unspecified (principal); M47.894 Other spondylosis, thoracic region; J90 Pleural effusion, not elsewhere classified; I51.7 Cardiomegaly; M43.16 Spondylolisthesis, lumbar region; M46.96 Unspecified inflammatory spondylopathy, lumbar region
CPT/HCPCS: 71020; 72070; 72100